=== PATIENT | female | born 1965 | race African-American/Black ===

== ENCOUNTER 2017-12-24 07:43 | Emergency (ER) | payer MEDICARE ==
[2017-12-24] MEDS ORDERED: Nitroglycerin 0.4 MG TAB (25 Tab Bottle) ONE (08:51)
--- NOTE | 2017-12-24 09:01 | RAD ---
SINGLE VIEW OF THE CHEST: COMPARISON: 07/01/16. HISTORY: Intermittent left posterior upper back pain. FINDINGS: A single view of the chest shows an enlarged but stable cardiomediastinal silhouette. Increased inte rstitial lung markings are present. Hilar fullness likely represents pulmonary vasculature. There i s no evidence of consolidation, mass, or pleural effusion. IMPRESSION: Cardiomegaly without evidence of acute cardiopulmonary disease. POS: [facility]
[2017-12-24 09:42] LABS: #Eosinphils 0.1 thou/uL (0.0-0.7); #Lymphocytes 0.7 thou/uL (1.20-3.40); #Monocytes 0.4 thou/uL (0.11-0.59); #Neutrophils 4.3 thou/uL (1.40-6.50); %Basophils 0.1 % (0.0-1.0); %Eosinophils 1.1 % (0.0-10.0); %Lymphocytes 13.1 % (21.0-51.0); %Monocytes 7.6 % (0.0-10.0); %Neutrophils 78.1 % (42.0-75.0); Mean Corpuscular HGB CONC 32.2 g/dL (32.0-36.0); Mean Corpuscular Hemoglobin 29.4 pg (27.0-31.0); Mean Corpuscular Volume 91.2 fL (78.0-98.0); Mean Platelet Volume 8.2 fL (7.4-10.4); Platelet Count 191 thou/uL (130-400); RBC Distribution Width 14.1 % (11.5-14.5); Red Blood Cell (RBC) Count 4.77 mill/uL (4.20-5.40); White Blood Cell (WBC) Count 5.5 thou/uL (4.8-10.8)
[2017-12-24 10:02] LABS: ALT (SGPT) 17 U/L (8-55); AST (SGOT) 16 U/L (5-34); Alkaline Phosphatase 62 U/L (40-150); Anion Gap 14 mmol/L (10-20); BUN (Urea Nitrogen) 9 mg/dL (9.8-20.1); Bilirubin, Total 0.9 mg/dL (0.2-1.2); CK (CPK) 50 U/L (29-168); Calc. Creatinine Clearance 0 mL/min (70-130); Calcium 9.4 mg/dL (7.8-10.44); Carbon Dioxide 29 mmol/L (22-29); Chloride 104 mmol/L (98-107); Estimated GFR-MDRD 90; Globulin 3.2 g/dL (2.4-3.5); Glucose 95 mg/dL (70-105); Lipase 20 U/L (8-78); Potassium 3.5 mmol/L (3.5-5.1); Protein, Total 7.2 g/dL (6.0-8.3); Sodium 143 mmol/L (136-145)
[2017-12-24 10:06] LABS: CKMB 0.8 ng/mL (0-6.6); Troponin I Less than 0.010 ng/mL (< 0.028)
[2017-12-24] MEDS ORDERED: hydrALAZINE 20 MG/ML VIAL ONE ×2 (10:13→11:37)
[2017-12-24] MEDS ORDERED: ISOVUE-370 76%-LOCM 1 ML ONE (12:13)
--- NOTE | 2017-12-24 12:13 | CT ---
CTA OF THE CHEST WITH CONTRAST: COMPARISON: None. HISTORY: Intermittent left upper back pain that radiates to the shoulder and elevated D-dimer. Chest pain. TECHNIQUE: Multiple contiguous axial images were obtained in a CTA of the chest with contrast per pulmonary embo lism protocol. Three-D oblique MIP reformats and direct coronal reformats were performed. FINDINGS: The pulmonary arteries are well opacified without filling defect to suggest pulmonary emboli. The he art is normal in size without focal cardiac abnormality. No hilar or mediastinal lymphadenopathy is seen. No focal infiltrates are seen in the lungs. No pneumothorax or pleural effusion is seen. No suspici ous pulmonary nodules are present. The visualized subdiaphragmatic structures are unremarkable. Degenerative changes are seen in the sp ine. Edema is seen in the abdominal wall. The chest wall soft tissues are unremarkable. IMPRESSION: No evidence of pulmonary thromboembolism. POS: [facility]
[2017-12-24] MEDS ORDERED: Diazepam 5 MG TAB ONE (13:31)
[2017-12-24 13:43] LABS: Troponin I Less than 0.010 ng/mL (< 0.028)
== END 2017-12-24 14:46 | disposition home or self-care (01) ==
LOC: ERS 07:43
DX: M54.6 Pain in thoracic spine (principal); I10 Essential (primary) hypertension; I48.91 Unspecified atrial fibrillation; Z79.899 Other long term (current) drug therapy
CPT/HCPCS: 71045; 71275; 80053; 82550; 82553; 83690; 83880; 84484; 85025; 85379; 93005; 96374; 96376; J0360

== ENCOUNTER 2018-03-30 08:56 | Outpatient (CLI) | payer MEDICARE | END 2018-03-30 08:57 | disposition home or self-care (01) | LOC: BICMAMMO 08:56 | PROVIDERS: ATTEND Internal Medicine | DX: Z12.31 Encounter for screening mammogram for malignant neoplasm of breast (principal) | CPT/HCPCS: 77063; 77067 ==

== ENCOUNTER 2018-06-03 10:28 | Inpatient (IN) | payer MEDICARE ==
--- NOTE | 2018-06-03 11:22 | RAD ---
PA AND LATERAL CHEST: Date: 06/03/18 INDICATION: History of bronchitis with coughing up mucus, concern for pneumonia. COMPARISON: Prior exam dated 12/24/17. FINDINGS: There is cardiomegaly with mild pulmonary vascular congestion. This is much worse than seen on the co mparison examination. There is some perihilar and interstitial prominence possibly related to edema. No pleural effusion or pneumothorax is evident. IMPRESSION: Cardiomegaly with worsening pulmonary vascular congestion. Perihilar and interstitial prominence susp icious for edema. No air space consolidation to suggest pneumonia. POS: [facility]
[2018-06-03 11:51] LABS: #Lymphocytes 0.5 thou/uL (1.20-3.40); #Monocytes 0.2 thou/uL (0.11-0.59); #Neutrophils 7.3 thou/uL (1.40-6.50); %Basophils 0.2 % (0.0-1.0); %Eosinophils 0.3 % (0.0-10.0); %Lymphocytes 6.5 % (21.0-51.0); %Monocytes 2.8 % (0.0-10.0); %Neutrophils 90.3 % (42.0-75.0); Hemoglobin 14.1 g/dL (12.0-16.0); Mean Corpuscular HGB CONC 30.5 g/dL (32.0-36.0); Mean Corpuscular Hemoglobin 28.1 pg (27.0-31.0); Mean Platelet Volume 8.6 fL (7.4-10.4); Platelet Count 177 thou/uL (130-400); RBC Distribution Width 15.9 % (11.5-14.5); Red Blood Cell (RBC) Count 5.02 mill/uL (4.20-5.40); White Blood Cell (WBC) Count 8.1 thou/uL (4.8-10.8)
[2018-06-03] MEDS ORDERED: Furosemide 40 MG TAB ONE (12:04)
[2018-06-03] MEDS ORDERED: Nitroglycerin 2% Ointment 1 INCH/1 GM Packet ONE (12:04)
[2018-06-03] MEDS ORDERED: Furosemide 40 MG/4 ML VIAL ONE (12:05)
[2018-06-03 12:12] LABS: ALT (SGPT) 38 U/L (8-55); AST (SGOT) 30 U/L (5-34); Albumin 3.6 g/dL (3.5-5.0); Alkaline Phosphatase 57 U/L (40-150); Anion Gap 12 mmol/L (10-20); BUN (Urea Nitrogen) 14 mg/dL (9.8-20.1); Bilirubin, Total 0.7 mg/dL (0.2-1.2); Calc. Creatinine Clearance 0 mL/min (70-130); Calcium 9.1 mg/dL (7.8-10.44); Carbon Dioxide 29 mmol/L (22-29); Chloride 101 mmol/L (98-107); Estimated GFR-MDRD 78; Globulin 3.1 g/dL (2.4-3.5); Glucose 137 mg/dL (70-105); Potassium 4.3 mmol/L (3.5-5.1); Protein, Total 6.7 g/dL (6.0-8.3); Sodium 138 mmol/L (136-145)
[2018-06-03 12:17] LABS: CKMB 1.1 ng/mL (0-6.6); Troponin I 0.017 ng/mL (< 0.028)
--- NOTE | 2018-06-03 15:39 | CT ---
CTA THORAX UTILIZING IV CONTRAST AND 3D REFORMATTED IMAGING: Date: 06/03/18 INDICATION: History of cough. COMPARISON: Prior exam dated 12/24/17. FINDINGS: No central or segmental pulmonary embolus is evident. There is some reticulonodular opacity seen in a perihilar distribution, but most prominent within the right upper lobe and right lower lobe, suspici ous for bronchiolitis. There are enlarged lymph nodes within the right hilar region and right aspect of the mediastinum. One of the largest lymph nodes is seen within the right paratracheal region on im age 19 of series 2 measuring 1.4 cm. There is slight prominence of the prevascular lymph nodes. No ac [place] osseous abnormality is evident. IMPRESSION: 1. Findings suspicious for right-sided bronchiolitis, predominantly in right upper lobe and right lo wer lobe, with suspected reactive lymphadenopathy of the right hilar region and mediastinum. CT follo w-up in 6-8 weeks to document resolution is recommended. 2. No central or segmental pulmonary embolus. POS: [facility]
[2018-06-03] MEDS ORDERED: Magnesium 2 GM/50 ML BAG (IN WATER) ONE (16:15)
[2018-06-03] MEDS ORDERED: Water For Inject, Bacteriostat 30 ML ONE (16:15)
[2018-06-03] MEDS ORDERED: methylPREDNISolone Sod Succ/PF 125 MG/2 ML VIAL ONE (16:15)
[2018-06-03] MEDS ORDERED: Iopamidol 370 76% 100 ML VIAL ONE (16:24)
[2018-06-03] MEDS ORDERED: cloNIDine 0.1 MG TAB ONE (18:52)
[2018-06-03] MEDS ORDERED: hydrALAZINE 20 MG/ML VIAL SLOW IVP PRN (20:06)
[2018-06-03] MEDS ORDERED: Loratadine 10 MG TAB PO PRN (20:09)
[2018-06-03] MEDS ORDERED: hydrALAZINE 25 MG TAB PO SCH (20:15)
[2018-06-03] MEDS ORDERED: Flecainide 50 MG TAB PO SCH (20:15)
[2018-06-03] MEDS ORDERED: Carvedilol 25 MG TAB PO SCH (20:15)
[2018-06-03 20:32] VITALS: BMI 65.6
[2018-06-03] MEDS ORDERED: Sodium Chloride 0.9% 10 ML ONE (20:49)
[2018-06-03] MEDS: Diabetic Tussin 200 MG/10 ML UDCUP PO PRN (21:03)
[2018-06-04] MEDS ORDERED: Senokot S 8.6-50 MG TAB PO PRN (01:07)
[2018-06-04] MEDS ORDERED: Ondansetron PF 4 MG/2 ML Vial IVP PRN (01:07)
[2018-06-04] MEDS ORDERED: Bisacodyl 5 MG TAB PO PRN (01:07)
[2018-06-04] MEDS ORDERED: Acetaminophen 325 MG TAB PO PRN (01:07)
[2018-06-04] MEDS ORDERED: Acetaminophen 650 MG Suppository PR PRN (01:07)
[2018-06-04] MEDS ORDERED: Ondansetron ODT 4 MG TAB PO PRN (01:07)
[2018-06-04] MEDS ORDERED: Zolpidem Tartrate 5 MG TAB PO PRN (01:07)
[2018-06-04] MEDS: Diabetic Tussin 200 MG/10 ML UDCUP PO PRN (05:58)
[2018-06-04 06:01] LABS: Anion Gap 14 mmol/L (10-20); BUN (Urea Nitrogen) 17 mg/dL (9.8-20.1); Calc. Creatinine Clearance 184 mL/min (70-130); Calcium 8.9 mg/dL (7.8-10.44); Carbon Dioxide 31 mmol/L (22-29); Chloride 102 mmol/L (98-107); Estimated GFR-MDRD 83; Glucose 139 mg/dL (70-105); Potassium 4.9 mmol/L (3.5-5.1); Sodium 142 mmol/L (136-145)
[2018-06-04 06:27] LABS: #Lymphocytes 0.6 thou/uL (1.20-3.40); #Monocytes 0.3 thou/uL (0.11-0.59); #Neutrophils 6.8 thou/uL (1.40-6.50); %Basophils 0.2 % (0.0-1.0); %Eosinophils 0.1 % (0.0-10.0); %Lymphocytes 8.3 % (21.0-51.0); %Monocytes 3.2 % (0.0-10.0); %Neutrophils 88.1 % (42.0-75.0); Mean Corpuscular HGB CONC 29.4 g/dL (32.0-36.0); Mean Corpuscular Hemoglobin 27.8 pg (27.0-31.0); Mean Corpuscular Volume 94.8 fL (78.0-98.0); Mean Platelet Volume 9.3 fL (7.4-10.4); PLT Morphology Comment Appears Adequate; Platelet Count 177 thou/uL (130-400); RBC Distribution Width 16.2 % (11.5-14.5); RBC Morphology Normal; Red Blood Cell (RBC) Count 5.02 mill/uL (4.20-5.40); White Blood Cell (WBC) Count 7.7 thou/uL (4.8-10.8)
[2018-06-04] MEDS: Budesonide 0.5 MG/2 ML NEB INH SCH ×2 (06:52→18:25)
[2018-06-04] MEDS: predniSONE 20 MG TAB PO SCH (07:53)
[2018-06-04] MEDS: Enoxaparin Sodium 40 MG/0.4 ML SYRINGE SC SCH (07:53)
[2018-06-04] MEDS: hydrALAZINE 25 MG TAB PO SCH ×2 (07:54→20:19)
[2018-06-04] MEDS: Flecainide 50 MG TAB PO SCH ×2 (07:54→20:19)
[2018-06-04] MEDS: Famotidine 20 MG TAB PO SCH ×2 (07:54→20:19)
[2018-06-04] MEDS: Famotidine/PF 20 mg/2ml Vial SLOW IVP SCH ×2 (07:55→20:28)
[2018-06-04] MEDS: Carvedilol 25 MG TAB PO SCH ×2 (07:55→20:18)
[2018-06-04] MEDS ORDERED: Furosemide 80 MG TAB PO SCH (09:00)
[2018-06-04] MEDS: Guaifenesin DM 100-10/5 ML UDCUP PO SCH ×2 (11:40→17:32)
[2018-06-04] MEDS ORDERED: methylPREDNISolone Sod Succ/PF 125 MG/2 ML VIAL IVP SCH (11:45)
[2018-06-04] MEDS: Furosemide 40 MG/4 ML VIAL SLOW IVP SCH (14:51)
[2018-06-04] MEDS: Atorvastatin Calcium 10 MG TAB PO SCH (20:19)
[2018-06-05] MEDS: Guaifenesin DM 100-10/5 ML UDCUP PO SCH ×5 (00:06→23:56)
[2018-06-05] MEDS: Furosemide 40 MG/4 ML VIAL SLOW IVP SCH ×2 (05:05→13:40)
--- NOTE | 2018-06-05 07:51 | HP ---
CHIEF COMPLAINT: The patient presented to the ER with significant shortness or breath and cough. HISTORY OF PRESENT ILLNESS: This is a 52-year-old female with a history of CHF and AFib, came in with acute bronchitis like symptoms, cough, and sputum. The patient was given antibiotics, cefuroxime, as an outpatient, for which she does not respond. In the ER, when she was evaluated, her O2 sats were in 80s. The patient was never on oxygen at home. The patient denies any history of fever. PAST MEDICAL HISTORY: Significant for; 1. AFib, the patient is not on any anticoagulation. 2. Hypertension. 3. Osteoarthritis. PAST SURGICAL HISTORY: Significant for hysterectomy. PSYCHIATRIC HISTORY: No previous psychiatric history. SOCIAL HISTORY: Denies any alcohol or drug use. She has no smoking history. REVIEW OF SYMPTOMS: CONSTITUTIONAL: Denies any fever or cough, but extremely fatigued. HEENT: Positive for cough and sputum and denies any headache or fever. Denies any discharge from the ears or the eyes. Denies any pain in the neck or sore throat. RESPIRATORY: The patient complains of cough and also sputum which is really thick. CARDIOVASCULAR: The patient denies any chest pain or palpitations. GASTROINTESTINAL: The patient denies any abdominal pain. Denies any nausea, vomiting, diarrhea, or constipation. GENITOURINARY: The patient denies any dysuria or increased frequency. MUSCULOSKELETAL: The patient denies any history of swelling of the joints or pain in the joints. SKIN: Denies any rash or skin changes. NEUROLOGIC: Denies any headache or focal deficits or sensory changes. PHYSICAL EXAMINATION: VITAL SIGNS: Pulse 83, respiratory rate 20, and temperature 98.9. Pain 4. O2 saturation on room air is around 84%. CONSTITUTIONAL: Vital signs are reviewed. The patient is afebrile. Pulse and respiratory rate are within normal limits, except the pulse oximetry that shows low oxygenation. HEENT: Normocephalic atraumatic head. Eyelids and conjunctivae are within normal limits. Pupils are round and reactive to light. External ears and tympanic membrane are within normal limits. NECK: Normal range of motions in the neck and midline trachea. RESPIRATORY/CHEST: Wheezes heard all over, coarse breath sounds. CARDIOVASCULAR: Regular rate and rhythm. No murmurs. GASTROINTESTINAL: Soft, nontender, and nondistended. No masses are felt. Positive bowel sounds. MUSCULOSKELETAL: No swelling or redness of the joints. No edema of the lower extremities. NEUROLOGIC: Within normal limits. Cranial nerves are intact. No focal deficits. No motor or sensory deficits noted. RADIOLOGY DATA: Chest x-ray showing pulmonary edema and bronchitis. Chest and thorax CTA did not show any pulmonary embolism, does show some bronchitis and pulmonary edema. Beta-natriuretic peptide is 617.5. ASSESSMENT AND PLAN: 1. Bronchitis. We will treat the patient with IV steroids and nebulizers and IV antibiotics Levaquin. Continue to monitor and switch to p.o. steroids soon. 2. Acute on chronic congestive heart failure. We will change the home p.o. Lasix to IV Lasix and monitor the fluid intake and strict I's and O's. 3. History of atrial fibrillation. Continue the patient's flecainide, the patient is not on any anticoagulation at home. 4. Hypertension. Continue the patient's home medication for hypertension. Job ID: [id number]
[2018-06-05] MEDS: Budesonide 0.5 MG/2 ML NEB INH SCH ×2 (08:19→18:17)
[2018-06-05] MEDS ORDERED: methylPREDNISolone Sod Succ/PF 125 MG/2 ML VIAL IVP SCH ×2 (09:00)
[2018-06-05] MEDS: predniSONE 20 MG TAB PO SCH (09:38)
[2018-06-05] MEDS: hydrALAZINE 25 MG TAB PO SCH ×2 (09:39→21:13)
[2018-06-05] MEDS: Famotidine/PF 20 mg/2ml Vial SLOW IVP SCH ×2 (09:40→21:13)
[2018-06-05] MEDS: Famotidine 20 MG TAB PO SCH ×2 (09:40→21:13)
[2018-06-05] MEDS: Flecainide 50 MG TAB PO SCH ×2 (09:40→21:13)
[2018-06-05] MEDS: Enoxaparin Sodium 40 MG/0.4 ML SYRINGE SC SCH (09:41)
[2018-06-05] MEDS: Carvedilol 25 MG TAB PO SCH ×2 (09:41→21:12)
--- NOTE | 2018-06-05 15:34 | PDOC.PN ---
- Subjective Encounter Start Date: 06/05/18 Encounter Start Time: 15:30 Subjective: f/u for acute bronchitis, CHF on Levaquin, Lasix, Duonebs and Prednisone. -: Feels tired and sleepy. - Objective Resuscitation Status - Order Detail: 06/04/18 01:07 Resuscitation Status Routine Resuscitation Status: FULL: Full Resuscitation MAR Reviewed: Yes Vital Signs & Weight: Vital Signs (12 hours) Temp Pulse Resp BP Pulse Ox 06/05/18 14:57 70 16 92 L 06/05/18 12:00 97.6 F 68 18 122/81 98 06/05/18 11:30 70 20 92 L 06/05/18 09:39 74 06/05/18 08:19 74 20 94 L 06/05/18 08:18 74 20 94 L 06/05/18 08:00 97.5 F L 82 18 110/64 94 L Weight Weight 345 lb 0.375 oz I&O: 06/04/18 06/05/18 06/06/18 06:59 06:59 06:59 Intake Total 465 1624 Output Total 600 900 Balance -135 724 Result Diagrams: 06/04/18 05:23 06/04/18 05:23 Additional Labs: Microbiology 06/03/18 17:06 Nasal swab Influenza Types A,B Direct EIA - Final Laboratory Tests 12/24/17 06/03/18 09:32 11:42 B-Natriuretic Peptide 253.0 H 617.5 H Radiology Reviewed by me: Yes (2D echo - EF 55%, mod pulm regurg, severe TR) EKG Reviewed by me: Yes (Tele - SR) Phys Exam - Physical Examination Constitutional: NAD HEENT: PERRLA, sclera anicteric, oral pharynx no lesions Neck: no nodes, no JVD, supple, full ROM II/ JOEY RUSB Cardiovascular: RRR Gastrointestinal: soft, non-tender, no distention, positive bowel sounds Musculoskeletal: pulses present Neurological: normal sensation, moves all 4 limbs Psychiatric: A&O x 3 Skin: normal turgor, cap refill <2 seconds Dx/Plan (1) Acute bronchitis Code(s): J20.9 - ACUTE BRONCHITIS, UNSPECIFIED Status: Acute Comment: Continue Levaquin, Duonebs, Prednisone, Pulmicort (2) Acute respiratory failure with hypoxia Code(s): J96.01 - ACUTE RESPIRATORY FAILURE WITH HYPOXIA Status: Acute Comment: O2 supplementation to maintain sats > 90%, wean as clinically indicated (3) Acute on chronic diastolic (congestive) heart failure Code(s): I50.33 - ACUTE ON CHRONIC DIASTOLIC (CONGESTIVE) HEART FAILURE Status : Acute Comment: EF 50-55%, continue IV Lasix another 24h then convert to po, 2L/24h fluid restriction (4) HTN (hypertension) Code(s): I10 - ESSENTIAL (PRIMARY) HYPERTENSION Status: Chronic Qualifiers: Hypertension type: essential hypertension Qualified Code(s): I10 - Essential (primary) hypertension Comment: Continue Carvedilol (5) Morbid obesity Code(s): E66.01 - MORBID (SEVERE) OBESITY DUE TO EXCESS CALORIES Status: Chronic (6) Chronic atrial fibrillation Code(s): I48.2 - CHRONIC ATRIAL FIBRILLATION Status: Chronic Comment: continue Tambocor, Coreg, current SR - Plan plan discussed w/ family, continue antibiotics, PT/OT, high school social studies tutor, respiratory therapy, out of bed/ambulate, DVT proph w/SCDs Stable currently -: Continue Levaquin -: Continue Prednisone, Duonebs, Pulmicort -: Continue Lasix IV another 24h then convert to po -: AM lab: BMP * .
[2018-06-05] MEDS ORDERED: Allopurinol 300 MG TAB PO SCH (16:00)
[2018-06-05] MEDS: Atorvastatin Calcium 10 MG TAB PO SCH (21:12)
[2018-06-06 05:30] LABS: Anion Gap 12 mmol/L (10-20); BUN (Urea Nitrogen) 22 mg/dL (9.8-20.1); Calc. Creatinine Clearance 199 mL/min (70-130); Calcium 9.3 mg/dL (7.8-10.44); Carbon Dioxide 37 mmol/L (22-29); Chloride 99 mmol/L (98-107); Estimated GFR-MDRD 90; Glucose 119 mg/dL (70-105); Potassium 4.7 mmol/L (3.5-5.1); Sodium 143 mmol/L (136-145)
[2018-06-06] MEDS: Furosemide 40 MG/4 ML VIAL SLOW IVP SCH ×2 (05:35→16:15)
[2018-06-06] MEDS: Guaifenesin DM 100-10/5 ML UDCUP PO SCH ×3 (05:35→17:16)
[2018-06-06] MEDS: Budesonide 0.5 MG/2 ML NEB INH SCH ×2 (07:45→19:17)
[2018-06-06] MEDS: Flecainide 50 MG TAB PO SCH ×2 (09:28→21:17)
[2018-06-06] MEDS: Famotidine/PF 20 mg/2ml Vial SLOW IVP SCH ×3 (09:29→23:01)
[2018-06-06] MEDS: Famotidine 20 MG TAB PO SCH ×2 (09:33→21:17)
[2018-06-06] MEDS: Enoxaparin Sodium 40 MG/0.4 ML SYRINGE SC SCH (09:33)
[2018-06-06] MEDS: hydrALAZINE 25 MG TAB PO SCH ×2 (09:34→21:17)
[2018-06-06] MEDS: Allopurinol 300 MG TAB PO SCH (09:34)
[2018-06-06] MEDS: Carvedilol 25 MG TAB PO SCH ×2 (09:34→21:18)
[2018-06-06] MEDS: predniSONE 20 MG TAB PO SCH (09:35)
--- NOTE | 2018-06-06 15:17 | PDOC.PN ---
- Subjective Encounter Start Date: 06/06/18 Encounter Start Time: 15:10 Subjective: f/u for acute bronchitis, CHF on Levaquin, Duonebs, Prednisone. -: Overall feeling better but still with desaturations while ambulating - Objective Resuscitation Status - Order Detail: 06/04/18 01:07 Resuscitation Status Routine Resuscitation Status: FULL: Full Resuscitation MAR Reviewed: Yes Vital Signs & Weight: Vital Signs (12 hours) Temp Pulse Resp BP BP Pulse Ox 06/06/18 14:30 82 20 96 06/06/18 12:00 97.8 F 72 16 94 L 06/06/18 10:23 79 20 95 06/06/18 09:34 75 06/06/18 09:24 99.1 F 75 18 138/86 96 06/06/18 07:45 77 20 97 06/06/18 07:42 77 20 97 06/06/18 04:00 97.8 F 76 13 137/78 99 Weight Weight 343 lb 3.2 oz I&O: 06/05/18 06/06/18 06/07/18 06:59 06:59 06:59 Intake Total 1624 480 480 Output Total 900 700 Balance 724 -220 480 Result Diagrams: 06/04/18 05:23 06/06/18 04:42 Additional Labs: Microbiology 06/03/18 17:06 Nasal swab Influenza Types A,B Direct EIA - Final Laboratory Tests 12/24/17 06/03/18 09:32 11:42 B-Natriuretic Peptide 253.0 H 617.5 H EKG Reviewed by me: Yes (Tele - SR) Phys Exam - Physical Examination Constitutional: NAD HEENT: PERRLA, sclera anicteric, oral pharynx no lesions Neck: no nodes, no JVD, supple, full ROM diminished breath sounds bilat, occ exp wheezes II/ JOEY S1, S2 Cardiovascular: RRR, no significant murmur, no rub, gallop Gastrointestinal: soft, non-tender, no distention, positive bowel sounds Musculoskeletal: pulses present, edema present Neurological: normal sensation, moves all 4 limbs Psychiatric: normal affect, A&O x 3 Skin: normal turgor, cap refill <2 seconds Dx/Plan (1) Acute bronchitis Code(s): J20.9 - ACUTE BRONCHITIS, UNSPECIFIED Status: Acute Comment: Continue Levaquin, Duonebs, Prednisone, Pulmicort (2) Acute respiratory failure with hypoxia Code(s): J96.01 - ACUTE RESPIRATORY FAILURE WITH HYPOXIA Status: Acute Comment: O2 supplementation to maintain sats > 90%, wean as clinically indicated (3) Acute on chronic diastolic (congestive) heart failure Code(s): I50.33 - ACUTE ON CHRONIC DIASTOLIC (CONGESTIVE) HEART FAILURE Status : Acute Comment: EF 50-55%, continue IV Lasix another 24h then convert to po, 2L/24h fluid restriction (4) HTN (hypertension) Code(s): I10 - ESSENTIAL (PRIMARY) HYPERTENSION Status: Chronic Qualifiers: Hypertension type: essential hypertension Qualified Code(s): I10 - Essential (primary) hypertension Comment: Continue Carvedilol (5) Morbid obesity Code(s): E66.01 - MORBID (SEVERE) OBESITY DUE TO EXCESS CALORIES Status: Chronic (6) Chronic atrial fibrillation Code(s): I48.2 - CHRONIC ATRIAL FIBRILLATION Status: Chronic Comment: continue Tambocor, Coreg, current SR - Plan plan discussed w/ family, continue antibiotics, PT/OT, social work supervisor, respiratory therapy, out of bed/ambulate, DVT proph w/SCDs Stable currently -: Convert Levaquin 500mg po daily -: Change Prednisone 40mg po daily -: Mucinex 600mg BID -: Humidify O2 *
[2018-06-06] MEDS ORDERED: predniSONE 20 MG TAB PO SCH (15:45)
[2018-06-06] MEDS ORDERED: guaiFENesin ER 600 MG TAB PO SCH (17:00)
[2018-06-06] MEDS: Atorvastatin Calcium 10 MG TAB PO SCH (21:18)
[2018-06-06] MEDS: Diltiazem HCl 125 MG, Admixture Fee 1 EACH in Sodium Chloride 0.9% 100 ML IVPB SCH (22:47)
[2018-06-07] MEDS: Guaifenesin DM 100-10/5 ML UDCUP PO SCH ×5 (00:16→23:33)
[2018-06-07] MEDS: Furosemide 40 MG/4 ML VIAL SLOW IVP SCH ×2 (06:11→14:50)
[2018-06-07] MEDS: Budesonide 0.5 MG/2 ML NEB INH SCH ×2 (07:20→19:17)
[2018-06-07] MEDS ORDERED: predniSONE 20 MG TAB PO SCH (08:00)
[2018-06-07] MEDS: predniSONE 20 MG TAB PO SCH (08:31)
[2018-06-07] MEDS: Allopurinol 300 MG TAB PO SCH (08:31)
[2018-06-07] MEDS: Famotidine 20 MG TAB PO SCH ×2 (08:31→22:24)
[2018-06-07] MEDS: guaiFENesin ER 600 MG TAB PO SCH ×2 (08:32→22:24)
[2018-06-07] MEDS: Flecainide 50 MG TAB PO SCH ×2 (08:32→22:23)
[2018-06-07] MEDS: Carvedilol 25 MG TAB PO SCH ×2 (08:32→22:25)
[2018-06-07] MEDS: hydrALAZINE 25 MG TAB PO SCH ×2 (08:32→22:24)
[2018-06-07] MEDS: Enoxaparin Sodium 40 MG/0.4 ML SYRINGE SC SCH (09:41)
[2018-06-07] MEDS: Famotidine/PF 20 mg/2ml Vial SLOW IVP SCH ×2 (09:41→22:52)
[2018-06-07] MEDS ORDERED: Apixaban 5 MG TAB PO SCH (10:15)
[2018-06-07] MEDS: Diltiazem HCl 125 MG, Admixture Fee 1 EACH in Sodium Chloride 0.9% 100 ML IVPB SCH (15:30)
--- NOTE | 2018-06-07 18:02 | PDOC.PN ---
- Subjective Encounter Start Date: 06/07/18 Encounter Start Time: 17:20 Subjective: f/u for acute resp failure, bronchitis and A-fib with variable rate. -: Feels a little better and less SOB at rest but worse with ambulating. -: Still weak. - Objective Resuscitation Status - Order Detail: 06/04/18 01:07 Resuscitation Status Routine Resuscitation Status: FULL: Full Resuscitation MAR Reviewed: Yes Vital Signs & Weight: Vital Signs (12 hours) Temp Pulse Pulse Pulse Resp BP BP 06/07/18 16:58 97.4 F L 106 H 18 06/07/18 14:21 115 H 16 06/07/18 11:46 97.7 F 125 H 20 06/07/18 11:38 113 H 20 06/07/18 11:23 126 H 124 H 120/87 140/76 06/07/18 08:28 06/07/18 08:26 98.2 F 117 H 20 06/07/18 07:21 06/07/18 07:19 132 H 16 BP BP Pulse Ox Pulse Ox Pulse Ox 06/07/18 16:58 142/79 H 92 L 06/07/18 14:21 06/07/18 11:46 124/57 L 97 06/07/18 11:38 06/07/18 11:23 90 L 90 L 06/07/18 08:28 96 06/07/18 08:26 134/93 H 96 06/07/18 07:21 92 L 06/07/18 07:19 92 L Weight Weight 341 lb 3.2 oz I&O: 06/06/18 06/07/18 06/08/18 06:59 06:59 06:59 Intake Total 480 1410 Output Total 700 3400 Result Diagrams: 06/04/18 05:23 06/06/18 04:42 Additional Labs: Microbiology 06/03/18 17:06 Nasal swab Influenza Types A,B Direct EIA - Final Laboratory Tests 12/24/17 06/03/18 06/06/18 09:32 11:42 20:25 Magnesium 1.9 Ferritin B-Natriuretic Peptide 253.0 H 617.5 H 06/07/18 05:25 Magnesium Ferritin 80.78 B-Natriuretic Peptide EKG Reviewed by me: Yes (Tele - A-fib in low 100's) Phys Exam - Physical Examination Constitutional: NAD HEENT: PERRLA, sclera anicteric, oral pharynx no lesions Neck: no nodes, no JVD, supple, full ROM scattered coarse sounds, few exp wheezes, diminished in bases S1, S2 Cardiovascular: no significant murmur, no rub, gallop, irregular Gastrointestinal: soft, non-tender, no distention, positive bowel sounds Musculoskeletal: pulses present, edema present Neurological: normal sensation, moves all 4 limbs Psychiatric: A&O x 3 Skin: normal turgor, cap refill <2 seconds Dx/Plan (1) Acute bronchitis Code(s): J20.9 - ACUTE BRONCHITIS, UNSPECIFIED Status: Acute Comment: Continue Levaquin, Duonebs, Prednisone, Pulmicort (2) Acute respiratory failure with hypoxia Code(s): J96.01 - ACUTE RESPIRATORY FAILURE WITH HYPOXIA Status: Acute Comment: O2 supplementation to maintain sats > 90%, wean as clinically indicated (3) Acute on chronic diastolic (congestive) heart failure Code(s): I50.33 - ACUTE ON CHRONIC DIASTOLIC (CONGESTIVE) HEART FAILURE Status : Acute Comment: EF 50-55%, continue IV Lasix another 24h then convert to po, 2L/24h fluid restriction (4) HTN (hypertension) Code(s): I10 - ESSENTIAL (PRIMARY) HYPERTENSION Status: Chronic Qualifiers: Hypertension type: essential hypertension Qualified Code(s): I10 - Essential (primary) hypertension Comment: Continue Carvedilol (5) Morbid obesity Code(s): E66.01 - MORBID (SEVERE) OBESITY DUE TO EXCESS CALORIES Status: Chronic (6) Chronic atrial fibrillation Code(s): I48.2 - CHRONIC ATRIAL FIBRILLATION Status: Chronic Comment: continue Tambocor, Coreg, plan for cardioversion - Plan plan discussed w/ family, continue antibiotics, PT/OT, licensed clinical social worker, respiratory therapy, out of bed/ambulate Stable currently -: Continue Levaquin/Prednisone -: Humidified O2, Duonebs -: Continue rate-control measures, Cardizem gtt -: Eliquis 5mg BID * .
--- NOTE | 2018-06-07 21:48 | CON ---
DATE OF CONSULT: 06/07/18 The patient is a 55-year-old woman with a history of atrial flutter who presents with increasing dyspnea. The patient has a history of hypertension and congestive heart failure secondary to diastolic dysfunction. She also has a history of atrial fibrillation. The patient has previously undergone ablation for atrial flutter. She subsequently has been placed on Flecanide. The patient has been followed primarily by the EP service. She was admitted with dyspnea and bronchitis. The patient during her hospitalization went into a rapid irregular heart rhythm. Patient did not have any palpitations or chest discomfort. She reports feeling dyspneic. PAST MEDICAL HISTORY: 1. Atrial fibrillation/flutter. 2. Hypertension. 3. Morbid obesity. 4. Osteoarthritis. PAST SURGICAL HISTORY: Hysterectomy. SOCIAL HISTORY: She is a nonsmoker. ALLERGIES: Lisinopril, Penicillin, Bystolic, Duloxetine and Cymbalta. MEDICATIONS: See nursing list. PHYSICAL EXAMINATION: GENERAL: This is a morbidly obese woman in mild distress with a blood pressure of 134/93. NECK: Showed no jugular venous distention. LUNGS: Coarse breath sounds bilateral. HEART: Irregular rate and rhythm. Normal S1 and S2 with distant heart sounds. ABDOMEN: Markedly distended. EXTREMITIES: Show mild bilateral edema. VASCULAR: Radial pulses are 2+. LABORATORY RESULTS: White blood count 7.7, hemoglobin 14, hematocrit 47.6, platelets 177,000. Sodium 143, potassium 4.7, chloride 99, bicarbonate 32, BUN 22, creatinine 0.8. Troponin 0.017. EKG reveals atrial fibrillation with a rapid ventricular response. Echocardiogram revealed normal left ventricular ejection fraction of 50-55%. Severe tricuspid regurgitation with pulmonary hypertension. IMPRESSION: 1. Paroxysmal atrial fibrillation. 2. Bronchitis. 3. Hypertension. 4. Morbid obesity. 5. Pulmonary hypertension. 6. Severe tricuspid regurgitation. This patient presents with recurrent atrial fibrillation with a rapid ventricular response. Would recommend the patient undergo electrical cardioversion. In addition, the patient will need to be on chronic anticoagulation therapy as she has a CHADS-VASc score of 2. The life threatening consequences of her developing progressive pulmonary hypertension from her morbid obesity have been explained to the patient. She will need to undergo a sleep study. We will start anticoagulation therapy with Eliquis. We will follow this patient with you through her hospitalization. ANKUSH
--- NOTE | 2018-06-07 22:05 | EKG ---
Test Reason : STAT Blood Pressure : / mmHG Vent. Rate : 152 BPM Atrial Rate : 147 BPM P-R Int : 000 ms QRS Dur : 094 ms QT Int : 318 ms P-R-T Axes : 000 -42 072 degrees QTc Int : 505 ms Atrial fibrillation with rapid ventricular response Left axis deviation Possible Anterior infarct , age undetermined Abnormal ECG When compared with ECG of 03-JUN-2018 10:54, (Unconfirmed) Atrial fibrillation has replaced Sinus rhythm Vent. rate has increased BY 69 BPM QRS axis Shifted left Confirmed by Ricardo DIOR ([id number]) on 06/07/2018 10:04:45 PM Referred By: DAVID Confirmed By:Ricardo DIOR
[2018-06-07] MEDS: Apixaban 5 MG TAB PO SCH (22:24)
[2018-06-07] MEDS: Atorvastatin Calcium 10 MG TAB PO SCH (22:24)
[2018-06-08 06:06] LABS: Platelet Count 165 thou/uL (130-400)
[2018-06-08] MEDS: Guaifenesin DM 100-10/5 ML UDCUP PO SCH ×3 (06:16→18:42)
[2018-06-08] MEDS ORDERED: Sodium Chloride 0.9% 10 ML ONE (07:25)
[2018-06-08] MEDS: Budesonide 0.5 MG/2 ML NEB INH SCH ×3 (07:34→19:09)
[2018-06-08] MEDS: Furosemide 40 MG/4 ML VIAL SLOW IVP SCH ×2 (07:41→13:00)
[2018-06-08] MEDS ORDERED: PROPOFOL 40 ML ONE (07:46)
[2018-06-08] MEDS: Allopurinol 300 MG TAB PO SCH (09:39)
[2018-06-08] MEDS: predniSONE 20 MG TAB PO SCH (09:39)
[2018-06-08] MEDS: guaiFENesin ER 600 MG TAB PO SCH ×2 (09:40→20:58)
[2018-06-08] MEDS: Apixaban 5 MG TAB PO SCH ×2 (09:40→20:59)
[2018-06-08] MEDS: Carvedilol 25 MG TAB PO SCH ×2 (09:40→20:59)
[2018-06-08] MEDS: Famotidine/PF 20 mg/2ml Vial SLOW IVP SCH ×2 (09:40→22:36)
[2018-06-08] MEDS: Famotidine 20 MG TAB PO SCH ×2 (09:40→20:59)
[2018-06-08] MEDS: hydrALAZINE 25 MG TAB PO SCH ×2 (09:40→20:57)
[2018-06-08] MEDS: Flecainide 50 MG TAB PO SCH ×2 (09:40→20:58)
[2018-06-08] MEDS ORDERED: PROPOFOL 200 MG/20 ML VIAL ONE (11:31)
--- NOTE | 2018-06-08 13:59 | PDOC.PN ---
- Subjective Encounter Start Date: 06/08/18 Encounter Start Time: 14:00 Subjective: f/u for acute dyspnea, bronchitis and s/p cardioversion for PAF after RAPHAEL. -: Converted back to SR. - Objective Resuscitation Status - Order Detail: 06/04/18 01:07 Resuscitation Status Routine Resuscitation Status: FULL: Full Resuscitation MAR Reviewed: Yes Vital Signs & Weight: Vital Signs (12 hours) Temp Pulse Resp BP BP Pulse Ox 06/08/18 11:15 97.9 F 67 20 108/65 98 06/08/18 09:48 87 20 89 L 06/08/18 09:35 99 06/08/18 09:30 97.3 F L 71 20 129/81 99 06/08/18 04:00 97.6 F 119 H 19 103/79 94 L 06/08/18 02:08 115 H 18 92 L Weight Weight 334 lb 9.6 oz I&O: 06/07/18 06/08/18 06/09/18 06:59 06:59 06:59 Intake Total 1410 200 Output Total 3400 300 Balance -1989 Result Diagrams: 06/08/18 04:32 06/08/18 04:32 Additional Labs: Microbiology 06/03/18 17:06 Nasal swab Influenza Types A,B Direct EIA - Final Laboratory Tests 12/24/17 06/03/18 06/06/18 09:32 11:42 20:25 Magnesium 1.9 Ferritin B-Natriuretic Peptide 253.0 H 617.5 H 06/07/18 05:25 Magnesium Ferritin 80.78 B-Natriuretic Peptide EKG Reviewed by me: Yes (Tele - SR) Phys Exam - Physical Examination Constitutional: NAD HEENT: PERRLA, sclera anicteric, oral pharynx no lesions Neck: no nodes, no JVD, supple, full ROM few scattered coarse sounds S1, S2 II/ JOEY Cardiovascular: RRR, no rub, gallop Gastrointestinal: soft, non-tender, no distention, positive bowel sounds Musculoskeletal: pulses present, edema present Neurological: normal sensation, moves all 4 limbs Psychiatric: A&O x 3 Skin: normal turgor, cap refill <2 seconds Dx/Plan (1) Acute bronchitis Code(s): J20.9 - ACUTE BRONCHITIS, UNSPECIFIED Status: Acute Comment: Continue Levaquin, Duonebs, Prednisone, Pulmicort (2) Acute respiratory failure with hypoxia Code(s): J96.01 - ACUTE RESPIRATORY FAILURE WITH HYPOXIA Status: Acute Comment: O2 supplementation to maintain sats > 90%, wean as clinically indicated (3) Acute on chronic diastolic (congestive) heart failure Code(s): I50.33 - ACUTE ON CHRONIC DIASTOLIC (CONGESTIVE) HEART FAILURE Status : Acute Comment: EF 50-55%, continue IV Lasix another 24h then convert to po, 2L/24h fluid restriction (4) HTN (hypertension) Code(s): I10 - ESSENTIAL (PRIMARY) HYPERTENSION Status: Chronic Qualifiers: Hypertension type: essential hypertension Qualified Code(s): I10 - Essential (primary) hypertension Comment: Continue Carvedilol (5) Morbid obesity Code(s): E66.01 - MORBID (SEVERE) OBESITY DUE TO EXCESS CALORIES Status: Chronic (6) Chronic atrial fibrillation Code(s): I48.2 - CHRONIC ATRIAL FIBRILLATION Status: Chronic Comment: Continue Coreg, Tambocor, converted back to SR s/p cardiac ablation - Plan continue antibiotics, PT/OT, protective services social worker, respiratory therapy, out of bed/ ambulate Stable currently -: Continue pulmonary supportive mgmt -: Continue Eliquis 5mg BID -: Consider evaluation for home O2 -: Continue Prednisone 40mg daily * AM lab: H/H, creatinine * Likely home in 24-48h
[2018-06-08] MEDS: Atorvastatin Calcium 10 MG TAB PO SCH (20:58)
--- NOTE | 2018-06-08 21:42 | ECHO ---
52-year-old woman with paroxysmal atrial fibrillation. The patient was taken to the PACU. The patient was sedated by anesthesiology. A transesophageal pro be was placed into the distal esophagus and stomach. Echocardiographic images were obtained. The tr ansesophageal probe was removed. FINDINGS: 1. Normal left ventricular systolic function. 2. Normal mitral and aortic valves. 3. Mild mitral regurgitation. 4. Mild tricuspid regurgitation. 5. No thrombus in atrium or left atrial appendage. 6. Atherosclerotic debris in the descending aorta. IMPRESSION: No formed thrombus in the left atrial or left atrial appendage.
--- NOTE | 2018-06-08 21:45 | OP ---
52-year-old woman with paroxysmal atrial fibrillation. This patient was taken to the PACU. The patient was sedated by anesthesiology. The patient was shocke d by with 200 joules of synchronized electricity. The patient converted to normal sinus rhythm. IMPRESSION: Successful electrocardioversion.
[2018-06-09] MEDS: Guaifenesin DM 100-10/5 ML UDCUP PO SCH ×4 (00:21→17:34)
[2018-06-09] MEDS: Furosemide 40 MG/4 ML VIAL SLOW IVP SCH ×2 (06:11→14:13)
[2018-06-09] MEDS: Budesonide 0.5 MG/2 ML NEB INH SCH ×2 (07:27→19:30)
[2018-06-09] MEDS: Apixaban 5 MG TAB PO SCH ×2 (08:17→20:26)
[2018-06-09] MEDS: hydrALAZINE 25 MG TAB PO SCH ×2 (08:17→20:26)
[2018-06-09] MEDS: guaiFENesin ER 600 MG TAB PO SCH ×2 (08:18→20:26)
[2018-06-09] MEDS: Famotidine 20 MG TAB PO SCH ×2 (08:18→20:26)
[2018-06-09] MEDS: predniSONE 20 MG TAB PO SCH (08:18)
[2018-06-09] MEDS: Carvedilol 25 MG TAB PO SCH ×2 (08:18→20:26)
[2018-06-09] MEDS: Famotidine/PF 20 mg/2ml Vial SLOW IVP SCH (08:18)
[2018-06-09] MEDS: Flecainide 50 MG TAB PO SCH ×2 (08:18→20:26)
[2018-06-09] MEDS: Allopurinol 300 MG TAB PO SCH (08:18)
--- NOTE | 2018-06-09 16:08 | PDOC.PN ---
- Subjective Encounter Start Date: 06/09/18 Encounter Start Time: 16:00 Subjective: f/u for A-fib s/p cardioversion with current SR. Feels ok overall. -: Off supplemental O2 currently and feeling better. - Objective Resuscitation Status - Order Detail: 06/04/18 01:07 Resuscitation Status Routine Resuscitation Status: FULL: Full Resuscitation MAR Reviewed: Yes Vital Signs & Weight: Vital Signs (12 hours) Temp Pulse Pulse Pulse Resp BP BP 06/09/18 15:49 99.2 F 88 18 06/09/18 15:01 72 20 06/09/18 11:54 98.7 F 75 18 06/09/18 11:09 80 73 153/95 H 131/86 06/09/18 10:47 75 16 06/09/18 08:17 74 06/09/18 08:00 99.5 F 74 20 06/09/18 07:27 74 16 06/09/18 07:24 74 16 BP BP Pulse Ox Pulse Ox Pulse Ox 06/09/18 15:49 120/66 93 L 06/09/18 15:01 92 L 06/09/18 11:54 144/96 H 93 L 06/09/18 11:09 96 92 L 06/09/18 10:47 94 L 06/09/18 08:17 06/09/18 08:00 124/72 92 L 06/09/18 07:27 91 L 06/09/18 07:24 91 L Weight Weight 333 lb 11.2 oz I&O: 06/08/18 06/09/18 06/10/18 06:59 06:59 06:59 Intake Total 200 680 Output Total 300 400 Balance -100 280 Result Diagrams: 06/08/18 04:32 06/08/18 04:32 Additional Labs: Microbiology 06/03/18 17:06 Nasal swab Influenza Types A,B Direct EIA - Final Laboratory Tests 12/24/17 06/03/18 06/06/18 09:32 11:42 20:25 Magnesium 1.9 Ferritin B-Natriuretic Peptide 253.0 H 617.5 H 06/07/18 05:25 Magnesium Ferritin 80.78 B-Natriuretic Peptide EKG Reviewed by me: Yes (Tele - SR) Phys Exam - Physical Examination Constitutional: NAD smiling HEENT: PERRLA, sclera anicteric, oral pharynx no lesions Neck: no nodes, no JVD, supple, full ROM few scattered coarse sounds S1, S2 Cardiovascular: RRR, no significant murmur, no rub, gallop Gastrointestinal: soft, non-tender, no distention, positive bowel sounds Musculoskeletal: pulses present, edema present Neurological: normal sensation, moves all 4 limbs Psychiatric: normal affect, A&O x 3 Skin: normal turgor, cap refill <2 seconds Dx/Plan (1) Acute bronchitis Code(s): J20.9 - ACUTE BRONCHITIS, UNSPECIFIED Status: Acute Comment: Continue Levaquin, Duonebs, Prednisone, Pulmicort (2) Acute respiratory failure with hypoxia Code(s): J96.01 - ACUTE RESPIRATORY FAILURE WITH HYPOXIA Status: Acute Comment: O2 supplementation to maintain sats > 90%, weaned off O2 support (3) Acute on chronic diastolic (congestive) heart failure Code(s): I50.33 - ACUTE ON CHRONIC DIASTOLIC (CONGESTIVE) HEART FAILURE Status : Acute Comment: EF 50-55%, convert to Lasix 40mg po daily, 2L/24h fluid restriction (4) HTN (hypertension) Code(s): I10 - ESSENTIAL (PRIMARY) HYPERTENSION Status: Chronic Qualifiers: Hypertension type: essential hypertension Qualified Code(s): I10 - Essential (primary) hypertension Comment: Continue Carvedilol (5) Morbid obesity Code(s): E66.01 - MORBID (SEVERE) OBESITY DUE TO EXCESS CALORIES Status: Chronic (6) Chronic atrial fibrillation Code(s): I48.2 - CHRONIC ATRIAL FIBRILLATION Status: Chronic Comment: Continue Coreg, Tambocor, converted back to SR s/p cardiac ablation - Plan plan discussed w/ family, continue antibiotics, PT/OT, criminal justice social worker, respiratory therapy, out of bed/ambulate, DVT proph w/SCDs Stable overall -: Continue pulmonary supportive mgmt -: Continue Eliquis 5mg BID -: Change Lasix 40mg po daily -: D/C Pepcid IV * OOB/ambulate * Home in am
[2018-06-09] MEDS: Atorvastatin Calcium 10 MG TAB PO SCH (20:26)
[2018-06-10] MEDS: Guaifenesin DM 100-10/5 ML UDCUP PO SCH ×2 (01:02→05:58)
[2018-06-10 06:30] LABS: Hemoglobin 13.7 g/dL (12.0-16.0); Platelet Count 129 thou/uL (130-400)
[2018-06-10] MEDS: Budesonide 0.5 MG/2 ML NEB INH SCH (07:26)
[2018-06-10] MEDS ORDERED: Furosemide 40 MG TAB PO SCH (07:30)
[2018-06-10] MEDS ORDERED: predniSONE 5 MG TAB PO SCH (08:00)
[2018-06-10 08:43] VITALS: TEMP 98.2
[2018-06-10] MEDS: hydrALAZINE 25 MG TAB PO SCH (09:05)
[2018-06-10] MEDS: predniSONE 20 MG TAB PO SCH (09:05)
[2018-06-10] MEDS: Apixaban 5 MG TAB PO SCH (09:06)
[2018-06-10] MEDS: Carvedilol 25 MG TAB PO SCH (09:06)
[2018-06-10] MEDS: Flecainide 50 MG TAB PO SCH (09:07)
[2018-06-10] MEDS: guaiFENesin ER 600 MG TAB PO SCH (09:07)
[2018-06-10] MEDS: Allopurinol 300 MG TAB PO SCH (09:07)
[2018-06-10] MEDS: Famotidine 20 MG TAB PO SCH (09:08)
--- NOTE | 2018-06-10 11:13 | DIS ---
DATE OF ADMISSION: 06/03/2018 DATE OF DISCHARGE: 06/10/2018 DISCHARGE DIAGNOSES: 1. Acute bronchitis, improved. 2. Acute hypoxic respiratory failure, multifactorial, resolved. 3. Acute on chronic diastolic congestive heart failure with ejection fraction of 50% to 55%. 4. Atrial fibrillation with variable rate, status post cardioversion and conversion to sinus mechanism. 5. Chronic anticoagulation with Eliquis. 6. Hypertension, stable. 7. Morbid obesity. CONSULTATIONS: Dr. Ramirez with Cardiology Service. PERTINENT LAB AND X-RAY FINDINGS: Magnesium level 1.9. Ferritin 80.8. LFTs within normal limits. BNP 618. CBC showed a hemoglobin ranging between 13.7 to 14.1. Influenza A and B antigen dated 06/03/2018, negative. Portable chest x-ray dated 06/03/2018, showed cardiomegaly with pulmonary vascular congestion. CT angiogram of the chest dated 06/03/2018, showed right-sided bronchiolitis in the right upper and right lower lobe. No evidence for pulmonary embolus. 2D transthoracic echocardiogram dated 06/04/2018 showed ejection fraction 50% to 55%. Moderate left atrial enlargement. Severe tricuspid valve regurgitation. Moderate pulmonic regurgitation. HOSPITAL COURSE: The patient was initially admitted to the Telemetry unit after presenting with dyspnea with hypoxemia with O2 saturations in the 80% range on room air. The patient underwent extensive evaluation including chest imaging showing evidence of bronchitis. The patient was placed on IV Solu-Medrol, bronchodilator therapy with nebulized treatments in addition to Levaquin. The patient was slow to clinically improve and remained on oxygen supplementation for the majority of her hospital course. The patient was also noted with pulmonary edema in the context of known diastolic heart failure. The patient was placed on Lasix. The patient did diurese appropriately; however, remained short of breath and hypoxic. The patient's telemetry monitoring did show atrial fibrillation with a known history of chronic atrial fibrillation. Cardiology consultation was obtained, at which point, the patient was deemed an appropriate candidate for cardioversion. The patient underwent transesophageal echocardiogram proceeding to cardioversion with successful return of sinus mechanism. The patient was continued on Eliquis 5 mg b.i.d. in addition to flecainide. The patient remained in sinus mechanism for the remainder of the hospital course. The patient did transition off oxygen supplementation, maintaining O2 saturations greater than 90% on room air. The patient ambulated without assistance or difficulty and exhibited stable vital signs. I have examined the patient at the time of discharge and discussed followup instructions. The patient and family verbalized understanding and in agreement, and ready for discharge on 06/10/2018. DISCHARGE MEDICATIONS: 1. Allopurinol 300 mg p.o. q.a.m. 2. Enteric-coated aspirin 81 mg p.o. daily. 3. Carvedilol 25 mg p.o. b.i.d. 4. Flecainide 100 mg p.o. b.i.d. 5. Hydralazine 100 mg p.o. b.i.d. 6. Eliquis 5 mg p.o. b.i.d. 7. Lipitor 10 mg p.o. q.h.s. 8. Lasix 40 mg p.o. daily. 9. Levaquin 500 mg p.o. daily x5 days. 10. Prednisone 10 mg to take 2 tablets p.o. b.i.d. x2 days, followed by 3 tabs p.o. daily x2 days, followed by 2 tablets p.o. daily x2 days, followed by 1 tab p.o. daily x2 days. FOLLOWUP: The patient may follow up with her primary care provider, Dr. Jazz Pruett, within 7 days of discharge. The patient to follow up with Dr. Mark Ramirez, on 06/15/2018 at 2:45 p.m. The patient to follow up with Dr. Everett Curtis, to assist with setting up a sleep study on an outpatient basis. SPECIAL INSTRUCTIONS: The patient will be scheduled for outpatient cardiac rehabilitation on 06/19/2018 at 1:15 p.m. CONDITION ON DISCHARGE: Stable. ACTIVITY: Ad-camacho. DIET: Heart healthy. CODE STATUS: Full. DISPOSITION: Home on 06/10/2018. TIME SPENT: Total time preparing and coordinating discharge 36 minutes. Job ID: [id number]
[2018-06-10 12:28] VITALS: BP 118/77
--- NOTE | 2018-06-10 15:07 | PDOC.CTH ---
Cardiology Progress Note - Subjective The pt seen and examined. No overnight events. No cardiac complaints. - Objective Vital Signs Temp Pulse Pulse Pulse Resp BP BP 06/10/18 12:26 84 84 118/77 121/75 06/10/18 09:05 78 06/10/18 08:09 98.2 F 78 18 06/10/18 07:32 06/10/18 07:26 77 16 06/10/18 05:56 18 06/10/18 03:22 98 F 80 17 06/10/18 03:18 BP Pulse Ox Pulse Ox Pulse Ox 06/10/18 12:26 97 91 L 06/10/18 09:05 06/10/18 08:09 151/89 H 100 06/10/18 07:32 100 06/10/18 07:26 06/10/18 05:56 100 06/10/18 03:22 137/82 94 L 06/10/18 03:18 84 L Weight 325 lb 4.8 oz 06/09/18 06/10/18 06/11/18 06:59 06:59 06:59 Intake Total 680 727 Output Total 400 1600 Balance 280 -873 - Physical Examination General/Neuro: alert & oriented x3 Neck: no JVD present Lungs: CTA Heart: RRR Abdomen: soft Extremities: other: (1-2+ pitting BLE edema) - Telemetry Telemetry Rhythm: SR - Labs Result Diagrams: 06/10/18 04:52 06/10/18 04:52 Troponin/CKMB CK-MB (CK-2) 1.1 ng/mL (0-6.6) 06/03/18 11:42 Troponin I 0.017 ng/mL (< 0.028) 06/03/18 11:42 - Assessment/Plan 1. Acute on Chronic Diastolic HF - Stable with Lasix, Bblocker. 2. Afib - Remains in SR; on Flecainide, BBlocker, and Eliquis 3. Acute bronchitis - stable with RA 4. HTN - stable 5. Morbid obesity - weight management education given to the pt and family MAR reviewed * From Cardiac standpoint, the pt is stable to d/c home. The pt will f/u with Dr Ramirez on Tuesday. Review of Systems - Review of Systems Constitutional: reports: no symptoms reported EENTM: reports: no symptoms reported Respiratory: reports: no symptoms reported Cardiac (ROS): reports: no symptoms reported ABD/GI: reports: no symptoms reported : reports: no symptoms reported Musculoskeletal: reports: no symptoms reported
[2018-06-13] MEDS ORDERED: predniSONE 5 MG TAB PO SCH (08:00)
== END 2018-06-10 11:14 | disposition home or self-care (01) | DRG 291 ==
LOC: ERS 10:28 → 2NO 17:41
PROVIDERS: ADMIT Internal Medicine; ATTEND Internal Medicine
PROC: 5A2204Z Restoration of Cardiac Rhythm, Single (ICD-10-PCS; principal; 2018-06-08)
PROC: B246ZZ4 Ultrasonography of Right and Left Heart, Transesophageal (ICD-10-PCS; 2018-06-08)
DX: I11.0 Hypertensive heart disease with heart failure (principal); J96.01 Acute respiratory failure with hypoxia; Z68.44 Body mass index [BMI] 60.0-69.9, adult; I48.92 Unspecified atrial flutter; I50.33 Acute on chronic diastolic (congestive) heart failure; J20.9 Acute bronchitis, unspecified; M19.90 Unspecified osteoarthritis, unspecified site; I48.0 Paroxysmal atrial fibrillation; E66.01 Morbid (severe) obesity due to excess calories; I07.1 Rheumatic tricuspid insufficiency; I37.1 Nonrheumatic pulmonary valve insufficiency; Z88.0 Allergy status to penicillin; Z88.8 Allergy status to other drugs, medicaments and biological substances
CPT/HCPCS: 36415; 36416; 71046; 71275; 80048; 80053; 82553; 82565; 82728; 83735; 83880; 84484; 85014; 85018; 85025; 85049; 87804; 90471; 90686; 92960; 93005; 93010; 93306; 93312; 93798; 94640; 94760; 96365; 96375; G0008; J1650; J1940; J1956; J2704; J2930; J7050; J7506; J7620; J7626; S0028

== ENCOUNTER 2018-06-11 06:18 | Observation (INO) | payer MEDICARE ==
[2018-06-11] MEDS ORDERED: Albuterol Sulfate 2.5 mg/0.5 ml Neb ONE ×2 (07:13)
[2018-06-11 07:22] LABS: #Lymphocytes 0.4 thou/uL (1.20-3.40); #Monocytes 0.2 thou/uL (0.11-0.59); #Neutrophils 4.3 thou/uL (1.40-6.50); %Eosinophils 0.2 % (0.0-10.0); %Lymphocytes 7.7 % (21.0-51.0); %Monocytes 4.5 % (0.0-10.0); %Neutrophils 87.7 % (42.0-75.0); Hemoglobin 14.5 g/dL (12.0-16.0); Mean Corpuscular HGB CONC 30.3 g/dL (32.0-36.0); Mean Corpuscular Hemoglobin 27.8 pg (27.0-31.0); Mean Corpuscular Volume 91.8 fL (78.0-98.0); Mean Platelet Volume 9.7 fL (7.4-10.4); Platelet Count 135 thou/uL (130-400); RBC Distribution Width 15.4 % (11.5-14.5); Red Blood Cell (RBC) Count 5.23 mill/uL (4.20-5.40); White Blood Cell (WBC) Count 4.9 thou/uL (4.8-10.8)
[2018-06-11 07:29] LABS: ALT (SGPT) 34 U/L (8-55); AST (SGOT) 22 U/L (5-34); Albumin 3.4 g/dL (3.5-5.0); Alkaline Phosphatase 47 U/L (40-150); BUN (Urea Nitrogen) 16 mg/dL (9.8-20.1); Calc. Creatinine Clearance 0 mL/min (70-130); Calcium 9.6 mg/dL (7.8-10.44); Estimated GFR-MDRD 87; Globulin 2.8 g/dL (2.4-3.5); Glucose 137 mg/dL (70-105); Protein, Total 6.2 g/dL (6.0-8.3)
[2018-06-11 07:38] LABS: Anion Gap 14 mmol/L (10-20); Chloride 91 mmol/L (98-107); Potassium 3.8 mmol/L (3.5-5.1); Sodium 143 mmol/L (136-145)
--- NOTE | 2018-06-11 07:40 | RAD ---
PORTABLE CHEST: DATE: 06/11/2018. PROVIDED CLINICAL HISTORY: Bronchitis and shortness of breath. FINDINGS: Comparison is made with the study dated 06/03/2018. Evaluation is limited by patient body habitus. C ardiac silhouette remains prominently enlarged. Prominence of the pulmonary vasculature and pulmonar y interstitium are redemonstrated. No focal consolidation, pleural fluid, or pneumothorax apparent. IMPRESSION: Cardiomegaly and findings suggesting congestive failure. POS: [facility]
[2018-06-11] MEDS ORDERED: Water For Inject, Bacteriostat 30 ML ONE (07:41)
[2018-06-11] MEDS ORDERED: methylPREDNISolone Sod Succ/PF 125 MG/2 ML VIAL ONE (07:41)
[2018-06-11 07:45] LABS: Carbon Dioxide 42 mmol/L (22-29)
[2018-06-11 07:47] LABS: CKMB 0.8 ng/mL (0-6.6)
[2018-06-11] MEDS ORDERED: Ondansetron ODT 4 MG TAB SL PRN (09:00)
[2018-06-11] MEDS ORDERED: Acetaminophen 325 MG TAB PO PRN (09:00)
[2018-06-11] MEDS ORDERED: Ondansetron PF 4 MG/2 ML Vial IVP PRN ×2 (09:00→14:16)
[2018-06-11] MEDS ORDERED: Furosemide 40 MG/4 ML VIAL ONE (09:19)
[2018-06-11] MEDS ORDERED: Nitroglycerin 2% Ointment 1 INCH/1 GM Packet ONE (09:45)
[2018-06-11 10:41] VITALS: BMI 62.6
[2018-06-11 10:45] LABS: Troponin I 0.038 ng/mL (< 0.028)
[2018-06-11 12:45] LABS: Troponin I 0.049 ng/mL (< 0.028)
[2018-06-11] MEDS ORDERED: Ondansetron ODT 4 MG TAB PO PRN (14:16)
[2018-06-11] MEDS ORDERED: Acetaminophen 500 MG TAB PO PRN (14:16)
[2018-06-11] MEDS ORDERED: hydrALAZINE 20 MG/ML VIAL SLOW IVP PRN (14:16)
[2018-06-11] MEDS ORDERED: Benzonatate 100 MG CAP PO PRN (14:16)
[2018-06-11] MEDS ORDERED: predniSONE 20 MG TAB PO SCH (14:30)
[2018-06-11] MEDS: Carvedilol 25 MG TAB PO SCH (20:15)
[2018-06-11] MEDS: Flecainide 50 MG TAB PO SCH (20:15)
[2018-06-11] MEDS: Apixaban 5 MG TAB PO SCH (20:15)
[2018-06-11] MEDS: hydrALAZINE 25 MG TAB PO SCH (20:15)
[2018-06-11] MEDS: Famotidine 20 MG TAB PO SCH (20:24)
--- NOTE | 2018-06-11 20:46 | HP ---
PRIMARY CARE PROVIDER: Dr. Jazz Pruett. CHIEF COMPLAINT: Shortness of breath. HISTORY OF PRESENT ILLNESS: This is a 52-year-old female, who was discharged on 06/10/2018 after recent admission for acute bronchitis as well as acute hypoxic respiratory failure, multifactorial in nature. The patient was discharged home on prednisone as well as Levaquin, however, did not qualify for home oxygen and maintained O2 saturations in the low 90% range on room air prior to discharge 06/10/2018. The patient states she awoke approximately 3:00 a.m. with increased shortness of breath and was unable to catch her breath. The patient presented to the emergency room and was noted with O2 saturations in the 85% range on room air. The patient denied any associated chest pain, jaw or left arm discomfort. The patient states she has been compliant with the medication regimen she was given at the time of discharge 06/10/2018. In the emergency room, the patient underwent chest imaging showing prominent pulmonary vasculature without acute infiltrate. The patient received transdermal nitroglycerin, aspirin 325 mg, Lasix 40 mg x1 dose, Solu-Medrol and DuoNebs. The patient was also placed on oxygen supplementation and transferred to the observation unit for evaluation. PAST MEDICAL HISTORY: 1. Acute bronchitis with recent admission and discharge on 06/10/2018. 2. Furqd-qu-pxqxrub hypoxic respiratory failure. 3. Xsbej-nd-hvfxmmy diastolic congestive heart failure with preserved ejection fraction of 50% to 55%. 4. Atrial fibrillation with variable rate, status post cardioversion with conversion to sinus mechanism. 5. Chronic anticoagulation with Eliquis. 6. Hypertension. 7. Morbid obesity. 8. Question of obstructive sleep apnea. PAST SURGICAL HISTORY: 1. Status post hysterectomy. 2. Status post cardioversion for atrial fibrillation. CURRENT MEDICATIONS: 1. Allopurinol 300 mg p.o. daily. 2. Enteric-coated aspirin 81 mg p.o. daily. 3. Carvedilol 25 mg p.o. b.i.d. 4. Flecainide 100 mg p.o. b.i.d. 5. Hydralazine 100 mg p.o. b.i.d. 6. Eliquis 5 mg p.o. b.i.d. 7. Lipitor 10 mg p.o. at bedtime. 8. Lasix 40 mg p.o. daily. 9. Levaquin 500 mg p.o. daily. 10. Prednisone. ALLERGIES: DULOXETINE, LISINOPRIL, AND NEBIVOLOL AND PENICILLIN. FAMILY HISTORY: Positive for hypertension. SOCIAL HISTORY: The patient is , accompanied by her in the hospital. Resides in [place], [place]. No current alcohol, tobacco, or illicit drug use. REVIEW OF SYSTEMS: CONSTITUTIONAL: Negative for weight loss or gain, ability to conduct usual activities. SKIN: Negative for rash, itching. EYES: Negative for double vision, pain. ENT/MOUTH: Negative for nose bleeding, neck stiffness, pain, tenderness. CARDIOVASCULAR: Negative for palpitations, dyspnea on exertion, orthopnea. RESPIRATORY: Negative for shortness of breath, wheezing, cough, hemoptysis, fever or night sweats. GASTROINTESTINAL: Negative for poor appetite, abdominal pain, heartburn, nausea, vomiting, constipation, or diarrhea. GENITOURINARY: Negative for urgency, frequency, dysuria, nocturia. MUSCULOSKELETAL: Negative for pain, swelling. NEUROLOGIC/PSYCHIATRIC: Negative for anxiety, depression. ALLERGY/IMMUNOLOGIC: Negative for skin rash, bleeding tendency. Otherwise, negative except as stated per HPI. PHYSICAL EXAMINATION: VITAL SIGNS: Currently, blood pressure 155/93, pulse 75, respiratory rate 24, temperature 98.2 degrees Fahrenheit, and O2 saturation 98% on 2 L/minute by nasal cannula. GENERAL APPEARANCE: This is a 52-year-old female, alert and oriented x3, pleasant, and conversant, in no acute distress. HEENT: Pupils are equal, round, reactive to light and accommodation. Extraocular muscles are intact. No scleral icterus. No conjunctival injection. Nares patent. OP is clear. Teeth in good repair. NECK: Supple. No cervical adenopathy. No thyromegaly. No carotid bruits. No JVD appreciated. Cervical spine with full active and passive range of motion. No meningeal signs appreciated. CHEST: Diminished breath sounds in the bases bilaterally. No crackles noted. CARDIOVASCULAR: S1 and S2 with a 2/6 systolic ejection murmur in the left upper sternal border. ABDOMEN: Obese, soft, nontender, and nondistended. Bowel sounds are positive in all 4 quadrants. There is no hepatosplenomegaly. No abdominal bruits. No rebound or guarding appreciated. EXTREMITIES: Warm and dry with fair turgor. Mild nonpitting edema bilaterally. Pulses are palpable distally at the dorsalis pedis, posterior tibial, and popliteal arteries bilaterally. Capillary refill less than 2 seconds. NEUROLOGIC: Cranial nerves 2 through 12 are grossly intact. No focal or lateralizing signs appreciated. PERTINENT LAB AND X-RAY FINDINGS: Sodium 143, potassium 3.8, chloride 91, CO2 of 42, BUN 16, creatinine 0.83, glucose 137, calcium 9.6. LFTs within normal limits. Troponin I ranged between 0.036 to 0.049. BNP 272, previously noted 618 on 06/03/2018. CBC showed a white blood cell count of 4.9, hemoglobin 14.5, hematocrit 48, platelet count 135 with 88% neutrophils. Portable chest x-ray dated 06/11/2018 by my review shows cardiomegaly with prominent pulmonary markings. EKG dated 06/11/2018 by my interpretation shows sinus mechanism with heart rates in the 70s. Attenuated R-wave is noted in the precordial leads. Normal axis. No acute ST-T wave changes appreciated. ASSESSMENT AND PLAN: 1. Gbkck-cw-qeovqlq hypoxic respiratory failure. Suspect multifactorial given the patient's recent acute bronchitis. We will continue general pulmonary supportive management. Prednisone 40 mg daily. DuoNeb q.4 hours while awake. Reassess for home oxygen. 2. Acute bronchitis. Slow to clinically improve. Resume prednisone 40 mg p.o. daily. Levaquin 500 mg p.o. daily. DuoNeb q.4 hours p.r.n. 3. Atrial fibrillation, status post cardioversion with return to sinus mechanism, stable currently. Sinus mechanism noted on EKG. Continue flecainide 100 mg p.o. b.i.d. and Eliquis 5 mg p.o. b.i.d. 4. Elevated troponin I. Suspect demand ischemia in the context of acute presentation of respiratory failure. Continue general supportive management as outlined in #1. 5. Chronic anticoagulation. Continue Eliquis 5 mg p.o. b.i.d. for atrial fibrillation. 6. Prophylaxis. Sequential compression device while in bed. Protonix 40 mg p.o. daily. 7. Code status is full. Surrogate medical decision maker is the patient's spouse. Job ID: [id number]
[2018-06-11 20:58] LABS: Hemoglobin 14.6 g/dL (12.0-16.0); Platelet Count 132 thou/uL (130-400)
[2018-06-11] MEDS ORDERED: Atorvastatin Calcium 10 MG TAB PO SCH (21:00)
[2018-06-12 04:56] LABS: Band 2 % (5-11); Hemoglobin 14.5 g/dL (12.0-16.0); Lymphocytes 4 % (21-51); MDiff Complete? YES; Mean Corpuscular HGB CONC 30.7 g/dL (32.0-36.0); Mean Corpuscular Hemoglobin 27.6 pg (27.0-31.0); Mean Corpuscular Volume 89.7 fL (78.0-98.0); Mean Platelet Volume 10.3 fL (7.4-10.4); Monocytes 7 % (0-10); Neutrophil 87 % (42-75); PLT Morphology Comment Appears Decreased; Platelet Count 114 thou/uL (130-400); RBC Distribution Width 15.4 % (11.5-14.5); Red Blood Cell (RBC) Count 5.28 mill/uL (4.20-5.40)
[2018-06-12 05:26] LABS: BUN (Urea Nitrogen) 17 mg/dL (9.8-20.1); Calc. Creatinine Clearance 184 mL/min (70-130); Calcium 9.3 mg/dL (7.8-10.44); Estimated GFR-MDRD 87; Glucose 160 mg/dL (70-105)
[2018-06-12 05:36] LABS: Anion Gap 17 mmol/L (10-20); Carbon Dioxide 37 mmol/L (22-29); Chloride 91 mmol/L (98-107); Potassium 4.3 mmol/L (3.5-5.1); Sodium 141 mmol/L (136-145)
[2018-06-12] MEDS ORDERED: Furosemide 40 MG TAB PO SCH (07:30)
[2018-06-12] MEDS ORDERED: predniSONE 20 MG TAB PO SCH (08:00)
[2018-06-12] MEDS: hydrALAZINE 25 MG TAB PO SCH (08:09)
[2018-06-12] MEDS: Apixaban 5 MG TAB PO SCH (08:09)
[2018-06-12] MEDS: Famotidine 20 MG TAB PO SCH (08:09)
[2018-06-12] MEDS: Flecainide 50 MG TAB PO SCH (08:10)
[2018-06-12] MEDS: Carvedilol 25 MG TAB PO SCH (08:10)
[2018-06-12 15:51] VITALS: BP 126/96; TEMP 98.5
--- NOTE | 2018-06-12 16:31 | DIS ---
DATE OF ADMISSION: 06/11/2018 DATE OF DISCHARGE: 06/12/2018 DISCHARGE DIAGNOSES: 1. Acute on chronic hypoxic respiratory failure, multifactorial including acute bronchitis. 2. Acute bronchitis. 3. Atrial fibrillation, status post cardioversion with current sinus mechanism. 4. Chronic anticoagulation with Eliquis. 5. Elevated troponin I secondary to demand ischemia. 6. Morbid obesity. 7. Obstructive sleep apnea suspected. CONSULTATIONS: None. PERTINENT LABORATORY AND DIAGNOSTIC DATA: Carbon dioxide level ranged between 37 to 42. Troponin I ranged between 0.036 to 0.049. BNP 272, previously noted 618 on 06/03/2018. Portable chest x-ray, dated 06/11/2018, showed cardiomegaly and pulmonary vascular prominence. HOSPITAL COURSE: The patient was observed after presenting with increasing shortness of breath and hypoxemia in the context of known acute bronchitis and suspected obstructive sleep apnea. The patient was placed on oxygen supplementation and given bronchodilator therapy with overall improvement and symptomatology. The patient was assessed for home oxygen needs and noted to be 86% on room air at rest. The patient continued her regular regimen to include prednisone and Levaquin as well as DuoNeb for general pulmonary supportive treatment. Vital signs remained stable throughout the hospital course and telemetry monitoring showed a consistent sinus mechanism. I have examined the patient at the time of discharge and discussed followup instructions. The patient overall clinically stable and ready for discharge on 06/12/2018. DISCHARGE MEDICATIONS: 1. Enteric-coated aspirin 81 mg p.o. daily. 2. Carvedilol 25 mg p.o. b.i.d. 3. Tambocor 100 mg p.o. b.i.d. 4. Allopurinol 300 mg p.o. q.a.m. 5. Hydralazine 100 mg p.o. b.i.d. 6. Prednisone 40 mg p.o. daily x2 days, followed by 20 mg p.o. daily x2 days, followed by 10 mg p.o. daily x2 days. 7. Eliquis 5 mg p.o. b.i.d. 8. Lipitor 10 mg p.o. at bedtime. 9. Lasix 40 mg p.o. daily. 10. DuoNeb 3 mL nebulized q.4 hours p.r.n. 11. Levaquin 500 mg p.o. daily. FOLLOWUP: The patient may follow up with Dr. Jazz Pruett within 7 days of discharge. The patient will follow up with Dr. Mark Ramirez with [facility] on 06/15/2018 at 3:45 p.m. CONDITION ON DISCHARGE: Stable. ACTIVITY: Ad camacho. SPECIAL INSTRUCTIONS: Home oxygen at 2 L/minute via nasal cannula. DIET: Heart healthy. CODE STATUS: Full. DISPOSITION: Home on 06/12/2018. Job ID: [id number]
--- NOTE | 2018-06-17 13:26 | EKG ---
Test Reason : Blood Pressure : / mmHG Vent. Rate : 078 BPM Atrial Rate : 078 BPM P-R Int : 150 ms QRS Dur : 090 ms QT Int : 416 ms P-R-T Axes : 049 048 024 degrees QTc Int : 474 ms Normal sinus rhythm Possible Left atrial enlargement Cannot rule out Anterior infarct , age undetermined Abnormal ECG Confirmed by KISHAN MOORE DO ([id number]), food editor KAY KOCH ([id number]) on 06/17/2018 1:25:55 PM Referred By: Confirmed By:KISHAN MOORE DO
== END 2018-06-12 18:26 | disposition home or self-care (01) ==
LOC: ERS 06:18 → 2SW 09:47
PROVIDERS: ADMIT Family Medicine; ATTEND Family Medicine
DX: J96.21 Acute and chronic respiratory failure with hypoxia (principal); J20.9 Acute bronchitis, unspecified; I48.91 Unspecified atrial fibrillation; R79.89 Other specified abnormal findings of blood chemistry; G47.33 Obstructive sleep apnea (adult) (pediatric); I11.0 Hypertensive heart disease with heart failure; I50.33 Acute on chronic diastolic (congestive) heart failure; E66.01 Morbid (severe) obesity due to excess calories; Z68.44 Body mass index [BMI] 60.0-69.9, adult; Z79.01 Long term (current) use of anticoagulants; Z79.52 Long term (current) use of systemic steroids; Z79.82 Long term (current) use of aspirin; Z79.899 Other long term (current) drug therapy; Z88.0 Allergy status to penicillin; Z88.8 Allergy status to other drugs, medicaments and biological substances; Z91.018 Allergy to other foods
CPT/HCPCS: 71045; 80048; 80053; 82553; 82565; 83880; 84484 ×2; 85007; 85014; 85018; 85025; 85027; 85049; 93005; 94640 ×3; 94760; 96374; 96375; 97139 ×2; 99285; G0378 ×2; G8978; G8979; G8980; 36415; J1940; J2930; J7506; J7611; J7620

== ENCOUNTER 2018-06-25 21:04 | Emergency (ER) | payer MEDICARE | END 2018-06-25 22:29 | disposition home or self-care (01) | LOC: ERS 21:04 | DX: B36.0 Pityriasis versicolor (principal); I48.91 Unspecified atrial fibrillation; I10 Essential (primary) hypertension; Z79.82 Long term (current) use of aspirin; Z79.52 Long term (current) use of systemic steroids; Z79.899 Other long term (current) drug therapy | CPT/HCPCS: 99282 ==

== ENCOUNTER 2018-07-05 20:30 | Outpatient (CLI) | payer MEDICARE | END 2018-07-05 20:31 | disposition home or self-care (01) | LOC: SLEEPLAB 20:30 | PROVIDERS: ATTEND Internal Medicine Cardiovascular Disease | DX: G47.33 Obstructive sleep apnea (adult) (pediatric) (principal); I10 Essential (primary) hypertension; R53.83 Other fatigue; E66.9 Obesity, unspecified; R09.02 Hypoxemia | CPT/HCPCS: 95811 ==

== ENCOUNTER 2018-07-08 10:41 | Observation (INO) | payer MEDICARE ==
[2018-07-08 11:09] LABS: #Basophils 0.1 thou/uL (0.0-0.2); #Eosinphils 0.1 thou/uL (0.0-0.7); #Lymphocytes 0.9 thou/uL (1.20-3.40); #Monocytes 0.4 thou/uL (0.11-0.59); %Basophils 1.5 % (0.0-1.0); %Eosinophils 2.3 % (0.0-10.0); %Lymphocytes 20.9 % (21.0-51.0); %Monocytes 8.7 % (0.0-10.0); %Neutrophils 66.6 % (42.0-75.0); Hemoglobin 12.9 g/dL (12.0-16.0); Mean Corpuscular HGB CONC 31.7 g/dL (32.0-36.0); Mean Corpuscular Hemoglobin 28.7 pg (27.0-31.0); Mean Corpuscular Volume 90.6 fL (78.0-98.0); Mean Platelet Volume 8.2 fL (7.4-10.4); Platelet Count 262 thou/uL (130-400); RBC Distribution Width 17.5 % (11.5-14.5); White Blood Cell (WBC) Count 4.5 thou/uL (4.8-10.8)
[2018-07-08 11:15] LABS: INR-International Normal Ratio 1.6; PTT 40.2 SEC (22.9-36.1); Prothrombin Time 18.7 SEC (12.0-14.7)
[2018-07-08 11:33] LABS: ALT (SGPT) 22 U/L (8-55); AST (SGOT) 20 U/L (5-34); Albumin 3.5 g/dL (3.5-5.0); Alkaline Phosphatase 51 U/L (40-150); Anion Gap 14 mmol/L (10-20); BUN (Urea Nitrogen) 8 mg/dL (9.8-20.1); Bilirubin, Total 0.6 mg/dL (0.2-1.2); CK (CPK) 24 U/L (29-168); Calc. Creatinine Clearance 0 mL/min (70-130); Calcium 9.4 mg/dL (7.8-10.44); Carbon Dioxide 30 mmol/L (22-29); Chloride 100 mmol/L (98-107); Estimated GFR-MDRD 85; Globulin 3.2 g/dL (2.4-3.5); Glucose 106 mg/dL (70-105); Potassium 4.1 mmol/L (3.5-5.1); Protein, Total 6.7 g/dL (6.0-8.3); Sodium 140 mmol/L (136-145)
[2018-07-08 12:01] LABS: CKMB 0.6 ng/mL (0-6.6)
--- NOTE | 2018-07-08 12:18 | RAD ---
CHEST 1 VIEW: Date: 07/08/18 HISTORY: Dyspnea. COMPARISON: Radiograph dated 06/11/18. FINDINGS: Heart size is enlarged. Mild edema. Small effusions. Pulmonary arteries dilated. IMPRESSION: Cardiomegaly with mild edema and small effusions. POS: [facility]
[2018-07-08] MEDS ORDERED: Albuterol Sulfate 2.5 mg/0.5 ml Neb ONE (13:09)
[2018-07-08] MEDS ORDERED: Albuterol Sulfate 2.5 mg/3 ml Neb ONE (13:09)
[2018-07-08 14:42] LABS: Troponin I 0.023 ng/mL (< 0.028)
[2018-07-08] MEDS ORDERED: Furosemide 40 MG/4 ML VIAL ONE (16:54)
[2018-07-08] MEDS ORDERED: Acetaminophen 325 MG TAB PO PRN (19:26)
[2018-07-08] MEDS ORDERED: Ondansetron PF 4 MG/2 ML Vial IVP PRN ×2 (19:26→19:43)
[2018-07-08] MEDS ORDERED: Ondansetron ODT 4 MG TAB SL PRN (19:26)
[2018-07-08 19:29] VITALS: BMI 61.2
[2018-07-08] MEDS ORDERED: Acetaminophen 500 MG TAB PO PRN (19:43)
[2018-07-08] MEDS ORDERED: Diabetic Tussin 200 MG/10 ML UDCUP PO PRN (19:43)
[2018-07-08] MEDS ORDERED: Ondansetron ODT 4 MG TAB PO PRN (19:43)
[2018-07-08] MEDS ORDERED: Benzonatate 100 MG CAP PO PRN (19:43)
[2018-07-08] MEDS ORDERED: hydrALAZINE 20 MG/ML VIAL SLOW IVP PRN (19:43)
[2018-07-08] MEDS ORDERED: Furosemide 20 MG/2 ML VIAL SLOW IVP SCH (20:00)
[2018-07-08] MEDS: Flecainide 50 MG TAB PO SCH (20:50)
[2018-07-08] MEDS: Apixaban 5 MG TAB PO SCH (20:50)
[2018-07-08] MEDS: Carvedilol 25 MG TAB PO SCH (20:51)
[2018-07-08] MEDS: Famotidine 20 MG TAB PO SCH (20:51)
[2018-07-08] MEDS: hydrALAZINE 25 MG TAB PO SCH (20:51)
[2018-07-08 21:09] LABS: Troponin I 0.015 ng/mL (< 0.028)
--- NOTE | 2018-07-09 00:46 | HP ---
PRIMARY CARE PROVIDER: Jazz Pruett MD CHIEF COMPLAINT: Shortness of breath and general malaise. HISTORY OF PRESENT ILLNESS: This is a 52-year-old female, who presents to [facility] Emergency Department complaining of 1 to 2 day history of increasing fatigue, shortness of breath, general malaise and weakness. The patient with recent admission and discharge from 06/11/2018 through 06/12/2018 due to [id number] hypoxic respiratory failure, multifactorial, including acute bronchitis. The patient with chronic oxygen supplementation at 2 L/minute by nasal cannula. She states she continues to use her oxygen, however, does not feel like she is getting enough air. The patient states she underwent a sleep study on 07/05/2018, however, has not received the results and is not currently on a CPAP or BiPAP machine currently. The patient states she will follow up with her llama farmer in early August of 2018. The patient denied any specific increasing swelling, edema, fever, or chills. The patient states she has been compliant with her chronic medication regimen. The patient admits to increased fatigue, general weakness, and decreased stamina. The patient states she has used her bronchodilator therapy including DuoNebs without specific worsening or improvement in her overall respiratory status. In the emergency room, the patient underwent general evaluation including chest imaging showing mild edema without an acute infiltrate. The patient received Lasix 40 mg x1 dose, albuterol sulfate and DuoNeb therapy. The patient was referred to the hospitalist service for evaluation. PAST MEDICAL HISTORY: 1. Chronic hypoxic respiratory failure, on chronic oxygen supplementation at 2 to 3 L/minute by nasal cannula. 2. Status post acute bronchitis. 3. Atrial fibrillation, status post cardioversion with return to sinus mechanism. 4. Chronic anticoagulation with Eliquis. 5. Obstructive sleep apnea. 6. Morbid obesity. 7. Snmql-go-kdbizib diastolic heart failure with preserved ejection fraction 50% to 55%. PAST SURGICAL HISTORY: 1. Status post hysterectomy. 2. Status post cardioversion for atrial fibrillation. CURRENT MEDICATIONS: 1. Allopurinol 300 mg p.o. daily. 2. Enteric-coated aspirin 81 mg p.o. daily. 3. Carvedilol 25 mg p.o. b.i.d. 4. Flecainide 100 mg p.o. b.i.d.. 5. Hydralazine 100 mg p.o. b.i.d. 6. Eliquis 5 mg p.o. b.i.d. 7. Lipitor 10 mg p.o. at bedtime. 8. Lasix 40 mg p.o. daily. ALLERGIES: DULOXETINE, LISINOPRIL, NEBIVOLOL, AND PENICILLIN. FAMILY HISTORY: Positive for hypertension. SOCIAL HISTORY: The patient is , accompanied by her in the emergency room. Resides in [place], [place]. No current alcohol, tobacco, or illicit drug use. REVIEW OF SYSTEMS: CONSTITUTIONAL: Negative for weight loss or gain, ability to conduct usual activities. SKIN: Negative for rash, itching. EYES: Negative for double vision, pain. ENT/MOUTH: Negative for nose bleeding, neck stiffness, pain, tenderness. CARDIOVASCULAR: Negative for palpitations, dyspnea on exertion, orthopnea. RESPIRATORY: Negative for wheezing, cough, hemoptysis, fever or night sweats. GASTROINTESTINAL: Negative for poor appetite, abdominal pain, heartburn, nausea, vomiting, constipation, or diarrhea. GENITOURINARY: Negative for urgency, frequency, dysuria, nocturia. MUSCULOSKELETAL: Negative for pain, swelling. NEUROLOGIC/PSYCHIATRIC: Negative for anxiety, depression. ALLERGY/IMMUNOLOGIC: Negative for skin rash, bleeding tendency. Otherwise, negative except as stated per HPI. PHYSICAL EXAMINATION: VITAL SIGNS: On admission, blood pressure 116/66, pulse 77, respiratory rate 15, temperature 99 degrees Fahrenheit, O2 saturation 97% on 2 L/minute by nasal cannula. GENERAL APPEARANCE: This is a 52-year-old female, alert and oriented x3, pleasant, conversant, in no acute distress. HEENT: Pupils are equal, round, reactive to light and accommodation. Extraocular muscles are intact. No scleral icterus. No conjunctival injection. Nares patent. OP is clear. Teeth in good repair. NECK: Supple. No cervical adenopathy. No thyromegaly. No carotid bruits. No JVD appreciated. Cervical spine with full active and passive range of motion. No meningeal signs noted. CHEST: Diminished breath sounds in the bases bilaterally. CARDIOVASCULAR: S1 and S2 without noted murmur, rub, or gallop. ABDOMEN: Obese, soft, nontender, and nondistended. Bowel sounds are positive in all four quadrants. There is no hepatosplenomegaly. No abdominal bruits. No rebound or guarding appreciated. EXTREMITIES: Warm and dry with fair turgor. Pitting edema to the mid shins bilaterally. Chronic venous stasis changes bilaterally. Pulses palpable distally at the dorsalis pedis, posterior tibial, and popliteal arteries bilaterally. Capillary refill less than 2 seconds. NEUROLOGIC: Cranial nerves 2 through 12 are grossly intact. No focal or lateralizing signs appreciated. PERTINENT LABORATORY FINDINGS: Sodium 140, potassium 4.1, chloride 100, CO2 of 30, BUN 8, creatinine 0.84, glucose 106, and calcium 9.4. LFTs within normal limits. Troponin I ranged between 0.020 and 0.029. BNP 494, previously noted 272, 06/11/2018. CBC showed a white blood cell count of 4.5, hemoglobin 13, hematocrit 41, platelet count 262 with 67% neutrophils. PT 18.7, INR 1.6, and PTT 40.2. DIAGNOSTIC STUDIES: Portable chest x-ray dated 07/08/2018 showed cardiomegaly with mild edema. EKG dated 07/08/2018 by my interpretation shows a sinus mechanism with heart rates in the 70s. Attenuated R-waves noted in the precordial leads. Normal axis. No acute ST-T wave changes appreciated. ASSESSMENT/PLAN: 1. Dyspnea. The patient will be observed on the telemetry unit. Suspect multifactorial dyspnea in addition to chronic hypoxic respiratory failure on chronic oxygen supplementation at 2 L/minute by nasal cannula. We will continue general supportive management and monitor clinical response. 2. Chronic hypoxic respiratory failure. Continue oxygen supplementation to maintain O2 saturations greater than equal to 90%. DuoNeb q.4 hours p.r.n. 3. Chronic diastolic congestive heart failure with preserved ejection fraction of 50% to 55%. Minimal edema of bilateral lung paige. Resume Lasix 40 mg p.o. daily. Daily weights and monitor urine output. 4. Obstructive sleep apnea. Currently undergoing evaluation for a home BiPAP/CPAP. Continue oxygen supplementation and monitor respiratory status. We will follow up as an outpatient with Pulmonology Service. 5. Chronic anticoagulation. Continue Eliquis 5 mg p.o. b.i.d. Currently in sinus rhythm. 6. Prophylaxis. SCDs while in bed. Pepcid 20 mg p.o. b.i.d. PT evaluation in the a.m. 7. Code status: Full. Surrogate medical decision maker is the patient's spouse. Job ID: [id number]
[2018-07-09] MEDS ORDERED: Furosemide 40 MG/4 ML VIAL SLOW IVP SCH (06:00)
[2018-07-09 07:10] LABS: Hemoglobin 12.3 g/dL (12.0-16.0); Mean Corpuscular HGB CONC 31.3 g/dL (32.0-36.0); Mean Corpuscular Hemoglobin 28.6 pg (27.0-31.0); Mean Corpuscular Volume 91.6 fL (78.0-98.0); Platelet Count 264 thou/uL (130-400); RBC Distribution Width 17.3 % (11.5-14.5); Red Blood Cell (RBC) Count 4.31 mill/uL (4.20-5.40); White Blood Cell (WBC) Count 4.2 thou/uL (4.8-10.8)
[2018-07-09 07:11] LABS: Band 11 % (5-11); Eosinophils 4 % (0-10); Lymphocytes 14 % (21-51); MDiff Complete? YES; Monocytes 18 % (0-10); Neutrophil 53 % (42-75)
[2018-07-09 07:12] LABS: Anion Gap 12 mmol/L (10-20); BUN (Urea Nitrogen) 7 mg/dL (9.8-20.1); Calc. Creatinine Clearance 190 mL/min (70-130); Calcium 9.3 mg/dL (7.8-10.44); Carbon Dioxide 32 mmol/L (22-29); Chloride 100 mmol/L (98-107); Estimated GFR-MDRD Greater than 90; Glucose 112 mg/dL (70-105); Potassium 3.9 mmol/L (3.5-5.1); Sodium 140 mmol/L (136-145)
[2018-07-09] MEDS: hydrALAZINE 25 MG TAB PO SCH (09:18)
[2018-07-09] MEDS: Flecainide 50 MG TAB PO SCH (09:19)
[2018-07-09] MEDS: Carvedilol 25 MG TAB PO SCH (09:19)
[2018-07-09] MEDS: Famotidine 20 MG TAB PO SCH (09:19)
[2018-07-09] MEDS: Apixaban 5 MG TAB PO SCH (09:19)
[2018-07-09 12:16] VITALS: TEMP 98.5
[2018-07-09 13:57] VITALS: BP 123/62
--- NOTE | 2018-07-10 03:52 | DIS ---
DATE OF ADMISSION: 07/08/2018 DATE OF DISCHARGE: 07/09/2018 PRIMARY CARE PHYSICIAN: Dr. Jazz Pruett. CONDITION AT THE TIME OF DISCHARGE: Stable. DISCHARGE DISPOSITION: Home. DISCHARGE DIAGNOSES: 1. Mild acute on chronic diastolic congestive heart failure. 2. Acute respiratory distress secondary to #1. 3. Chronic hypoxic respiratory failure, on home oxygen. 4. Chronic atrial fibrillation, currently in sinus rhythm, on chronic anticoagulation with Eliquis. 5. Obstructive sleep apnea. 6. Morbid obesity. 7. Chronic diastolic congestive heart failure. DISCHARGE MEDICATIONS: Remain the same as admission medication. No changes were made. Please see H and P for further details regarding home medications. IN-HOUSE CONSULTATION: None. PROCEDURES DONE: Chest x-ray upon presentation, which showed cardiomegaly with mild edema. HISTORY OF PRESENTING ILLNESS: Ms. Sierra is a very pleasant 52-year-old female with past medical history of atrial fibrillation status post cardioversion earlier last year as well as history of chronic diastolic congestive heart failure and chronic hypoxic respiratory failure likely due to obstructive sleep apnea, who presented to the ER with complaints of worsening shortness of breath. She recently had vawp-md-yuea two admissions late last year, most recent being 06/11/2018 through 06/12/2018 for shortness of breath. At these times, she has been diagnosed and treated for atrial fibrillation as well as acute bronchitis. She came back to the ER complaining of fatigue, weakness, decreased stamina, and shortness of breath. In the ER, her chest x-ray showed mild edema without infiltrate and she was given IV Lasix, nebulized albuterol, and was admitted to the hospital under observation status for further evaluation. Please see admission history and physical for further details. HOSPITAL COURSE: The patient did very well with IV diuresis and was back to baseline within no time. I have seen her, examined this morning, and she is feeling much better and has no complaints of shortness of breath. She is back to using her oxygen via nasal cannula at home levels. I did discuss the possibility of sleep apnea and she reported that she has an upcoming appointment with Dr. Curtis. I encouraged her to undergo a sleep study and possibly be fitted for a CPAP as this seems to be the root of her problems. I educated her about the risk of right-sided heart failure with untreated sleep apnea. She is very sure that she will follow up for her appointment with Pulmonary doctors. She was seen and examined this morning. PHYSICAL EXAMINATION: VITAL SIGNS: Temperature 98.5, pulse of 77, blood pressure 123/62, respirations 20, saturating 93% on 3 L nasal cannula. GENERAL: No acute distress. Awake, alert, and oriented x3. CHEST: Clear to auscultation bilaterally. HEART: Rate and rhythm regular. She will be discharged with close followup with primary care physician in 1 to 2 weeks. She is hemodynamically stable. Job ID: [id number]
--- NOTE | 2018-07-14 15:00 | EKG ---
Test Reason : SOB Blood Pressure : / mmHG Vent. Rate : 077 BPM Atrial Rate : 077 BPM P-R Int : 166 ms QRS Dur : 098 ms QT Int : 414 ms P-R-T Axes : 051 035 025 degrees QTc Int : 468 ms Normal sinus rhythm Possible Left atrial enlargement Borderline ECG Confirmed by GREG SALDIVAR M.D. ([id number]), editor sound BETSY DURAN ([id number]) on 07/14/2018 2:59:56 PM Referred By: Confirmed By:GREG SALDIVAR M.D.
== END 2018-07-09 13:29 | disposition home or self-care (01) ==
LOC: ERS 10:41 → 2SW 19:02
PROVIDERS: ADMIT Family Medicine; ATTEND Family Medicine
DX: I50.33 Acute on chronic diastolic (congestive) heart failure (principal); J96.11 Chronic respiratory failure with hypoxia; Z99.81 Dependence on supplemental oxygen; I48.2 Chronic atrial fibrillation; G47.33 Obstructive sleep apnea (adult) (pediatric); E66.01 Morbid (severe) obesity due to excess calories; Z68.44 Body mass index [BMI] 60.0-69.9, adult; Z90.710 Acquired absence of both cervix and uterus; Z88.0 Allergy status to penicillin; Z88.8 Allergy status to other drugs, medicaments and biological substances; Z79.82 Long term (current) use of aspirin; Z79.01 Long term (current) use of anticoagulants; Z79.899 Other long term (current) drug therapy; Z98.890 Other specified postprocedural states
CPT/HCPCS: 36415; 71045; 80048; 80053; 82550; 82553; 83880; 84484; 85007; 85025; 85027; 85610; 85730; 90471; 90686; 93005; 94640; 94760; G0008; J1940; J7611; J7620

== ENCOUNTER 2018-07-10 04:35 | Inpatient (IN) | payer MEDICARE ==
[2018-07-10] MEDS ORDERED: methylPREDNISolone Sod Succ/PF 125 MG/2 ML VIAL ONE (05:19)
[2018-07-10] MEDS ORDERED: Magnesium 2 GM/50 ML BAG (IN WATER) ONE (05:19)
[2018-07-10] MEDS ORDERED: Water For Inject, Bacteriostat 0 ML ONE (05:19)
[2018-07-10 05:23] LABS: #Basophils 0.1 thou/uL (0.0-0.2); #Eosinphils 0.1 thou/uL (0.0-0.7); #Lymphocytes 0.9 thou/uL (1.20-3.40); #Monocytes 0.4 thou/uL (0.11-0.59); #Neutrophils 2.8 thou/uL (1.40-6.50); %Basophils 1.3 % (0.0-1.0); %Eosinophils 1.8 % (0.0-10.0); %Lymphocytes 22.1 % (21.0-51.0); %Monocytes 8.7 % (0.0-10.0); %Neutrophils 66.2 % (42.0-75.0); Hemoglobin 12.5 g/dL (12.0-16.0); Mean Corpuscular HGB CONC 31.4 g/dL (32.0-36.0); Mean Corpuscular Hemoglobin 28.7 pg (27.0-31.0); Mean Corpuscular Volume 91.5 fL (78.0-98.0); Mean Platelet Volume 7.9 fL (7.4-10.4); Platelet Count 291 thou/uL (130-400); RBC Distribution Width 17.3 % (11.5-14.5); Red Blood Cell (RBC) Count 4.35 mill/uL (4.20-5.40); White Blood Cell (WBC) Count 4.3 thou/uL (4.8-10.8)
[2018-07-10 05:38] LABS: ALT (SGPT) 20 U/L (8-55); AST (SGOT) 19 U/L (5-34); Albumin 3.4 g/dL (3.5-5.0); Alkaline Phosphatase 50 U/L (40-150); Anion Gap 14 mmol/L (10-20); BUN (Urea Nitrogen) 8 mg/dL (9.8-20.1); Bilirubin, Total 0.6 mg/dL (0.2-1.2); Calc. Creatinine Clearance 0 mL/min (70-130); Calcium 9.6 mg/dL (7.8-10.44); Carbon Dioxide 33 mmol/L (22-29); Chloride 97 mmol/L (98-107); Estimated GFR-MDRD 88; Globulin 3.4 g/dL (2.4-3.5); Glucose 106 mg/dL (70-105); Magnesium 1.2 mg/dL (1.6-2.6); Potassium 3.7 mmol/L (3.5-5.1); Protein, Total 6.8 g/dL (6.0-8.3); Sodium 140 mmol/L (136-145)
[2018-07-10 05:51] LABS: Actual Bicarbonate (HCO3a) 39.3 mEq/L (22-28); Analyzer IN Cardio ER; Base Excess (BEa) 10.9 mEq/L (-2.0 to +3.0); Calcium, Ionized 1.21 mmol/L (1.12-1.30); Carboxyhemoglobin (COHb) 1.2 gm% (0.0-3.0); Hemoglobin (Hb) 13.3 g/dL (12.0-16.0); Potassium - ABG Lab 3.61 mmol/L (3.70-5.30); pH, Arterial 7.36 (7.35-7.45)
[2018-07-10 05:53] LABS: ALV-art Gradient 58.065 (0-20); CO2 Tension 71.9 mmHg (35.0-45.0); O2 Tension (PaO2) 51.7 mmHg (80.0-100.0); Puncture Site LBA
[2018-07-10] MEDS ORDERED: Furosemide 40 MG/4 ML VIAL ONE ×2 (06:27→16:21)
--- NOTE | 2018-07-10 08:04 | RAD ---
SINGLE VIEW OF THE CHEST: Comparison: 07-08-18 History: Bronchitis and chest pain. FINDINGS: Single view of the chest shows an enlarged cardiomediastinal silhouette. Bilateral perihilar fullness likely represents pulmonary vascular enlargement. No change has occurred compared to the prior exam. IMPRESSION: Stable exam. POS: HERMINIA
[2018-07-10 08:08] LABS: Bilirubin Negative (Negative); Blood, Urine Negative (Negative); Clarity CLEAR (Clear); Glucose, Urine (Dipstick) Negative (Negative); Leukocyte Negative (Negative); Nitrite Negative (Negative); Protein, Urine (Dipstick) Negative (Neg-Trace); Specific Gravity, Urine 1.006 (1.002-1.036); Urobilinogen 0.2 mg/dL (0.2-1.0)
[2018-07-10] MEDS ORDERED: hydrALAZINE 25 MG TAB PO SCH (09:30)
--- NOTE | 2018-07-10 09:43 | HP ---
PRIMARY CARE PHYSICIAN: Jazz Pruett MD CHIEF COMPLAINT: Shortness of breath. HISTORY OF PRESENT ILLNESS: Ms. Sierra is a very pleasant 52-year-old female, who has a history of chronic respiratory failure, on home oxygen. She also has history of atrial fibrillation and morbid obesity. She was in her usual state of health until this morning. About 2 o'clock in the a.m., she began getting extremely short of breath. She had just been discharged from the hospital yesterday and had been admitted for an acute on chronic respiratory failure exacerbation, which was thought to be due to acute on chronic diastolic heart failure. She says that when she went home, she was feeling a bit tired, but was breathing okay. She says all she ate was a yogurt and an apple and then went to sleep. She says that she again awoke about 2 o'clock in the morning, extremely short of breath. She had some pain in the center of her chest. She says she "could not get any air" and as a result, came to the ER for evaluation. In the emergency room, she was found to be hypoxic and placed on BiPAP. Chest x-ray showed some mild pulmonary vascular congestion and she is being admitted for further evaluation. The patient also notes some increasing lower extremity edema, but no fevers, no chills, no nausea, and no vomiting. She has had an occasional cough and congestion. Otherwise, no other complaints. REVIEW OF SYSTEMS: All systems were reviewed and are negative except for that mentioned in the history of present illness. PAST MEDICAL HISTORY: Significant for atrial fibrillation, obstructive sleep apnea, chronic anticoagulation, morbid obesity, and chronic diastolic heart failure. PAST SURGICAL HISTORY: She has had a hysterectomy. She has had a cardioversion. ALLERGIES: TO LISINOPRIL, DULOXETINE, NEBIVOLOL, AND PENICILLIN. SOCIAL HISTORY: She is . She is nonsmoker, nondrinker. She is a full code. FAMILY HISTORY: History of hypertension. CURRENT MEDICATIONS: Include; 1. Tylenol Extra Strength. 2. Albuterol nebs p.r.n. 3. Allopurinol 300 mg daily. 4. Eliquis 5 mg twice a day. 5. Aspirin 81 mg daily. 6. Atorvastatin 10 mg at bedtime. 7. Carvedilol 25 mg twice a day. 8. Multivitamin daily. 9. Vitamin D3 of 5000 units daily. 10. Flecainide 100 mg twice daily. 11. Furosemide 40 mg daily. 12. Hydralazine 100 mg twice a day. 13. Prednisone. PHYSICAL EXAMINATION: GENERAL: She is awake and alert. She is currently on BiPAP. She is well developed and well nourished. She appears to be in no acute distress. VITAL SIGNS: The blood pressure was ranging from 125/82 up to 185 systolic, heart rate 82, respiratory rate of 24, and temperature is 98.1. HEENT: Her pupils are equal, round, and reactive. Extraocular muscles are intact. Her sclerae are anicteric. Throat; there is no erythema, no exudates. NECK: No adenopathy. No bruits. LUNGS: She has some fine crackles in both bases about chcf up in the lung paige. CARDIOVASCULAR: Heart rate is tachycardic. It is irregular. There is no murmurs or clicks, no rubs. ABDOMEN: Obese. It is soft, nontender, and nondistended. Positive for bowel sounds. There is no rebound, no guarding. EXTREMITIES: She has 1 to 2+ pitting edema. No calf tenderness. No evidence of any crepitus. NEUROLOGIC: Her cranial nerves are intact. Her muscle strength is 5/5 in both her upper and lower extremities. SKIN AND INTEGUMENT: There is no significant rash. IMAGING DATA: On her chest x-ray by my reading, it is poorly penetrated, likely due to the body habitus. She has cardiomegaly and increased pulmonary vascular markings. On her EKG also by my reading, it is a sinus rhythm, the rate is 83, and she has a prolonged QT and some nonspecific ST wave abnormalities. LABORATORY DATA: Sodium is 140, potassium 3.7, chloride is 97, CO2 of 33, BUN of 8, creatinine 0.82, and glucose is 106. Her white blood cell count is 4.3, hemoglobin 12.5, hematocrit is 39.8, and platelet count was 291. Urinalysis was negative. ASSESSMENT: This is a pleasant 52-year-old female, who is admitted with acute on chronic respiratory failure. This is likely as a result of acute on chronic diastolic heart failure. Given the sudden nature of the episode, it is concerning that she could have some type of underlying angina as a possibility and that she was having some chest pain when she awoke from sleep with this hypoxic episode, and she has had several admissions with similar presentations. For this reason, we will likely consult Cardiology as well as Pulmonology to help evaluate the patient and make sure that there are no other underlying causes contributing to her condition. It is known that her untreated obstructive sleep apnea is likely a potential complicating factor. 1. Acute on chronic diastolic heart failure. She will be placed in telemetry. Continue to diurese her. Reconcile and restart her home medications and she may need adjustment in her medications for adequate blood pressure control. 2. Obstructive sleep apnea. The patient says that she recently underwent sleep study and is currently waiting for the results. We will consult Pulmonology for aid in helping manage her obesity hypoventilation. 3. History of atrial fibrillation. She is currently in sinus rhythm and she is on Eliquis for stroke prevention and morbid obesity. We will consult dietitian for calorie-restricted diet. Job ID: [id number]
[2018-07-10] MEDS ORDERED: Acetaminophen 325 MG TAB PO PRN (10:40)
[2018-07-10] MEDS ORDERED: Nitroglycerin 2% Ointment 1 INCH/1 GM Packet ONE ×2 (11:04→20:38)
[2018-07-10] MEDS ORDERED: Famotidine 20 MG TAB ONE ×2 (11:04→20:38)
[2018-07-10] MEDS ORDERED: Aspirin 325 MG TAB ONE (11:04)
[2018-07-10 12:43] LABS: Cardiac Risk 4.7 (Less than 4.5)
[2018-07-10 12:47] LABS: Troponin I 0.013 ng/mL (< 0.028)
[2018-07-10] MEDS: Furosemide 40 MG/4 ML VIAL SLOW IVP SCH (16:24)
[2018-07-10] MEDS: Nitroglycerin 2% Ointment 1 INCH/1 GM Packet TOP SCH ×2 (16:32→20:39)
[2018-07-10] MEDS: Famotidine 20 MG TAB PO SCH (20:39)
--- NOTE | 2018-07-11 00:32 | CON ---
DATE OF CONSULTATION: 07/10/2018 HISTORY OF PRESENT ILLNESS: Disha Sierra is a 52-year-old black female with history of atrial flutter and atrial fibrillation. She was recently hospitalized in early June 2018 with atrial fibrillation. She underwent electrical cardioversion after transesophageal echo by Dr. Ramirez. She was then readmitted on July 04 with mild diastolic heart failure. She was discharged yesterday. She then awoke at 3 or so early this morning with acute onset of shortness of breath. She tried to take a neb treatment. However, this did not improve her breathing and so, she came back to the emergency room. She had some mild chest discomfort with this. She has continued to be in sinus rhythm. PAST MEDICAL HISTORY: Atrial fibrillation, atrial flutter, morbid obesity, obstructive sleep apnea, diastolic heart failure, and hypertension. OPERATIONS: Hysterectomy. MEDICATIONS: 1. Albuterol nebs. 2. Allopurinol 300 daily. 3. Eliquis 5 mg b.i.d. 4. Aspirin 81 daily. 5. Atorvastatin 10 daily. 6. Carvedilol 25 mg b.i.d. 7. Multivitamin daily. 8. Flecainide 100 mg b.i.d. 9. Furosemide 40 daily. 10. Hydralazine 100 mg b.i.d. 11. Prednisone. ALLERGIES: LISINOPRIL, PENICILLIN, BYSTOLIC, DULOXETINE, AND CYMBALTA. SOCIAL HISTORY: She does not smoke or drink. FAMILY HISTORY: Negative for coronary artery disease. REVIEW OF SYSTEMS: A 12-point review of systems is unremarkable. PHYSICAL EXAMINATION: VITAL SIGNS: Blood pressure 125/82. HEENT: PERRL. NECK: Supple. CHEST: Reveals crackles at the bases. CARDIOVASCULAR: S1 and S2 normal without any S3 or S4. There are no murmurs. ABDOMEN: Obese. Normal bowel sounds. No tenderness. EXTREMITIES: Reveal 1+ pretibial edema. NEUROLOGIC: Grossly intact. SKIN: Warm and dry. LABORATORY DATA: I do not see an EKG on the chart. However, rhythm strip shows normal sinus rhythm. White count 4300, hemoglobin 12.5, hematocrit 39.8, and platelets 291,000. D-dimer 0.77. PH 7.36, pCO2 of 71.9, PO2 of 51.7. Troponin I is normal. Cholesterol 121, triglycerides 62, HDL 26, LDL 83. BNP 226.0. Sodium 140, potassium 3.7, chloride 97, carbon dioxide 33, BUN 8, and creatinine 0.82. IMPRESSION: 1. Acute on chronic diastolic heart failure. 2. Obesity hypoventilation syndrome. 3. Obstructive sleep apnea. 4. History of atrial fibrillation status post cardioversion approximately one month ago, continues to remain in sinus rhythm. 5. Hypertension. 6. Hypercholesterolemia. PLAN: The patient will continue to be diuresed. She will continue to use home oxygen. Job ID: [id number]
[2018-07-11 00:42] VITALS: BMI 56.7
[2018-07-11 05:11] LABS: #Lymphocytes 0.9 thou/uL (1.20-3.40); #Monocytes 0.4 thou/uL (0.11-0.59); #Neutrophils 5.1 thou/uL (1.40-6.50); %Basophils 0.3 % (0.0-1.0); %Eosinophils 0.2 % (0.0-10.0); %Lymphocytes 14.1 % (21.0-51.0); %Monocytes 6.6 % (0.0-10.0); %Neutrophils 78.7 % (42.0-75.0); Hemoglobin 12.3 g/dL (12.0-16.0); Mean Corpuscular HGB CONC 31.5 g/dL (32.0-36.0); Mean Corpuscular Hemoglobin 28.7 pg (27.0-31.0); Mean Corpuscular Volume 91.3 fL (78.0-98.0); Mean Platelet Volume 7.7 fL (7.4-10.4); Platelet Count 322 thou/uL (130-400); RBC Distribution Width 17.3 % (11.5-14.5); Red Blood Cell (RBC) Count 4.27 mill/uL (4.20-5.40); White Blood Cell (WBC) Count 6.5 thou/uL (4.8-10.8)
[2018-07-11 05:26] LABS: Anion Gap 11 mmol/L (10-20); BUN (Urea Nitrogen) 11 mg/dL (9.8-20.1); Calc. Creatinine Clearance 189 mL/min (70-130); Calcium 9.5 mg/dL (7.8-10.44); Carbon Dioxide 34 mmol/L (22-29); Chloride 98 mmol/L (98-107); Estimated GFR-MDRD Greater than 90; Glucose 129 mg/dL (70-105); Potassium 3.9 mmol/L (3.5-5.1); Sodium 139 mmol/L (136-145)
[2018-07-11] MEDS: Furosemide 40 MG/4 ML VIAL SLOW IVP SCH ×2 (06:10→14:25)
[2018-07-11] MEDS: Nitroglycerin 2% Ointment 1 INCH/1 GM Packet TOP SCH ×2 (06:10→14:26)
[2018-07-11] MEDS: Famotidine 20 MG TAB PO SCH ×2 (08:57→20:51)
[2018-07-11] MEDS: Flecainide 50 MG TAB PO SCH ×2 (08:58→20:51)
[2018-07-11] MEDS: Aspirin 325 MG TAB PO SCH (08:58)
[2018-07-11] MEDS ORDERED: Spironolactone 25 MG TAB PO SCH ×2 (09:00)
[2018-07-11] MEDS ORDERED: Communication Order-Pharmacy FS SCH (11:15)
--- NOTE | 2018-07-11 14:35 | PDOC.PN ---
- Subjective Encounter Start Date: 07/11/18 Encounter Start Time: 10:30 Subjective: no sob or chest pain -: feels better - Objective Resuscitation Status - Order Detail: 07/10/18 08:43 Resuscitation Status Routine Resuscitation Status: FULL: Full Resuscitation MAR Reviewed: Yes Vital Signs & Weight: Vital Signs (12 hours) Temp Pulse Resp BP Pulse Ox 07/11/18 11:23 98.5 F 85 18 133/87 95 07/11/18 09:15 95 07/11/18 07:39 98.4 F 84 18 128/75 95 07/11/18 03:00 98.4 F 92 17 130/75 92 L Weight Weight 320 lb Result Diagrams: 07/11/18 04:45 07/11/18 04:45 Phys Exam - Physical Examination HEENT: PERRLA, moist MMs Neck: no JVD, supple Respiratory: no wheezing, no rales Cardiovascular: RRR, no significant murmur Gastrointestinal: soft, non-tender, positive bowel sounds Musculoskeletal: no edema, pulses present Neurological: non-focal, moves all 4 limbs Psychiatric: normal affect, A&O x 3 Dx/Plan (1) Acute on chronic diastolic (congestive) heart failure Code(s): I50.33 - ACUTE ON CHRONIC DIASTOLIC (CONGESTIVE) HEART FAILURE Status : Acute (2) Paroxysmal A-fib Code(s): I48.0 - PAROXYSMAL ATRIAL FIBRILLATION Status: Chronic Comment: in sinus (3) Acute respiratory failure with hypoxia Code(s): J96.01 - ACUTE RESPIRATORY FAILURE WITH HYPOXIA Status: Resolved (4) HTN (hypertension) Code(s): I10 - ESSENTIAL (PRIMARY) HYPERTENSION Status: Chronic Qualifiers: Hypertension type: essential hypertension Qualified Code(s): I10 - Essential (primary) hypertension (5) Morbid obesity Code(s): E66.01 - MORBID (SEVERE) OBESITY DUE TO EXCESS CALORIES Status: Chronic - Plan is on lasix q12h, spironolactone -: for cath in am per staff -: continue asp, lipitor, coreg and flecainide -: has life threatening obesity, needs bariatric procedure via PCP adv -: to amb as tolerated * . Review of Systems - Medications/Allergies Allergies/Adverse Reactions: Allergies Allergy/AdvReac Type Severity Reaction Status Date / Time duloxetine HCl Allergy Verified 07/08/18 19:39 [From Cymbalta] lisinopril Allergy Rash Verified 07/08/18 19:39 nebivolol HCl [From Bystolic] Allergy Rash Verified 07/08/18 19:39 Penicillins Allergy Rash Verified 07/08/18 19:39 FIGS Allergy Rash Uncoded 07/08/18 19:39 Medications: Current Medications Acetaminophen (Tylenol) 650 mg PO Q4H PRN PRN Reason: Headache/Fever/Mild Pain (1-3) Albuterol/Ipratropium (Duoneb) 3 ml NEB [id number] PRN PRN Reason: SOB &/or Wheezing Aspirin (Aspirin) 325 mg PO DAILY PENDING SALE TO [facility] Last Admin: 07/11/18 08:58 Dose: 325 mg Atorvastatin Calcium (Lipitor) 10 mg PO HS PENDING SALE TO [facility] Carvedilol (Coreg) 6.25 mg PO BID-[facility] Famotidine (Pepcid) 20 mg PO BID PENDING SALE TO [facility] Last Admin: 07/11/18 08:57 Dose: 20 mg Flecainide Acetate (Tambocor) 50 mg PO Q12HR PENDING SALE TO [facility] Last Admin: 07/11/18 08:58 Dose: 50 mg Furosemide (Lasix) 40 mg SLOW IVP 0600,1400 PENDING SALE TO [facility] Last Admin: 07/11/18 14:25 Dose: 40 mg Miscellaneous Information (Communication Order-Pharmacy) 0 each FS ONE PENDING SALE TO [facility] Stop: 07/12/18 11:16 Nitroglycerin (Nitro-Bid 2% Ointment) 0.5 inch TOP Q8HR PENDING SALE TO [facility] Last Admin: 07/11/18 14:26 Dose: 0.5 inch Spironolactone (Aldactone) 25 mg PO QAM-[facility]
--- NOTE | 2018-07-11 17:23 | CON ---
DATE OF CONSULTATION: 07/11/2018 CONSULTING PHYSICIAN: Hospitalist Service. REASON FOR CONSULTATION: LUIGI. HISTORY OF PRESENT ILLNESS: Ms. Sierra is a pleasant 52-year-old Afro-[place] female, who was brought to the hospital yesterday with increasing shortness of breath and pulmonary edema from diastolic heart dysfunction. Recently, she underwent a sleep study. I was able to review this earlier today. She has severe apnea and had an incomplete CPAP titration because of lack of time. It looks like she would need at least a CPAP pressure between 12 and 15, and perhaps even BiPAP. Last night, she slept with CPAP while in the hospital with a full face mask and she actually slept quite well. PAST MEDICAL HISTORY: 1. Paroxysmal atrial fibrillation. 2. LUIGI. 3. Morbid obesity. 4. Chronic diastolic heart failure. 5. Question of asthma. PAST SURGICAL HISTORY: 1. Hysterectomy. 2. Cardioversion. ALLERGIES: LISINOPRIL, DULOXETINE, NEBIVOLOL, AND PENICILLIN. SOCIAL HISTORY: She is . Does not smoke. Does not drink alcohol. She is retired from [employer] here. FAMILY MEDICAL HISTORY: Hypertension. MEDICATIONS: Prior to admission; 1. Tylenol. 2. Albuterol. 3. Allopurinol. 4. Eliquis. 5. Aspirin. 6. Atorvastatin. 7. Carvedilol. 8. Multivitamin. 9. Vitamin D3. 10. Flecainide. 11. Furosemide. 12. Hydralazine. 13. Prednisone. 14. She was also on oxygen at 3 L nasal cannula at night. REVIEW OF SYSTEMS: A 12-point review of systems remarkable for peripheral edema, shortness of breath, orthopnea, paroxysmal nocturnal dyspnea, otherwise negative. PHYSICAL EXAMINATION: VITAL SIGNS: Temperature 98.4, pulse 84, respirations 18, O2 saturation 95% on 2 L, and blood pressure 128/75. The patient is 5 feet 3 inches, weighs 320 pounds. Her BMI is 56. HEENT: She has a class 3 Mallampati airway. NECK: Without adenopathy or JVD. LUNGS: She has few inspiratory crackles at both bases. No wheezes. CARDIAC: S1 and S2, regular. ABDOMEN: Soft, obese, nontender, and nondistended. EXTREMITIES: No clubbing or cyanosis. She has 2+ edema from her knees downward. LABORATORY DATA: White blood cell count 6.5, hematocrit 39, and platelet count 322. PH of 7.36, pCO2 of 72, pO2 of 52 on 2 L nasal cannula. BNP was 226. Sodium 139, potassium 3.9, chloride 98, CO2 of 34, BUN 11, creatinine 0.7, glucose 129. Her chest x-ray showed pulmonary edema and cardiomegaly. ASSESSMENT: 1. Diastolic heart failure. 2. Pulmonary edema. 3. Obstructive sleep apnea/Pickwickian syndrome. 4. Question of underlying asthmatic bronchitis. 5. Nocturnal hypoxemia, which is probably secondary to obstructive sleep apnea. PLAN: 1. The patient will need CPAP set up as an outpatient. She would need an auto CPAP set up between pressure of 10 and 20. She would follow up with downloads in the months thereafter and if necessary go back for a BiPAP titration if this did not work to rectify her apnea. At the time of this dictation, her finalized copy of her sleep study report is pending and hopefully, we can get that to her prior to discharge so she can get her CPAP equipment. 2. Continue diuresis as you are doing. 3. She will also need PFTs as an outpatient to further evaluate for the possibility of asthma. At the current time with pulmonary edema, obtaining PFTs would probably yield an inaccurate result. Job ID: [id number]
[2018-07-11] MEDS: Carvedilol 6.25 MG TAB PO SCH (17:45)
[2018-07-11] MEDS: Atorvastatin Calcium 10 MG TAB PO SCH (23:38)
[2018-07-12] MEDS: Flecainide 50 MG TAB PO SCH ×2 (05:39→20:21)
[2018-07-12] MEDS: Famotidine 20 MG TAB PO SCH ×2 (05:40→20:21)
[2018-07-12] MEDS: Spironolactone 25 MG TAB PO SCH (05:40)
[2018-07-12] MEDS: Aspirin 325 MG TAB PO SCH (05:40)
[2018-07-12] MEDS ORDERED: Heparin 10,000 UNITS/1 ML VIAL ONE (06:44)
[2018-07-12] MEDS ORDERED: Verapamil 5 MG/2 ML VIAL ONE (06:44)
[2018-07-12] MEDS ORDERED: Nitroglycerin 100MG/250ML BOT 250 ML ONE (07:39)
[2018-07-12] MEDS ORDERED: Midazolam HCl 2 mg/2 ml Vial ONE (07:45)
[2018-07-12] MEDS ORDERED: Fentanyl 100 MCG/2 ML VIAL ONE (07:46)
[2018-07-12] MEDS ORDERED: traMADol HCl 50 MG TAB PO PRN (08:01)
[2018-07-12] MEDS ORDERED: Acetaminophen/Codeine 30-300mg Tablet PO PRN (08:01)
[2018-07-12] MEDS ORDERED: Sodium Chloride 0.9% 1,000 ML IV SCH (08:15)
[2018-07-12] MEDS ORDERED: Sodium Chloride 0.9% 200 ML IV SCH (08:15)
[2018-07-12] MEDS: Carvedilol 6.25 MG TAB PO SCH ×2 (09:20→16:06)
[2018-07-12] MEDS ORDERED: Iopamidol 370 76% 100 ML VIAL ONE (09:48)
[2018-07-12 09:56] LABS: BUN (Urea Nitrogen) 10 mg/dL (9.8-20.1); Calc. Creatinine Clearance 190 mL/min (70-130); Calcium 9.4 mg/dL (7.8-10.44); Estimated GFR-MDRD Greater than 90; Glucose 87 mg/dL (70-105)
--- NOTE | 2018-07-12 10:05 | PRG ---
DATE OF SERVICE: 07/12/2018 SUBJECTIVE: The patient is doing relatively well. She says she is breathing much better. OBJECTIVE: VITAL SIGNS: Temperature 97.9, pulse 80, respirations 16, O2 sat 94% 2 L, blood pressure 120/78. HEENT: Unremarkable. NECK: No adenopathy. No JVD. LUNGS: Clear. CARDIAC: S1 and S2, regular. ABDOMEN: Soft, nontender. EXTREMITIES: Decreased edema. LABORATORY DATA: No new labs were done today. ASSESSMENT: 1. Obstructive sleep apnea-severe. 2. Diastolic cardiac dysfunction. 3. Pulmonary edema. 4. Obstructive sleep apnea/Pickwickian syndrome. PLAN: 1. CPAP as an outpatient. 2. Continue diuresis. 3. Hopefully, home soon. Job ID: [id number]
[2018-07-12 10:06] LABS: Anion Gap 10 mmol/L (10-20); Carbon Dioxide 39 mmol/L (22-29); Chloride 98 mmol/L (98-107); Potassium 3.9 mmol/L (3.5-5.1); Sodium 143 mmol/L (136-145)
--- NOTE | 2018-07-12 10:31 | PDOC.PN ---
- Subjective Encounter Start Date: 07/12/18 Encounter Start Time: 10:00 Subjective: no sob, had cath this am -: is using cpap at night - Objective Resuscitation Status - Order Detail: 07/10/18 08:43 Resuscitation Status Routine Resuscitation Status: FULL: Full Resuscitation MAR Reviewed: Yes Vital Signs & Weight: Vital Signs (12 hours) Temp Pulse Resp BP Pulse Ox 07/12/18 08:18 97.9 F 83 16 128/78 94 L 07/12/18 08:17 95 07/12/18 04:00 98 F 94 20 130/84 95 Weight Weight 309 lb I&O: 07/11/18 07/12/18 07/13/18 06:59 06:59 06:59 Intake Total 330 Output Total 2185 Balance -1855 Result Diagrams: 07/11/18 04:45 07/12/18 09:36 Phys Exam - Physical Examination HEENT: PERRLA, moist MMs Neck: no JVD, supple Respiratory: no wheezing, no rales Cardiovascular: RRR, no significant murmur Gastrointestinal: soft, non-tender, positive bowel sounds Musculoskeletal: no edema, pulses present Neurological: non-focal, moves all 4 limbs Psychiatric: normal affect, A&O x 3 Dx/Plan (1) Acute on chronic diastolic (congestive) heart failure Code(s): I50.33 - ACUTE ON CHRONIC DIASTOLIC (CONGESTIVE) HEART FAILURE Status : Acute (2) Paroxysmal A-fib Code(s): I48.0 - PAROXYSMAL ATRIAL FIBRILLATION Status: Chronic Comment: in sinus (3) Acute respiratory failure with hypoxia Code(s): J96.01 - ACUTE RESPIRATORY FAILURE WITH HYPOXIA Status: Resolved (4) HTN (hypertension) Code(s): I10 - ESSENTIAL (PRIMARY) HYPERTENSION Status: Chronic Qualifiers: Hypertension type: essential hypertension Qualified Code(s): I10 - Essential (primary) hypertension (5) Morbid obesity Code(s): E66.01 - MORBID (SEVERE) OBESITY DUE TO EXCESS CALORIES Status: Chronic (6) LUIGI (obstructive sleep apnea) Code(s): G47.33 - OBSTRUCTIVE SLEEP APNEA (ADULT) (PEDIATRIC) Status: Acute - Plan cath showed normal coronaries -: continue iv diuresis for another 24hrs and switch to oral meds -: is getting her prescription for cpap before she goes home -: is on asp, lipitor, coreg, flecainide and spironolactone -: to amb as tolerated * . Review of Systems - Medications/Allergies Allergies/Adverse Reactions: Allergies Allergy/AdvReac Type Severity Reaction Status Date / Time duloxetine HCl Allergy Verified 07/08/18 19:39 [From Cymbalta] lisinopril Allergy Rash Verified 07/08/18 19:39 nebivolol HCl [From Bystolic] Allergy Rash Verified 07/08/18 19:39 Penicillins Allergy Rash Verified 07/08/18 19:39 FIGS Allergy Rash Uncoded 07/08/18 19:39 Medications: Current Medications Acetaminophen (Tylenol) 650 mg PO Q4H PRN PRN Reason: Headache/Fever/Mild Pain (1-3) Acetaminophen/Codeine Phosphate (Tylenol #3) 1 tab PO Q4H PRN PRN Reason: Mild Pain (1-3) Albuterol/Ipratropium (Duoneb) 3 ml NEB [id number] PRN PRN Reason: SOB &/or Wheezing Aspirin (Aspirin) 325 mg PO DAILY [facility] Last Admin: 07/12/18 05:40 Dose: 325 mg Atorvastatin Calcium (Lipitor) 10 mg PO HS [facility] Last Admin: 07/11/18 23:38 Dose: Not Given Carvedilol (Coreg) 6.25 mg PO BID-[facility] Last Admin: 07/12/18 09:20 Dose: 6.25 mg Famotidine (Pepcid) 20 mg PO BID [facility] Last Admin: 07/12/18 05:40 Dose: 20 mg Flecainide Acetate (Tambocor) 50 mg PO Q12HR [facility] Last Admin: 07/12/18 05:39 Dose: 50 mg Furosemide (Lasix) 40 mg SLOW IVP 0600,1400 [facility] Last Admin: 07/11/18 14:25 Dose: 40 mg Sodium Chloride (Normal Saline 0.9%) 1,000 mls @ 100 mls/hr IV .Q10H [facility] Stop: 07/12/18 13:15 Last Admin: 07/12/18 09:21 Dose: 1,000 mls Miscellaneous Information (Communication Order-Pharmacy) 0 each FS ONE [facility] Stop: 07/12/18 11:16 Spironolactone (Aldactone) 25 mg PO QAM-[facility] Last Admin: 01/09/19 05:40 Dose: 25 mg Tramadol HCl (Ultram) 50 mg PO Q6H PRN PRN Reason: Moderate Pain (4-6)
[2018-07-12] MEDS: Furosemide 40 MG/4 ML VIAL SLOW IVP SCH ×2 (11:15→16:05)
[2018-07-12] MEDS: Atorvastatin Calcium 10 MG TAB PO SCH (20:21)
[2018-07-13] MEDS: Furosemide 40 MG/4 ML VIAL SLOW IVP SCH (05:33)
[2018-07-13 05:37] LABS: BUN (Urea Nitrogen) 9 mg/dL (9.8-20.1); Calc. Creatinine Clearance 192 mL/min (70-130); Calcium 9.4 mg/dL (7.8-10.44); Estimated GFR-MDRD Greater than 90; Glucose 91 mg/dL (70-105)
[2018-07-13 05:46] LABS: Anion Gap 15 mmol/L (10-20); Carbon Dioxide 35 mmol/L (22-29); Chloride 98 mmol/L (98-107); Potassium 3.9 mmol/L (3.5-5.1); Sodium 144 mmol/L (136-145)
[2018-07-13] MEDS: Spironolactone 25 MG TAB PO SCH (08:25)
[2018-07-13] MEDS: Carvedilol 6.25 MG TAB PO SCH (08:25)
[2018-07-13] MEDS: Flecainide 50 MG TAB PO SCH (08:26)
[2018-07-13] MEDS: Famotidine 20 MG TAB PO SCH (08:26)
[2018-07-13] MEDS: Aspirin 325 MG TAB PO SCH (08:26)
[2018-07-13] MEDS ORDERED: Apixaban 5 MG TAB PO SCH (09:00)
[2018-07-13] MEDS ORDERED: Flecainide 50 MG TAB PO SCH ×4 (09:30→21:00)
--- NOTE | 2018-07-13 10:25 | PDOC.PN ---
- Subjective Encounter Start Date: 07/13/18 Encounter Start Time: 08:35 Subjective: no sob, is sitting on bed - Objective Resuscitation Status - Order Detail: 07/10/18 08:43 Resuscitation Status Routine Resuscitation Status: FULL: Full Resuscitation MAR Reviewed: Yes Vital Signs & Weight: Vital Signs (12 hours) Temp Pulse Resp BP BP Pulse Ox 07/13/18 08:20 98.0 F 89 17 150/77 H 94 L 07/13/18 07:26 95 07/13/18 04:10 97.9 F 80 16 131/80 95 07/12/18 23:35 98.3 F 92 18 129/60 92 L Weight Weight 308 lb I&O: 07/12/18 07/13/18 07/14/18 06:59 06:59 06:59 Intake Total 330 240 Output Total 2185 Balance -1855 240 Result Diagrams: 07/11/18 04:45 07/13/18 04:52 Phys Exam - Physical Examination HEENT: PERRLA, moist MMs Neck: no JVD, supple Respiratory: no wheezing, no rales Cardiovascular: RRR, no significant murmur Gastrointestinal: soft, non-tender, positive bowel sounds Musculoskeletal: no edema, pulses present Neurological: non-focal, moves all 4 limbs Psychiatric: normal affect, A&O x 3 Dx/Plan (1) Acute on chronic diastolic (congestive) heart failure Code(s): I50.33 - ACUTE ON CHRONIC DIASTOLIC (CONGESTIVE) HEART FAILURE Status : Acute (2) Paroxysmal A-fib Code(s): I48.0 - PAROXYSMAL ATRIAL FIBRILLATION Status: Chronic Comment: in sinus (3) Acute respiratory failure with hypoxia Code(s): J96.01 - ACUTE RESPIRATORY FAILURE WITH HYPOXIA Status: Resolved (4) HTN (hypertension) Code(s): I10 - ESSENTIAL (PRIMARY) HYPERTENSION Status: Chronic Qualifiers: Hypertension type: essential hypertension Qualified Code(s): I10 - Essential (primary) hypertension (5) Morbid obesity Code(s): E66.01 - MORBID (SEVERE) OBESITY DUE TO EXCESS CALORIES Status: Chronic (6) LUIGI (obstructive sleep apnea) Code(s): G47.33 - OBSTRUCTIVE SLEEP APNEA (ADULT) (PEDIATRIC) Status: Acute - Plan hemostable -: d/w , will dc home -: cpap script will be sent out from 's office -: cath showed normal coronaries yesterday -: counselled reg med/diet compliance, she has plans for losing weight * . continue eliquis, asp, lipitor, flecainide, coreg, lasix, spironolactone.
--- NOTE | 2018-07-13 10:44 | PRG ---
DATE OF SERVICE: 07/13/2018 SUBJECTIVE: She is feeling good and wants to go home. OBJECTIVE: VITAL SIGNS: Temperature 98, pulse 89, respirations 17, O2 saturation 94% on 2 L, blood pressure 150/77. HEENT: Unremarkable. NECK: No adenopathy. No JVD. LUNGS: Clear. CARDIAC: S1 and S2. Regular. ABDOMEN: Soft. EXTREMITIES: No edema. ASSESSMENT: 1. Obstructive sleep apnea-severe. 2. Diastolic cardiac dysfunction. 3. Pulmonary edema. PLAN: I have written her prescription for auto CPAP set between 10 and 20. She has been instructed to follow up with me between day 60 and day 90 that she has this machine. 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 She is stable for discharge today. Job ID: [id number]
[2018-07-13 11:17] VITALS: BP 117/77; TEMP 97.6
[2018-07-13] MEDS ORDERED: Furosemide 40 MG TAB PO SCH (14:00)
== END 2018-07-13 12:48 | disposition home or self-care (01) | DRG 286 ==
LOC: ERS 04:35 → ERHOLD 06:37 → 2NO 23:30
PROVIDERS: ADMIT Family Medicine; ATTEND Family Medicine
PROC: 4A023N7 Measurement of Cardiac Sampling and Pressure, Left Heart, Percutaneous Approach (ICD-10-PCS; principal; 2018-07-10)
PROC: B2111ZZ Fluoroscopy of Multiple Coronary Arteries using Low Osmolar Contrast (ICD-10-PCS; 2018-07-10)
DX: I11.0 Hypertensive heart disease with heart failure (principal); J96.21 Acute and chronic respiratory failure with hypoxia; E66.2 Morbid (severe) obesity with alveolar hypoventilation; Z68.43 Body mass index [BMI] 50.0-59.9, adult; I50.33 Acute on chronic diastolic (congestive) heart failure; G47.33 Obstructive sleep apnea (adult) (pediatric); Z99.81 Dependence on supplemental oxygen; Z79.01 Long term (current) use of anticoagulants; Z79.82 Long term (current) use of aspirin; E78.00 Pure hypercholesterolemia, unspecified; I48.0 Paroxysmal atrial fibrillation
CPT/HCPCS: 36415; 71045; 80048; 80053; 80061; 81003; 82550; 82553; 82805; 83605; 83735; 83880; 84484; 85007; 85025; 85027; 85379; 85610; 85730; 90471; 90686; 93005; 93458; 93798; 94640; 94660; 94760; 96374; 96376; 99152; C1769; G0008; G0378; J1644; J1940; J1956; J2250; J2930; J3010; J7611; J7620

== ENCOUNTER 2018-07-30 10:35 | Emergency (ER) | payer MEDICARE ==
[2018-07-30 11:28] LABS: #Eosinphils 0.1 thou/uL (0.0-0.7); #Lymphocytes 1.1 thou/uL (1.20-3.40); #Monocytes 0.4 thou/uL (0.11-0.59); #Neutrophils 3.5 thou/uL (1.40-6.50); %Basophils 0.9 % (0.0-1.0); %Eosinophils 1.5 % (0.0-10.0); %Monocytes 6.9 % (0.0-10.0); %Neutrophils 68.8 % (42.0-75.0); Hemoglobin 15.1 g/dL (12.0-16.0); Mean Corpuscular Hemoglobin 28.3 pg (27.0-31.0); Mean Corpuscular Volume 91.1 fL (78.0-98.0); Mean Platelet Volume 10.2 fL (7.4-10.4); Platelet Count 178 thou/uL (130-400); RBC Distribution Width 18.8 % (11.5-14.5); Red Blood Cell (RBC) Count 5.35 mill/uL (4.20-5.40); White Blood Cell (WBC) Count 5.1 thou/uL (4.8-10.8)
--- NOTE | 2018-07-30 11:40 | RAD ---
RADIOGRAPH CHEST 1 VIEW: HISTORY: A 53-year-old female with dyspnea and tachycardia. FINDINGS: There is no air space density, pulmonary edema, or pneumothorax. The lateral costophrenic angles are sharp. IMPRESSION: No acute pulmonary findings. jenny [] POS: HERMINIA
[2018-07-30 11:41] LABS: ALT (SGPT) 49 U/L (8-55); AST (SGOT) 38 U/L (5-34); Alkaline Phosphatase 53 U/L (40-150); Anion Gap 18 mmol/L (10-20); BUN (Urea Nitrogen) 16 mg/dL (9.8-20.1); Bilirubin, Total 0.7 mg/dL (0.2-1.2); CK (CPK) 30 U/L (29-168); Calc. Creatinine Clearance 0 mL/min (70-130); Calcium 9.9 mg/dL (7.8-10.44); Carbon Dioxide 24 mmol/L (22-29); Chloride 103 mmol/L (98-107); Estimated GFR-MDRD 88; Globulin 3.2 g/dL (2.4-3.5); Glucose 95 mg/dL (70-105); Potassium 3.9 mmol/L (3.5-5.1); Protein, Total 7.2 g/dL (6.0-8.3); Sodium 141 mmol/L (136-145)
[2018-07-30 12:01] LABS: CKMB 0.5 ng/mL (0-6.6)
== END 2018-07-30 12:45 | disposition home or self-care (01) ==
LOC: ERS 10:35
DX: I48.0 Paroxysmal atrial fibrillation (principal); I11.0 Hypertensive heart disease with heart failure; I50.9 Heart failure, unspecified; Z79.899 Other long term (current) drug therapy
CPT/HCPCS: 71045; 80053; 82550; 82553; 83880; 84484; 85025; 93005

== ENCOUNTER 2018-09-03 04:32 | Inpatient (IN) | payer MEDICARE ==
[2018-09-03 05:24] LABS: #Eosinphils 0.1 thou/uL (0.0-0.7); #Lymphocytes 1.2 thou/uL (1.20-3.40); #Monocytes 0.4 thou/uL (0.11-0.59); #Neutrophils 4.3 thou/uL (1.40-6.50); %Basophils 0.6 % (0.0-1.0); %Eosinophils 1.9 % (0.0-10.0); %Lymphocytes 19.9 % (21.0-51.0); %Monocytes 7.3 % (0.0-10.0); %Neutrophils 70.3 % (42.0-75.0); Hemoglobin 14.8 g/dL (12.0-16.0); Mean Corpuscular HGB CONC 32.1 g/dL (32.0-36.0); Mean Corpuscular Hemoglobin 30.6 pg (27.0-31.0); Mean Corpuscular Volume 95.3 fL (78.0-98.0); Mean Platelet Volume 9.8 fL (7.4-10.4); Platelet Count 193 thou/uL (130-400); RBC Distribution Width 17.7 % (11.5-14.5); Red Blood Cell (RBC) Count 4.85 mill/uL (4.20-5.40); White Blood Cell (WBC) Count 6.1 thou/uL (4.8-10.8)
[2018-09-03 05:45] LABS: ALT (SGPT) 30 U/L (8-55); AST (SGOT) 30 U/L (5-34); Albumin 4.2 g/dL (3.5-5.0); Alkaline Phosphatase 67 U/L (40-150); Anion Gap 16 mmol/L (10-20); BUN (Urea Nitrogen) 23 mg/dL (9.8-20.1); Bilirubin, Total 0.5 mg/dL (0.2-1.2); Calc. Creatinine Clearance 0 mL/min (70-130); Calcium 10.6 mg/dL (7.8-10.44); Carbon Dioxide 24 mmol/L (22-29); Chloride 103 mmol/L (98-107); Estimated GFR-MDRD 80; Globulin 3.5 g/dL (2.4-3.5); Glucose 87 mg/dL (70-105); Magnesium 2.1 mg/dL (1.6-2.6); Potassium 4.4 mmol/L (3.5-5.1); Protein, Total 7.7 g/dL (6.0-8.3); Sodium 139 mmol/L (136-145)
[2018-09-03] MEDS ORDERED: Nitroglycerin 0.4 MG TAB (25 Tab Bottle) PO PRN (08:23)
[2018-09-03] MEDS ORDERED: Ondansetron ODT 4 MG TAB PO PRN (08:24)
[2018-09-03] MEDS ORDERED: Ondansetron PF 4 MG/2 ML Vial IVP PRN (08:24)
[2018-09-03] MEDS ORDERED: Acetaminophen 500 MG TAB PO PRN (09:55)
[2018-09-03] MEDS ORDERED: Diltiazem 125 MG/25 ML ONE (10:01)
[2018-09-03] MEDS ORDERED: Diltiazem 125 MG in Sodium Chloride 0.9% 100 ML IVPB SCH ×4 (10:15→16:29)
[2018-09-03] MEDS ORDERED: Apixaban 5 MG TAB PO SCH (11:00)
[2018-09-03] MEDS ORDERED: Furosemide 40 MG TAB PO SCH (11:00)
[2018-09-03] MEDS ORDERED: Spironolactone 25 MG TAB PO SCH (11:00)
[2018-09-03] MEDS ORDERED: Flecainide 50 MG TAB PO SCH (11:00)
[2018-09-03] MEDS ORDERED: Multivitamin W/ Minerals 1 TAB PO SCH (11:00)
[2018-09-03] MEDS ORDERED: Digoxin 0.5 MG/2 ML AMP ONE ×2 (12:57→13:50)
[2018-09-03] MEDS ORDERED: Digoxin 0.5 MG/2 ML AMP SLOW IVP SCH ×3 (13:00→14:30)
[2018-09-03] MEDS ORDERED: Metoprolol Tartrate 5 MG/5 ML VIAL ONE (13:50)
[2018-09-03] MEDS ORDERED: Metoprolol Tartrate 5 MG/5 ML VIAL IVP SCH (14:30)
--- NOTE | 2018-09-03 18:15 | HP ---
PRIMARY CARE PHYSICIAN: Jazz Pruett MD PRIMARY SUPERVISOR [employer] FABRICATION: Mark Ramirez MD CHIEF COMPLAINT: Palpitations. HISTORY OF PRESENT ILLNESS: The patient is a 53-year-old female with chronic respiratory failure, on home oxygen at night, paroxysmal atrial fibrillation, on anticoagulation, and morbid obesity, presented to the hospital with palpitations. The patient woke up around 3:00 a.m. with palpitations along with shortness of breath. She felt lightheaded, dizzy with minimal diaphoresis. No fever, chills, orthopnea, paroxysmal nocturnal dyspnea, or leg swelling reported. She took all of her medications including Eliquis, carvedilol, and flecainide prior to ER arrival. In the emergency room, her initial vital signs showed temperature 98.3 respiration of 16, pulse rate of 115, blood pressure of 165/103 with O2 saturation of 96% on room air. While in the emergency room, her heart rate remained between 130s to 140. EKG showed atrial fibrillation, initially followed by atrial flutter with rapid ventricular response. PAST MEDICAL HISTORY: 1. Paroxysmal atrial fibrillation, on anticoagulation. 2. Morbid obesity. 3. Obstructive sleep apnea, on CPAP. 4. Chronic respiratory failure, on home oxygen at night. 5. Chronic diastolic heart failure. 6. Negative cardiac catheterization in July of 2018. PAST SURGICAL HISTORY: 1. Cardioversion. 2. Hysterectomy. 3. Cardiac catheterization. ALLERGIES: THE PATIENT IS ALLERGIC TO LISINOPRIL, CYMBALTA, NEBIVOLOL, AND PENICILLIN. CURRENT HOME MEDICATIONS: 1. Flecainide 100 mg b.i.d. 2. Lasix 40 mg daily. 3. Multivitamin daily. 4. Eliquis 5 mg b.i.d. 5. Lipitor 10 mg at bedtime. 6. Carvedilol 6.25 mg b.i.d. 7. Aldactone 25 mg daily. 8. Vitamin D3 daily. 9. Allopurinol 300 mg daily. SOCIAL HISTORY: The patient currently lives at home with her family. Denies any current use of smoking, alcohol, or drug use. FAMILY HISTORY: Positive for hypertension. REVIEW OF SYSTEMS: All other review of systems was reviewed and were found negative. PHYSICAL EXAMINATION: VITAL SIGNS: As discussed above. GENERAL: 53-year-old female, in no apparent distress. HEENT: Head atraumatic, normocephalic. Sclerae anicteric. Moist mucous membranes. No oral lesion. NECK: Supple. No JVD appreciated. No carotid bruit. LUNGS: Showed diminished air entry at bilateral bases. No significant rhonchi or wheezing. Symmetrical. HEART: S1, S2 present. Irregularly irregular. No heaves or pulsation. No significant murmurs appreciated, tachycardic. ABDOMEN: Soft, obese, bowel sounds present. EXTREMITIES: No edema or calf tenderness. NEUROLOGY: Grossly nonfocal. Moves all 4 extremities. PSYCHIATRY: Alert awake oriented x3. SKIN: Warm and dry. LYMPH NODES: No palpable lymph nodes in the neck. LABORATORY FINDINGS: D-dimer was negative. Troponin was negative. BUN 23, creatinine 0.89. TSH 2.3. WBC 6.1 with hemoglobin 14.8. EKG by my review as discussed above. Chest x-ray by my review was negative for infiltrate or edema. IMPRESSION: 1. Atrial fibrillation/flutter with rapid ventricular response. 2. Morbid obesity. 3. History of paroxysmal atrial fibrillation, on anticoagulation. 4. Hyperlipidemia. 5. Chronic respiratory failure, on home oxygen at bedtime. 6. Chronic diastolic heart failure. 7. Obstructive sleep apnea, on CPAP. PLAN: The patient has been started on Cardizem drip. We will start her on digoxin loading. We will continue flecainide, carvedilol, Lasix, and Aldactone. I discussed the case with Cardiology, Dr. Hyman who recommended IV metoprolol 5 mg x1. We will recheck labs in a.m. We will keep her n.p.o. past midnight for Cardiology evaluation. Cardiology will be consulted. Plan of care was discussed with the patient and the family at the bedside. They stated understanding. Job ID: [id number]
[2018-09-04 04:14] LABS: Hemoglobin 13.7 g/dL (12.0-16.0); Platelet Count 178 thou/uL (130-400)
[2018-09-04 04:35] LABS: Anion Gap 14 mmol/L (10-20); BUN (Urea Nitrogen) 15 mg/dL (9.8-20.1); Calc. Creatinine Clearance 0 mL/min (70-130); Calcium 9.9 mg/dL (7.8-10.44); Carbon Dioxide 21 mmol/L (22-29); Chloride 108 mmol/L (98-107); Estimated GFR-MDRD Greater than 90; Glucose 94 mg/dL (70-105); Magnesium 1.9 mg/dL (1.6-2.6); Potassium 4.2 mmol/L (3.5-5.1); Sodium 139 mmol/L (136-145)
[2018-09-04 09:39] VITALS: BMI 54.3
[2018-09-04] MEDS: Carvedilol 6.25 MG TAB PO SCH ×3 (10:00→16:11)
[2018-09-04] MEDS: Apixaban 5 MG TAB PO SCH ×3 (10:01→20:40)
[2018-09-04] MEDS: Atorvastatin Calcium 10 MG TAB PO SCH ×2 (10:01→20:40)
[2018-09-04] MEDS: Flecainide 50 MG TAB PO SCH ×3 (10:02→20:40)
[2018-09-04] MEDS: Spironolactone 25 MG TAB PO SCH (10:04)
[2018-09-04] MEDS: Allopurinol 300 MG TAB PO SCH (10:05)
[2018-09-04] MEDS: Multivitamin W/ Minerals 1 TAB PO SCH (10:06)
[2018-09-04] MEDS: Furosemide 40 MG TAB PO SCH (10:06)
--- NOTE | 2018-09-04 17:12 | PDOC.PN ---
- Subjective Encounter Start Date: 09/04/18 Encounter Start Time: 08:00 Patient seen and examined for Afib/Aflutter with RVR. No CP/SOB. No new complaints. No overnight events - Objective Resuscitation Status - Order Detail: 09/03/18 08:24 Resuscitation Status Routine Resuscitation Status: FULL: Full Resuscitation MAR Reviewed: Yes Vital Signs & Weight: Vital Signs (12 hours) Temp Pulse Resp BP BP Pulse Ox 09/04/18 16:11 98.0 F 73 17 136/87 94 L 09/04/18 11:51 97.6 F 74 17 119/79 96 09/04/18 09:05 97.7 F 71 16 152/90 H 97 Weight Weight 297 lb 6.4 oz Result Diagrams: 09/04/18 03:48 09/04/18 03:48 EKG Reviewed by me: Yes (Tele SR) Phys Exam - Physical Examination Constitutional: NAD Respiratory: no wheezing, no rhonchi Cardiovascular: RRR, no rub Gastrointestinal: soft, non-tender, positive bowel sounds Musculoskeletal: no edema Neurological: moves all 4 limbs Dx/Plan - Plan DVT proph w/SCDs 1. Atrial fibrillation/flutter with rapid ventricular response. 2. Morbid obesity BMI 54.4 3. History of paroxysmal atrial fibrillation, on anticoagulation. 4. Hyperlipidemia. 5. Chronic respiratory failure, on home oxygen at bedtime. 6. Chronic diastolic heart failure. 7. Obstructive sleep apnea, on CPAP. PLAN: Await Cardio input DC Cardizem drip Cont Eliquis/Coreg Cont Fleicainide Cont current meds as below CPAP HS NPO until seen by Cardiology Review of Systems - Review of Systems Respiratory: negative: Cough, Dry, Shortness of Breath, Hemoptysis, SOB with Excertion, Pleuritic Pain, Sputum, Wheezing Cardiovascular: negative: chest pain, palpitations, orthopnea, paroxysmal nocturnal dyspnea, edema, light headedness, other - Medications/Allergies Allergies/Adverse Reactions: Allergies Allergy/AdvReac Type Severity Reaction Status Date / Time duloxetine HCl Allergy Verified 09/04/18 09:53 [From Cymbalta] lisinopril Allergy Rash Verified 09/04/18 09:53 nebivolol HCl [From Bystolic] Allergy Rash Verified 09/04/18 09:53 Penicillins Allergy Rash Verified 09/04/18 09:53 FIGS Allergy Rash Uncoded 09/04/18 09:53 Medications: Current Medications Acetaminophen (Tylenol) 650 mg PO Q4H PRN PRN Reason: Headache/Fever/Mild Pain (1-3) Acetaminophen (Tylenol) 500 mg PO Q6H PRN PRN Reason: Pain [facility]rim) [facility] Last Admin: 09/04/18 10:05 Dose: 300 mg Apixaban (Eliquis) 5 mg PO BID [facility] Last Admin: 09/04/18 10:01 Dose: 5 mg Atorvastatin Calcium (Lipitor) 10 mg PO [facility] Last Admin: 09/04/18 10:01 Dose: Not Given [facility] ([facility]) [facility] Last Admin: 09/04/18 16:11 Dose: 6.25 mg Cholecalciferol (Vitamin D3) 5,000 units PO DAILY [facility] Last Admin: 09/04/18 10:05 Dose: 5,000 units Flecainide Acetate (Tambocor) 100 mg PO BID [facility] Last Admin: 09/04/18 10:02 Dose: 100 mg Furosemide (Lasix) 40 mg PO DAILY [facility] Last Admin: 09/04/18 10:06 Dose: 40 mg Iron/Minerals/Multivitamins (Theragran M) 1 tab PO DAILY [facility] Last Admin: 09/04/18 10:06 Dose: 1 tab Nitroglycerin (Nitrostat) 0.4 mg PO Q5MIN PRN PRN Reason: Chest Pain Ondansetron HCl (Zofran Odt) 4 mg PO Q6H PRN PRN Reason: Nausea/Vomiting Ondansetron HCl (Zofran) 4 mg IVP Q6H PRN PRN Reason: Nausea/Vomiting Sodium Chloride (Flush - Normal Saline) 10 ml IVF PRN PRN PRN Reason: Saline Flush Spironolactone (Aldactone) 25 mg PO QAM-[facility] Last Admin: 09/04/18 10:04 Dose: 25 mg
--- NOTE | 2018-09-04 18:11 | CON ---
DATE OF CONSULTATION: HISTORY OF PRESENT ILLNESS: The patient is a 53-year-old woman with a history of atrial arrhythmias and pulmonary hypertension, who presented with rapid palpitations. The patient has a history of atrial flutter. She has previously undergone ablation. She also has paroxysmal atrial fibrillation,and has been on anticoagulation therapy and flecainide. The patient most recent was admitted with dyspnea. She underwent a cardiac catheterization and she was found to have normal left ventricular systolic function with normal coronary arteries. The patient suffers from morbid obesity, sleep apnea, and pulmonary hypertension. The patient was in usual state of health when she presented with recurrent palpitations. She states that she felt her heart was racing and became mildly dyspneic. PAST MEDICAL HISTORY: 1. Atrial fibrillation/flutter. 2. Hypertension. 3. Sleep apnea. 4. Morbid obesity. 5. Diastolic heart failure. PAST SURGICAL HISTORY: Hysterectomy. ALLERGIES: LISINOPRIL, CYMBALTA, PENICILLIN, AND BYSTOLIC. MEDICATIONS ON ADMISSION: See nursing list. SOCIAL HISTORY: Nonsmoker. FAMILY HISTORY: No strong family history of heart disease. REVIEW OF SYSTEMS: Ten point system otherwise unremarkable. No easy bruising or bleeding. PHYSICAL EXAMINATION: GENERAL: Obese woman, in no acute distress. VITAL SIGNS: Blood pressure was 119/79. NECK: No jugular venous distention. LUNGS: Clear to auscultation. HEART: Regular rate and rhythm. Normal S1 and S2, 1/6 systolic murmur. ABDOMEN: Distended. EXTREMITIES: Show trace edema. LABORATORY DATA: potassium 4.2, chloride 108, bicarbonate 21, BUN 14, creatinine was 0.77. Troponin 0.018. White blood cell count 6.1, hemoglobin 14.8, hematocrit 46.2, and platelets 198. Her EKG revealed atrial tachycardia with 2:1 conduction. IMPRESSION: 1. Atrial tachycardia/flutter. 2. Hypertension. 3. Pulmonary hypertension. 4. History of severe tricuspid regurgitation. 5. Morbid obesity. This patient presents with recurrent atrial arrhythmias. The patient will undergo a followup EP evaluation. We will follow this patient with you through her hospitalization. Job ID: [id number] [facility]
[2018-09-05] MEDS ORDERED: traMADol HCl 50 MG TAB PO PRN (08:18)
[2018-09-05] MEDS: Carvedilol 6.25 MG TAB PO SCH ×2 (08:41→17:16)
[2018-09-05] MEDS: Flecainide 50 MG TAB PO SCH ×2 (08:42→20:26)
[2018-09-05] MEDS: Multivitamin W/ Minerals 1 TAB PO SCH (08:42)
[2018-09-05] MEDS: Allopurinol 300 MG TAB PO SCH (08:42)
[2018-09-05] MEDS: Spironolactone 25 MG TAB PO SCH (08:42)
[2018-09-05] MEDS: Furosemide 40 MG TAB PO SCH (08:43)
[2018-09-05] MEDS: Acetaminophen 325 MG TAB PO PRN ×2 (08:50→17:17)
[2018-09-05] MEDS: Apixaban 5 MG TAB PO SCH ×2 (09:51→20:26)
[2018-09-05] MEDS ORDERED: Heparin 10,000 UNITS/1 ML VIAL ONE (10:34)
[2018-09-05] MEDS ORDERED: Propofol 500 MG/50 ML VIAL ONE ×3 (10:47→13:32)
--- NOTE | 2018-09-05 11:11 | PDOC.PN ---
- Subjective Encounter Start Date: 09/05/18 Encounter Start Time: 09:30 Patient seen and examined for A flutter. No CP/SOB. No new complaints. No overnight events - Objective Resuscitation Status - Order Detail: 09/03/18 08:24 Resuscitation Status Routine Resuscitation Status: FULL: Full Resuscitation MAR Reviewed: Yes Vital Signs & Weight: Vital Signs (12 hours) Temp Pulse Resp BP Pulse Ox 09/05/18 07:27 97.3 F L 80 16 111/80 96 09/05/18 04:00 97.4 F L 80 19 106/57 L 93 L Weight Weight 294 lb 3.2 oz I&O: 09/04/18 09/05/18 09/06/18 06:59 06:59 06:59 Intake Total 1350 Output Total 1250 Balance 100 Result Diagrams: 09/04/18 03:48 09/04/18 03:48 EKG Reviewed by me: Yes (Tele SR) Phys Exam - Physical Examination Constitutional: NAD Respiratory: no wheezing, no rhonchi Cardiovascular: RRR, no rub Gastrointestinal: soft, non-tender, positive bowel sounds Musculoskeletal: no edema Neurological: moves all 4 limbs Dx/Plan - Plan 1. Atrial fibrillation/flutter with rapid ventricular response - in SR 2. Morbid obesity BMI 54.4 3. History of paroxysmal atrial fibrillation, on anticoagulation & Flecainide. 4. Hyperlipidemia. 5. Chronic respiratory failure, on home oxygen at bedtime. 6. Chronic diastolic heart failure. 7. Obstructive sleep apnea, on CPAP. PLAN: Ablation today Cont Eliquis/Coreg/Fleicainide Cont current meds as below Cont CPAP HS DC home once cleared by Cardiology/EP BMP and HH in AM Review of Systems - Review of Systems Respiratory: negative: Cough, Dry, Shortness of Breath, Hemoptysis, SOB with Excertion, Pleuritic Pain, Sputum, Wheezing Cardiovascular: negative: chest pain, palpitations, orthopnea, paroxysmal nocturnal dyspnea, edema, light headedness, other Gastrointestinal: negative: Nausea, Vomiting, Abdominal Pain, Diarrhea, Constipation, Melena, Hematochezia, Other - Medications/Allergies Allergies/Adverse Reactions: Allergies Allergy/AdvReac Type Severity Reaction Status Date / Time duloxetine HCl Allergy Verified 09/04/18 09:53 [From Cymbalta] lisinopril Allergy Rash Verified 09/04/18 09:53 nebivolol HCl [From Bystolic] Allergy Rash Verified 09/04/18 09:53 Penicillins Allergy Rash Verified 09/04/18 09:53 FIGS Allergy Rash Uncoded 09/04/18 09:53 Medications: Current Medications Acetaminophen (Tylenol) 650 mg PO Q4H PRN PRN Reason: Headache/Fever/Mild Pain (1-3) Last Admin: 09/05/18 08:50 Dose: 650 mg Acetaminophen (Tylenol) 500 mg PO Q6H PRN PRN Reason: Pain Albuterol/Ipratropium (Duoneb) 3 ml NEB [id number] PRN PRN Reason: SOB &/or Wheezing Allopurinol (Zyloprim) 300 mg PO QAM [facility] Last Admin: 09/05/18 08:42 Dose: 300 mg Apixaban (Eliquis) 5 mg PO BID [facility] Last Admin: 09/05/18 09:51 Dose: Not Given Atorvastatin Calcium (Lipitor) 10 mg PO [facility] Last Admin: 09/04/18 20:40 Dose: 10 mg Carvedilol (Coreg) 6.25 mg PO BID[facility] Last Admin: 09/05/18 08:41 Dose: 6.25 mg Cholecalciferol (Vitamin D3) 5,000 units PO DAILY [facility] Last Admin: 09/05/18 08:42 Dose: 5,000 units Flecainide Acetate (Tambocor) 100 mg PO BID [facility] Last Admin: 09/05/18 08:42 Dose: 100 mg Furosemide (Lasix) 40 mg PO DAILY [facility] Last Admin: 09/05/18 08:43 Dose: 40 mg Iron/Minerals/Multivitamins (Theragran M) 1 tab PO DAILY [facility] Last Admin: 09/05/18 08:42 Dose: 1 tab Nitroglycerin (Nitrostat) 0.4 mg PO Q5MIN PRN PRN Reason: Chest Pain Ondansetron HCl (Zofran Odt) 4 mg PO Q6H PRN PRN Reason: Nausea/Vomiting Ondansetron HCl (Zofran) 4 mg IVP Q6H PRN PRN Reason: Nausea/Vomiting Sodium Chloride (Flush - Normal Saline) 10 ml IVF PRN PRN PRN Reason: Saline Flush Last Admin: 09/04/18 20:42 Dose: 10 ml Spironolactone (Aldactone) 25 mg PO QAM-[facility] Last Admin: 09/05/18 08:42 Dose: 25 mg Tramadol HCl (Ultram) 50 mg PO Q4H PRN PRN Reason: Moderate Pain (4-6)
[2018-09-05] MEDS ORDERED: Midazolam HCl 2 mg/2 ml Vial ONE (12:26)
[2018-09-05] MEDS ORDERED: PROPOFOL 200 MG/20 ML VIAL ONE (12:32)
[2018-09-05] MEDS ORDERED: Lidocaine 1% PF 5 ML VIAL ONE (12:32)
[2018-09-05] MEDS ORDERED: DOPamine 400 MG/D5W 250 ML 250 ML ONE (12:58)
--- NOTE | 2018-09-05 14:19 | OP ---
DATE OF PROCEDURE: 09/05/2018 REASON FOR PROCEDURE: Ms. Sierra is a 53-year-old woman with prior history of paroxysmal atrial fibrillation, previously well suppressed with flecainide. She is also on a weight loss regimen and sleep apnea management prior to a future ablation. She is on chronic anticoagulation with apixaban. She is here with recurrent palpitations. An EKG demonstrated typical isthmus dependent atrial flutter with eventual self termination. Discussion was held about potential treatment options. At this point, she opted for a cavotricuspid isthmus ablation and she will continue her weight loss regimen and flecainide. DESCRIPTION OF PROCEDURE: The patient received propofol by Anesthesia specialist. After adequate level of sedation achieved, the right femoral venous area was prepped, draped, and anesthetized using subcutaneous lidocaine and with ultrasound guidance, the right femoral vein was accessed x2 and two 8-Iraqi short sheaths were introduced. Through this, a ThermoCool SFST catheter as well as decapolar CS catheter were then advanced to the right atrium. 3D map of the right atrium was obtained, delineating the His bundle, CS, cavotricuspid isthmus locations in detail. The CS catheter was placed in the CS. Following findings were noted. Baseline cycle length with sinus rhythm at 761 milliseconds. WY 88 milliseconds, QRS 80 milliseconds duration, QT interval 369 milliseconds, AH was 61 milliseconds, HV 65 milliseconds. Sinus node recovery time was 1014, corrected 250 milliseconds. The AV Wenckebach cycle length was 340 milliseconds. Retrograde Wenckebach cycle length was not observed due to VA block. No dual AV aarti physiology was seen. With burst atrial pacing, we were able to induce reliably a sustained typical appearing atrial flutter. Overdrive pacing in the cavotricuspid isthmus demonstrated post pacing interval equal to tachycardia cycle length about 260 milliseconds. This proved isthmus dependency. The flutter terminated during overdrive pacing maneuvers. Cavotricuspid isthmus ablation was then performed using 40 guerin energy with 5 lesions placed, total duration 4 minutes and 31 seconds. The transisthmus time increased from initial 40 milliseconds to 280 milliseconds. At this point, dopamine was administered and the burst atrial pacing was resumed. We were able to induce same flutter, and the reconnection was re-ablated. At the end of the case, the flutter was not reducible. Cardiac silhouette did not change either. CONCLUSION: 1. Inducible typical isthmus dependent atrial flutter. 2. Cavotricuspid isthmus ablation eliminated atrial flutter and re-inducibility. 3. No additional atrial arrhythmias are seen. 4. Normal sinus and adequate AV aarti function, pre and post ablation. PLAN: Continue anticoagulation. Short term flecainide. Consider weaning flecainide in the 4 to 6 weeks and see if recurrent atrial fibrillation is seen or not. If long-term atrial fibrillation is seen after sufficient weight loss, pulmonary venous isolation procedure could be considered. Job ID: [id number]
--- NOTE | 2018-09-05 17:38 | CON ---
DATE OF CONSULTATION: 09/04/2018 HISTORY OF PRESENT ILLNESS: I am seeing Ms. Sierra at our [facility] Telemetry Floor as an Electrophysiology consult and her problems are; 1. Recurrent atrial arrhythmias. a. Paroxysmal atrial fibrillation and flutter previously well suppressed with flecainide. b. Current admission with atrial flutter with typical isthmus dependent morphology with rapid rates, spontaneous conversion to sinus rhythm. 2. History of structurally normal heart based on echo in October 2015 and negative Lexiscan at that time. 3. Morbid obesity. 4. History of diastolic heart failure. 5. History of sleep apnea on CPAP. ALLERGIES: LISINOPRIL, CYMBALTA, PENICILLIN, AND BYSTOLIC. MEDICATIONS: Medications at home included; 1. Flecainide 100 mg twice a day. 2. Lasix 40 mg daily. 3. Multivitamins. 4. Eliquis 5 mg twice a day. 5. Lipitor 10 mg at bedtime. 6. Carvedilol 6.25 mg twice a day. 7. Aldactone 25 mg daily. 8. Vitamin D3. 9. Allopurinol 300 mg daily. SUBJECTIVE: Ms. Sierra was admitted with progressive dyspnea, palpitations, it started about 3 a.m. on the day of admission. She had felt lightheaded and dizzy with minimal diaphoresis. No fever or chills noted. She also had no PND, orthopnea, or angina-like discomfort. She has no stroke-like symptoms as she is taking her Eliquis medication without difficulty. She never passed out. Rest of 12-point system otherwise unremarkable. PAST MEDICAL HISTORY: As above. PAST SURGICAL HISTORY: Significant for prior cardioversions, hysterectomy, and heart catheterization in the past. SOCIAL HISTORY: The patient lives at home with family. Denies smoking, EtOH, or drug abuse. FAMILY HISTORY: Positive for hypertension. OBJECTIVE DATA: VITAL SIGNS: Blood pressure is 150/90, heart rate 70, respirations 16, and temperature 97.7 degrees Fahrenheit. GENERAL: Alert and oriented, morbidly obese woman, in no apparent distress. NECK: Supple. Jugular veins not distended. CHEST: Coarse without crackles. HEART: Sounds are regular to rate and rhythm. No murmur or gallop. ABDOMEN: Benign. Bowel sounds positive. EXTREMITIES: Lower extremities without edema, clubbing, or cyanosis. Pulses are adequate. NEUROLOGIC: The patient is nonfocal. MUSCULOSKELETAL: Without joint swelling or deformity. SKIN: Without rash. DATABASE: EKG is reviewed revealing typical isthmus dependent atrial flutter with eventual termination and sinus rhythm subsequently, the atrial flutter was 2:1 AV conduction noted. LABORATORY DATA: White count 6.1, hemoglobin 14.8, and platelet count is 193. D-dimer 0.28. Sodium 139, potassium 4.2, BUN is 15, creatinine 0.77, and AST is 30. Troponin levels are 0.016 and 0.018 consecutively. TSH 2.3. ASSESSMENT AND PLAN: Ms. Sierra is a pleasant 53-year-old woman, who has we have followed in the past for paroxysmal atrial fibrillation. Now, she presents though in atrial flutter, which possibly due to organization of her atrial arrhythmias into the typical isthmus dependent flutter circuit. The EKG is consistent with this determination. Hence, the significant symptoms will be reasonable to consider invasive approach. We discussed the options. We detailed the difference between atrial flutter and fibrillation. Also detailed the ablative approaches to these arrhythmias. We eventually agreed to consider a cavotricuspid isthmus ablation to eliminate the main flutter circuit and consider pulmonary venous isolation in the future if that becomes necessary. Also, she is on a weight loss regimen in progress with that she is treating her sleep apnea as well with continuous positive airway pressure. She is well anticoagulated. We will hold it for procedure, resume afterwards. Risk of the procedure including bleeding, infection, stroke, and recurrence are detailed. She understands and willing to proceed. Thank you again for allowing us to participate in the care of this patient. Job ID: [id number]
[2018-09-05] MEDS: Atorvastatin Calcium 10 MG TAB PO SCH (20:26)
[2018-09-06 06:08] LABS: Hemoglobin 13.6 g/dL (12.0-16.0); Platelet Count 171 thou/uL (130-400)
[2018-09-06 06:26] LABS: Anion Gap 14 mmol/L (10-20); BUN (Urea Nitrogen) 13 mg/dL (9.8-20.1); Calc. Creatinine Clearance 175 mL/min (70-130); Calcium 9.7 mg/dL (7.8-10.44); Carbon Dioxide 24 mmol/L (22-29); Chloride 104 mmol/L (98-107); Estimated GFR-MDRD Greater than 90; Glucose 91 mg/dL (70-105); Potassium 3.8 mmol/L (3.5-5.1); Sodium 138 mmol/L (136-145)
[2018-09-06] MEDS: Flecainide 50 MG TAB PO SCH (08:24)
[2018-09-06] MEDS: Furosemide 40 MG TAB PO SCH (08:25)
[2018-09-06] MEDS: Allopurinol 300 MG TAB PO SCH (08:25)
[2018-09-06] MEDS: Carvedilol 6.25 MG TAB PO SCH (08:25)
[2018-09-06] MEDS: Apixaban 5 MG TAB PO SCH (08:25)
[2018-09-06] MEDS: Spironolactone 25 MG TAB PO SCH (08:25)
[2018-09-06] MEDS: Multivitamin W/ Minerals 1 TAB PO SCH (08:25)
[2018-09-06 08:30] VITALS: BP 109/76; TEMP 97.5
--- NOTE | 2018-09-06 10:30 | PDOC.CTH ---
Cardiology Progress Note - Subjective EP PROGRESS NOTE:09/06/18 No cardiac concerns or complaint s/p EPS and ablation on 09/05. - Objective Vital Signs Temp Pulse Resp BP BP Pulse Ox 09/06/18 08:00 97.5 F L 81 17 109/76 97 09/06/18 04:00 98.3 F 78 18 100/57 L 96 Weight 295 lb 11.2 oz 09/05/18 09/06/18 09/07/18 06:59 06:59 06:59 Intake Total 1350 960 Output Total 1250 1215 Balance 100 -255 - Physical Examination General/Neuro: alert & oriented x3, NAD Neck: carotid US brisk, no JVD present Lungs: CTA, unlabored respirations Heart: PMI normal, RRR Abdomen: NT/ND, soft - Telemetry Telemetry Rhythm: SR - Labs Result Diagrams: 09/06/18 05:36 09/06/18 05:36 Troponin/CKMB Troponin I 0.018 ng/mL (< 0.028) 09/03/18 08:55 - Assessment/Plan 1. Atrial flutter, CTI dependent with prior history of afib, supressed with flecainide. -s/p successful CTI ablation -continue flecainide -continue eliquis 2. s/p EP study on 09/05 -s/p successful CTI ablation - inducible for left atrial circuits (A Fib and LA flutter), which have not been seen this admit. OK for DC by EP. 6 week follow up will be arranged. Continue meds as mentioned above. Stable post ablation.
--- NOTE | 2018-09-06 17:03 | EKG ---
Test Reason : Blood Pressure : / mmHG Vent. Rate : 080 BPM Atrial Rate : 080 BPM P-R Int : 182 ms QRS Dur : 106 ms QT Int : 406 ms P-R-T Axes : 069 049 025 degrees QTc Int : 468 ms Normal sinus rhythm Non-specific intra-ventricular conduction delay Abnormal ECG Confirmed by SHARMILA HEATON ([id number]) on 09/06/2018 5:03:18 PM Referred By: DELMY Confirmed By:SHARMILA HEATON
--- NOTE | 2018-09-06 21:33 | DIS ---
DATE OF ADMISSION: 09/03/2018 DATE OF DISCHARGE: 09/06/2018 DISCHARGE DISPOSITION: Home. FOLLOWUP: 1. Follow up with primary care physician, Dr. Pruett, in 1 week. 2. Follow up with Dr. Mark Ramirez and Dr. Ackerman in 2 to 3 weeks. ALLERGIES: THE PATIENT IS ALLERGIC TO LISINOPRIL, NEBIVOLOL, PENICILLIN, AND CYMBALTA. THE PATIENT WAS SEEN AND EXAMINED ON THE DAY OF DISCHARGE. DENIES ANY NEW COMPLAINTS. NO CHEST PAIN, SHORTNESS OF BREATH, OR PALPITATIONS REPORTED. DISCHARGE MEDICATIONS: Same as admission medications. No changes were made. BRIEF HOSPITAL COURSE: The patient is a 53-year-old female with paroxysmal atrial fibrillation, obstructive sleep apnea on CPAP, and chronic respiratory failure on home oxygen at night, presented to the emergency room with sudden onset of palpitations that started at 3 a.m. Workup was consistent with atrial fib/flutter with rapid ventricular response. She was started on Cardizem drip. She also required IV digoxin as well as IV metoprolol push. Later during the day, the patient converted to sinus rhythm. The patient was evaluated by Cardiology and Electrophysiology. She underwent radiofrequency ablation yesterday by Dr. Ackerman. Lifestyle modification was emphasized. No changes in medications were made. She will continue flecainide, carvedilol, and Eliquis. FINAL DIAGNOSES: 1. Atrial fibrillation/flutter with rapid ventricular response. 2. Morbid obesity with a BMI of 54. 3. Paroxysmal atrial fibrillation, on anticoagulation and flecainide. 4. Hyperlipidemia. 5. Chronic respiratory failure, on home oxygen at night. 6. Chronic diastolic heart failure. 7. Obstructive sleep apnea, on CPAP. PLAN: Plan was discussed with the patient and the family at the bedside. They stated understanding. Job ID: [id number]
== END 2018-09-06 11:10 | disposition home or self-care (01) | DRG 274 ==
LOC: ERS 04:32 → ERHOLD 06:44 → OBSVTOIN 06:44 → 2NO 09-04 09:19
PROVIDERS: ADMIT Hospitalist; ATTEND Hospitalist
PROC: 02583ZZ Destruction of Conduction Mechanism, Percutaneous Approach (ICD-10-PCS; principal; 2018-09-05)
PROC: 02K83ZZ Map Conduction Mechanism, Percutaneous Approach (ICD-10-PCS; 2018-09-05)
DX: I48.92 Unspecified atrial flutter (principal); J96.10 Chronic respiratory failure, unspecified whether with hypoxia or hypercapnia; I50.32 Chronic diastolic (congestive) heart failure; Z68.43 Body mass index [BMI] 50.0-59.9, adult; I27.20 Pulmonary hypertension, unspecified; Z99.81 Dependence on supplemental oxygen; E66.01 Morbid (severe) obesity due to excess calories; I48.0 Paroxysmal atrial fibrillation; G47.33 Obstructive sleep apnea (adult) (pediatric); E78.5 Hyperlipidemia, unspecified; Z99.89 Dependence on other enabling machines and devices; Z88.0 Allergy status to penicillin; Z91.018 Allergy to other foods; Z88.8 Allergy status to other drugs, medicaments and biological substances; Z79.01 Long term (current) use of anticoagulants; Z79.899 Other long term (current) drug therapy
CPT/HCPCS: 36415; 76942; 80048; 80053; 83735; 84443; 84484; 85014; 85018; 85025; 85049; 85379; 93005; 93010; 93613; 93623; 93653; 94760; 96365; 96366; 96375; 96376; C1730; C1769; J1160; J1265; J1644; J2001; J2250; J2704; J7050

== ENCOUNTER 2019-03-01 03:07 | Emergency (ER) | payer MEDICARE ==
[2019-03-01] MEDS ORDERED: Meclizine HCl 25 MG TAB ONE (03:30)
[2019-03-01 04:03] LABS: #Eosinphils 0.1 thou/uL (0.0-0.7); #Monocytes 0.4 thou/uL (0.11-0.59); %Basophils 0.2 % (0.0-1.0); %Eosinophils 1.6 % (0.0-10.0); %Lymphocytes 18.5 % (21.0-51.0); %Neutrophils 72.7 % (42.0-75.0); Hemoglobin 14.4 g/dL (12.0-16.0); Mean Corpuscular HGB CONC 34.4 g/dL (32.0-36.0); Mean Corpuscular Hemoglobin 31.7 pg (27.0-31.0); Mean Corpuscular Volume 92.1 fL (78.0-98.0); Mean Platelet Volume 10.4 fL (7.4-10.4); Platelet Count 204 thou/uL (130-400); RBC Distribution Width 13.2 % (11.5-14.5); Red Blood Cell (RBC) Count 4.55 mill/uL (4.20-5.40); White Blood Cell (WBC) Count 5.5 thou/uL (4.8-10.8)
[2019-03-01 06:17] LABS: ALT (SGPT) 26 U/L (8-55); AST (SGOT) 20 U/L (5-34); Albumin 4.2 g/dL (3.5-5.0); Alkaline Phosphatase 63 U/L (40-150); Anion Gap 11 mmol/L (10-20); BUN (Urea Nitrogen) 15 mg/dL (9.8-20.1); Bilirubin, Total 0.4 mg/dL (0.2-1.2); Calc. Creatinine Clearance 0 mL/min (70-130); Calcium 9.5 mg/dL (7.8-10.44); Carbon Dioxide 27 mmol/L (22-29); Chloride 106 mmol/L (98-107); Estimated GFR-MDRD Greater than 90; Globulin 2.5 g/dL (2.4-3.5); Glucose 92 mg/dL (70-105); Potassium 3.6 mmol/L (3.5-5.1); Protein, Total 6.7 g/dL (6.0-8.3); Sodium 140 mmol/L (136-145)
--- NOTE | 2019-03-01 07:24 | RAD ---
CHEST 1 VIEW: Date: 03/01/19 INDICATION: 53-year-old with dizziness. COMPARISON: Prior exam dated 07/30/18. FINDINGS: There is stable cardiomegaly. Lungs are clear. No pleural effusion or pneumothorax is evident. No acu te osseous abnormality is evident. IMPRESSION: No evidence of acute abnormality. Stable cardiomegaly. POS: BH
--- NOTE | 2019-03-01 07:54 | CT ---
PRELIMINARY REPORT/[facility]/EMERGENCY AFTER HOURS PROCEDURE: EXAM: CT Head Without Contrast EXAM DATE/TIME: 03/01/2019 3:53 AM CLINICAL HISTORY: 53 years old, female; Patient HX: 53 y/o F presents to ED with multiple complaints. PT describes that she awoke suddenly around 0230 with severe dizziness. She then attempted to get out of bed, at which time her dizziness worsened and she began to experience lightheadedness, such that she felt she migh t have syncopal episode. TECHNIQUE: Imaging protocol: Computed tomography of the head without contrast. COMPARISON: No relevant prior studies available. FINDINGS: Brain: No acute findings. No hemorrhage. No significant white matter disease. No edema. Ventricles: No acute findings. No ventriculomegaly. Bones/joints: No acute fracture. Sinuses: No acute findings. No significant air-fluid levels. Mastoid air cells: No acute findings. No mastoid effusion. Soft tissues: No acute findings. IMPRESSION: No acute intracranial abnormality. Thank you for allowing us to participate in the care of your patient. Dictated and Authenticated by: Waqar Grove MD 03/01/2019 4:20 AM Central Time ([place] & [place]) FINAL REPORT CT BRAIN WITHOUT CONTRAST: I agree with the preliminary report provided. No acute intracranial abnormality demonstrated. POS: KYM
== END 2019-03-01 06:30 | disposition home or self-care (01) ==
LOC: ERS 03:07
DX: R42 Dizziness and giddiness (principal); I49.9 Cardiac arrhythmia, unspecified; I11.0 Hypertensive heart disease with heart failure; I50.9 Heart failure, unspecified; I48.91 Unspecified atrial fibrillation; M19.90 Unspecified osteoarthritis, unspecified site; Z79.01 Long term (current) use of anticoagulants; Z79.899 Other long term (current) drug therapy
CPT/HCPCS: 36415; 70450; 71045; 80053; 84484; 85025; 93005; J8597

== ENCOUNTER → 2019-03-01 | Emergency (ER) | payer MEDICARE | LOC: ERS 10:55 | DX: Z53.21 Procedure and treatment not carried out due to patient leaving prior to being seen by health care provider (principal) | CPT/HCPCS: 36415; 70450; 71045; 80053; 84484; 85025; 93005; J8597 ==

== ENCOUNTER 2019-04-02 08:38 | Outpatient (CLI) | payer MEDICARE ==
--- NOTE | 2019-04-02 09:40 | MMO ---
Bilateral MAMMO Bilat Screen [facility]. CLINICAL HISTORY: Patient is 53 years old and is seen for screening. The patient has the following family history of breast cancer: maternal aunt. The patient has no personal history of cancer. VIEWS: The views performed were: bilateral craniocaudal; bilateral craniocaudal with tomosynthesis; bilateral mediolateral oblique with tomosynthesis; and right mediolateral oblique. FILMS COMPARED: The present examination has been compared to prior imaging studies performed at [facility] on 03/28/2017 and 03/30/2018, and at [facility] on 03/11/2014 and 10/08/2015. This study has been interpreted with the assistance of computer-aided detection. MAMMOGRAM FINDINGS: There are scattered fibroglandular densities. There is a focal asymmetry seen in the upper-outer region of the right breast. In the left breast, there are no suspicious masses, calcifications or areas of architectural distortion. IMPRESSION: FOCAL ASYMMETRY IN THE RIGHT BREAST REQUIRES ADDITIONAL EVALUATION. AN ULTRASOUND EXAM IS RECOMMENDED IF NEEDED. ADDITIONAL IMAGING. THE RESULTS OF THIS EXAM WERE SENT TO THE PATIENT. ACR BI-RADS Category 0 - Incomplete: Need additional imaging evaluation. [facility] will notify the patient of the need for additional imaging services. MAMMOGRAPHY NOTE: 1. A negative mammogram report should not delay a biopsy if a dominant of clinically suspicious mass is present. 2. Approximately 10% to 15% of breast cancers are not detected by mammography. 3. Adenosis and dense breasts may obscure an underlying neoplasm. Reported by: PALOMO FRENCH MD Electonically Signed: [id number]
== END 2019-04-02 08:39 | disposition home or self-care (01) ==
LOC: BICMAMMO 08:38
PROVIDERS: ATTEND Internal Medicine
DX: Z12.31 Encounter for screening mammogram for malignant neoplasm of breast (principal); N64.89 Other specified disorders of breast; Z80.3 Family history of malignant neoplasm of breast
CPT/HCPCS: 77063; 77067

== ENCOUNTER 2019-04-04 14:55 | Outpatient (CLI) | payer MEDICARE ==
--- NOTE | 2019-04-04 15:54 | MMO ---
Right Breast MAMMO Unilat Diag [facility] RT[facility]MARI. CLINICAL HISTORY: Patient is 53 years old and is seen for additional evaluation requested from prior study. The patient has the following family history of breast cancer: maternal aunt. The patient has no personal history of cancer. VIEWS: The views performed were: right craniocaudal spot compression with tomosynthesis; right mediolateral oblique spot compression with tomosynthesis; and right mediolateral with tomosynthesis. FILMS COMPARED: The present examination has been compared to prior imaging studies performed at [facility] on 03/28/2017, 03/30/2018, 04/02/2019 and 04/04/2019. This study has been interpreted with the assistance of computer-aided detection. MAMMOGRAM FINDINGS: There are scattered fibroglandular densities. There is an asymmetry seen in the upper-outer region of the right breast. Tomosynthesis compression images show the abnormality to represent superimpostion of normal breast parenchyma. There are no suspicious masses, suspicious calcifications, or new areas of architectural distortion. IMPRESSION: THERE IS NO MAMMOGRAPHIC EVIDENCE OF MALIGNANCY. A ROUTINE FOLLOW-UP MAMMOGRAM IN 1 YEAR IS RECOMMENDED. THE RESULTS OF THIS EXAM WERE SENT TO THE PATIENT. ACR BI-RADS Category 2 - Benign finding MAMMOGRAPHY NOTE: 1. A negative mammogram report should not delay a biopsy if a dominant of clinically suspicious mass is present. 2. Approximately 10% to 15% of breast cancers are not detected by mammography. 3. Adenosis and dense breasts may obscure an underlying neoplasm. Reported by: FERNANDO HIGUERA MD Electonically Signed: [id number]
== END 2019-04-04 14:56 | disposition home or self-care (01) ==
LOC: BICULT 14:55
PROVIDERS: ATTEND Internal Medicine
DX: R92.2 Inconclusive mammogram (principal)
CPT/HCPCS: 77065; G0279

== ENCOUNTER 2019-05-17 12:07 | Day surgery (SDC) | payer MEDICARE ==
[2019-05-16 08:48] VITALS: BMI 55.7
[2019-05-17] MEDS ORDERED: PROPOFOL 200 MG/20 ML VIAL ONE (13:12)
--- NOTE | 2019-05-17 17:35 | OP ---
DATE OF PROCEDURE: 05/17/2019 PRIMARY CARE PHYSICIAN: Dr. Nayeli Tellez. PROCEDURE PERFORMED: Colonoscopy. PREPROCEDURE DIAGNOSES: 1. Family history of colon cancer in a first-degree relative. 2. Personal history of colon polyps. POSTPROCEDURE DIAGNOSES: 1. Exam to cecum; good bowel preparation. 2. Mild diffuse melanosis coli. 3. Scattered diverticula, sigmoid colon. 4. Small internal hemorrhoids. 5. Otherwise, normal colonoscopy; no polyps seen. DESCRIPTION OF PROCEDURE: Written informed consent was obtained. The patient was brought to the endoscopy suite. Total intravenous anesthesia was administered by Ms. Izabel Borges CRNA. The patient was placed in the left lateral decubitus position. A digital rectal exam was performed that was unremarkable. A Pentax video colonoscope was inserted through the anal canal and advanced under direct visualization to the cecum. Position in the cecum was verified by clear identification of the appendiceal orifice and the ileocecal valve. The quality of the bowel preparation was good. Each colon segment was examined carefully as the colonoscope was slowly withdrawn from the cecum. Vascular pattern and haustral folds appeared normal. Diffuse mild darkening of the colonic mucosa was noted consistent with the diagnosis of mild melanosis coli. Occasional diverticular orifices were noted in the sigmoid colon. There was no evidence of infection or bleeding from any orifice. A retroflexed exam in the rectum demonstrated small internal hemorrhoids. They were also not bleeding. No polyps were seen. The colon was decompressed as the colonoscope was removed from the patient. She was transferred to the Day Stay surgery area for postprocedure monitoring. There were no immediate complications. RECOMMENDATIONS: 1. Resume previous diet and medications. 2. Repeat colonoscopy in 5 years. 3. Follow up with Gastroenterology as needed. Job ID: [id number]
== END 2019-05-17 17:35 | disposition home or self-care (01) ==
LOC: SDC 12:07
PROVIDERS: ATTEND Internal Medicine Gastroenterology
PROC: 0DJD8ZZ Inspection of Lower Intestinal Tract, Via Natural or Artificial Opening Endoscopic (ICD-10-PCS; principal; 2019-05-17)
DX: Z12.11 Encounter for screening for malignant neoplasm of colon (principal); K63.89 Other specified diseases of intestine; K57.31 Diverticulosis of large intestine without perforation or abscess with bleeding; K64.8 Other hemorrhoids; G47.33 Obstructive sleep apnea (adult) (pediatric); I10 Essential (primary) hypertension; E78.5 Hyperlipidemia, unspecified; M19.90 Unspecified osteoarthritis, unspecified site; E66.9 Obesity, unspecified; Z68.43 Body mass index [BMI] 50.0-59.9, adult; Z86.010 Personal history of colon polyps; Z80.0 Family history of malignant neoplasm of digestive organs; Z79.01 Long term (current) use of anticoagulants; Z79.82 Long term (current) use of aspirin; Z79.899 Other long term (current) drug therapy; Z88.0 Allergy status to penicillin; Z88.8 Allergy status to other drugs, medicaments and biological substances; Z91.018 Allergy to other foods

== ENCOUNTER 2019-07-16 20:35 | Emergency (ER) | payer MEDICARE ==
[2019-07-16] MEDS ORDERED: Meclizine HCl 25 MG TAB ONE (20:53)
[2019-07-16 21:09] LABS: Bilirubin Negative (Negative); Blood, Urine Negative (Negative); Clarity Clear (Clear); Glucose, Urine (Dipstick) Normal (Negative); Leukocyte Negative Leu/uL (Negative); Nitrite Negative (Negative); Protein, Urine (Dipstick) Negative (Neg-Trace); Urobilinogen Normal mg/dL (Less than 2)
[2019-07-16 21:22] LABS: #Basophils 0.1 thou/uL (0.0-0.2); #Eosinphils 0.1 thou/uL (0.0-0.7); #Lymphocytes 1.4 thou/uL (1.20-3.40); #Monocytes 0.4 thou/uL (0.11-0.59); #Neutrophils 3.5 thou/uL (1.40-6.50); %Basophils 1.2 % (0.0-1.0); %Eosinophils 2.5 % (0.0-10.0); %Lymphocytes 24.6 % (21.0-51.0); %Monocytes 7.6 % (0.0-10.0); %Neutrophils 64.1 % (42.0-75.0); Hemoglobin 15.7 g/dL (12.0-16.0); Mean Corpuscular HGB CONC 34.2 g/dL (32.0-36.0); Mean Corpuscular Hemoglobin 30.6 pg (27.0-31.0); Mean Corpuscular Volume 89.6 fL (78.0-98.0); Mean Platelet Volume 9.8 fL (7.4-10.4); Platelet Count 188 thou/uL (130-400); RBC Distribution Width 12.5 % (11.5-14.5); Red Blood Cell (RBC) Count 5.14 mill/uL (4.20-5.40); White Blood Cell (WBC) Count 5.5 thou/uL (4.8-10.8)
[2019-07-16 22:40] LABS: Albumin 4.4 g/dL (3.5-5.0)
[2019-07-16 22:41] LABS: Chloride 105 mmol/L (98-107); Potassium 3.4 mmol/L (3.5-5.1); Sodium 140 mmol/L (136-145)
[2019-07-16 22:42] LABS: Calcium 9.7 mg/dL (7.8-10.44); Glucose 75 mg/dL (70-105)
[2019-07-16 22:43] LABS: Globulin 2.8 g/dL (2.4-3.5); Protein, Total 7.2 g/dL (6.0-8.3)
[2019-07-16 22:44] LABS: Anion Gap 11 mmol/L (10-20); Bilirubin, Total 0.5 mg/dL (0.2-1.2); Carbon Dioxide 27 mmol/L (22-29)
[2019-07-16 22:45] LABS: Alkaline Phosphatase 70 U/L (40-110)
[2019-07-16 22:46] LABS: Calc. Creatinine Clearance 0 mL/min (70-130); Estimated GFR-MDRD Greater than 90
[2019-07-16 22:47] LABS: BUN (Urea Nitrogen) 11 mg/dL (9.8-20.1)
[2019-07-16 22:48] LABS: ALT (SGPT) 61 U/L (8-55); AST (SGOT) 35 U/L (5-34)
--- NOTE | 2019-07-21 12:36 | EKG ---
Test Reason : Blood Pressure : / mmHG Vent. Rate : 074 BPM Atrial Rate : 074 BPM P-R Int : 150 ms QRS Dur : 092 ms QT Int : 420 ms P-R-T Axes : 034 -02 020 degrees QTc Int : 466 ms Normal sinus rhythm Cannot rule out Anterior infarct , age undetermined Abnormal ECG Confirmed by ISAIAS JIMÉNEZ M.D. ([id number]), tape editor KAY KOCH ([id number]) on 07/21/2019 12:35:48 PM Referred By: Confirmed By:ISAIAS JIMÉNEZ M.D.
== END 2019-07-16 23:32 | disposition home or self-care (01) ==
LOC: ERS 20:35
DX: R42 Dizziness and giddiness (principal); I11.0 Hypertensive heart disease with heart failure; I50.9 Heart failure, unspecified; I48.91 Unspecified atrial fibrillation; M19.90 Unspecified osteoarthritis, unspecified site; Z79.01 Long term (current) use of anticoagulants; Z79.899 Other long term (current) drug therapy
CPT/HCPCS: 36415; 80053; 81003; 84484; 85025; 93005; 96360; J8597

== ENCOUNTER 2019-07-23 18:04 | Emergency (ER) | payer MEDICARE ==
--- NOTE | 2019-07-23 20:00 | RAD ---
Exam: Chest one view HISTORY:Dyspnea Comparison: 03/01/2019 FINDINGS: Cardiac silhouette:Cardiomegaly. Aorta: Unremarkable Pulmonary vessels: Normal Costophrenic angles: Clear LUNGS: No masses or consolidation. Pneumothorax: None Osseous abnormalities: None IMPRESSION: 1. Cardiomegaly without evidence of congestive heart failure.
[2019-07-23 20:24] LABS: ALT (SGPT) 40 U/L (8-55); AST (SGOT) 27 U/L (5-34); Albumin 4.6 g/dL (3.5-5.0); Alkaline Phosphatase 72 U/L (40-110); Anion Gap 18 mmol/L (10-20); BUN (Urea Nitrogen) 17 mg/dL (9.8-20.1); Bilirubin, Total 0.6 mg/dL (0.2-1.2); CK (CPK) 50 U/L (29-168); Calc. Creatinine Clearance 0 mL/min (70-130); Carbon Dioxide 25 mmol/L (22-29); Chloride 104 mmol/L (98-107); Estimated GFR-MDRD 81; Globulin 2.8 g/dL (2.4-3.5); Glucose 101 mg/dL (70-105); Potassium 3.9 mmol/L (3.5-5.1); Protein, Total 7.4 g/dL (6.0-8.3); Sodium 143 mmol/L (136-145)
== END 2019-07-23 21:03 | disposition home or self-care (01) ==
LOC: ERS 18:04
DX: R06.00 Dyspnea, unspecified (principal); I11.0 Hypertensive heart disease with heart failure; I50.9 Heart failure, unspecified; I49.9 Cardiac arrhythmia, unspecified; I48.91 Unspecified atrial fibrillation; M19.90 Unspecified osteoarthritis, unspecified site; Z79.899 Other long term (current) drug therapy; Z79.82 Long term (current) use of aspirin; Z79.01 Long term (current) use of anticoagulants
CPT/HCPCS: 36415; 71045; 80053; 82550; 83880; 84484; 93005

== ENCOUNTER 2020-04-08 09:10 | Outpatient (CLI) | payer MEDICARE ==
--- NOTE | 2020-04-08 09:53 | MMO ---
Bilateral MAMMO Bilat Screen [facility]. CLINICAL HISTORY: Patient is 54 years old and is seen for screening. The patient has the following family history of breast cancer: maternal aunt. The patient has no personal history of cancer. VIEWS: The views performed were: bilateral craniocaudal with tomosynthesis; bilateral mediolateral oblique with tomosynthesis; and cleavage view. FILMS COMPARED: The present examination has been compared to prior imaging studies performed at [facility] on 03/28/2017, 03/30/2018, 04/02/2019 and 04/04/2019. This study has been interpreted with the assistance of computer-aided detection. MAMMOGRAM FINDINGS: There are scattered fibroglandular densities. There are no suspicious masses, suspicious calcifications, or new areas of architectural distortion. IMPRESSION: THERE IS NO MAMMOGRAPHIC EVIDENCE OF MALIGNANCY. A ROUTINE FOLLOW-UP MAMMOGRAM IN 1 YEAR IS RECOMMENDED. THE RESULTS OF THIS EXAM WERE SENT TO THE PATIENT. ACR BI-RADS Category 1 - Negative MAMMOGRAPHY NOTE: 1. A negative mammogram report should not delay a biopsy if a dominant of clinically suspicious mass is present. 2. Approximately 10% to 15% of breast cancers are not detected by mammography. 3. Adenosis and dense breasts may obscure an underlying neoplasm. Reported by: GINO HEBERT MD Electonically Signed: [id number]
== END 2020-04-08 09:11 | disposition home or self-care (01) ==
LOC: BICMAMMO 09:10
PROVIDERS: ATTEND Student in an Organized Health Care Education/Training Program
DX: Z12.31 Encounter for screening mammogram for malignant neoplasm of breast (principal); Z80.3 Family history of malignant neoplasm of breast
CPT/HCPCS: 77063; 77067

== ENCOUNTER 2020-09-04 23:27 | Inpatient (IN) | payer MEDICARE ==
[2020-09-05] MEDS ORDERED: cloNIDine 0.1 MG TAB ONE (00:14)
[2020-09-05 00:16] LABS: #Eosinphils 0.1 thou/uL (0.0-0.7); #Lymphocytes 1.7 thou/uL (1.20-3.40); #Monocytes 0.4 thou/uL (0.11-0.59); #Neutrophils 3.7 thou/uL (1.40-6.50); %Basophils 0.6 % (0.0-1.0); %Monocytes 7.1 % (0.0-10.0); %Neutrophils 61.3 % (42.0-75.0); Mean Corpuscular HGB CONC 33.7 g/dL (32.0-36.0); Mean Corpuscular Hemoglobin 30.7 pg (27.0-31.0); Mean Platelet Volume 8.1 fL (7.4-10.4); Platelet Count 186 thou/uL (130-400); RBC Distribution Width 12.3 % (11.5-14.5); Red Blood Cell (RBC) Count 4.89 mill/uL (4.20-5.40)
[2020-09-05] MEDS ORDERED: Diltiazem 125 MG/25 ML ONE ×3 (00:35→00:58)
[2020-09-05 00:38] LABS: ALT (SGPT) 20 U/L (8-55); AST (SGOT) 23 U/L (5-34); Albumin 4.2 g/dL (3.5-5.0); Alkaline Phosphatase 70 U/L (40-110); Anion Gap 19 mmol/L (10-20); BUN (Urea Nitrogen) 15 mg/dL (9.8-20.1); Bilirubin, Total 0.4 mg/dL (0.2-1.2); Calc. Creatinine Clearance 0 mL/min (70-130); Calcium 9.7 mg/dL (7.8-10.44); Carbon Dioxide 19 mmol/L (22-29); Chloride 105 mmol/L (98-107); Globulin 3.2 g/dL (2.4-3.5); Glucose 109 mg/dL (70-105); Magnesium 1.9 mg/dL (1.6-2.6); Protein, Total 7.4 g/dL (6.0-8.3); Sodium 139 mmol/L (136-145)
[2020-09-05] MEDS ORDERED: Enoxaparin Sodium 100 MG/ML SYRINGE ONE (01:28)
[2020-09-05] MEDS ORDERED: Enoxaparin Sodium 60 MG/0.6 ML SYRINGE ONE ×2 (01:28→01:30)
[2020-09-05] MEDS ORDERED: Ondansetron PF 4 MG/2 ML Vial IVP PRN (02:57)
[2020-09-05] MEDS ORDERED: Acetaminophen 325 MG TAB PO PRN (02:57)
[2020-09-05] MEDS ORDERED: Diltiazem 125 MG in Sodium Chloride 0.9% 100 ML IVPB SCH (03:15)
[2020-09-05 04:12] VITALS: BMI 60.2
[2020-09-05 04:40] LABS: Troponin I 0.017 ng/mL (< 0.028)
[2020-09-05] MEDS ORDERED: Furosemide 40 MG/4 ML VIAL SLOW IVP SCH (05:45)
[2020-09-05 07:09] LABS: Troponin I 0.021 ng/mL (< 0.028)
[2020-09-05] MEDS ORDERED: Cholecalciferol 1,000 UNITS (25 MCG) TAB PO SCH (09:00)
[2020-09-05] MEDS ORDERED: Furosemide 40 MG TAB PO SCH (09:00)
[2020-09-05] MEDS ORDERED: Carvedilol 25 MG TAB PO SCH (09:00)
[2020-09-05] MEDS ORDERED: Enoxaparin Sodium 80 MG/0.8 ML SYRINGE SC SCH (09:00)
[2020-09-05] MEDS ORDERED: Multivitamin W/ Minerals 1 TAB PO SCH (09:00)
[2020-09-05] MEDS ORDERED: Aspirin 81 mg Enteric Coated Tablet PO SCH (09:00)
[2020-09-05 09:32] LABS: SARS-CoV-2 PCR by NAA Not Detected (NotDetected)
[2020-09-05] MEDS ORDERED: Apixaban 2.5 MG TAB PO SCH (10:45)
[2020-09-05 15:38] VITALS: BP 141/85; TEMP 98.3
[2020-09-05] MEDS ORDERED: Apixaban 5 MG TAB PO SCH (21:00)
[2020-09-05] MEDS ORDERED: Atorvastatin Calcium 10 MG TAB PO SCH (21:00)
== END 2020-09-05 19:39 | disposition home or self-care (01) | DRG 308 ==
LOC: ERS 23:27 → 2NO 09-05 01:00
PROVIDERS: ADMIT Family Medicine; ATTEND Family Medicine
DX: I48.0 Paroxysmal atrial fibrillation (principal); I50.33 Acute on chronic diastolic (congestive) heart failure; Z68.44 Body mass index [BMI] 60.0-69.9, adult; Z20.822 Contact with and (suspected) exposure to COVID-19; E66.01 Morbid (severe) obesity due to excess calories; I25.10 Atherosclerotic heart disease of native coronary artery without angina pectoris; G47.33 Obstructive sleep apnea (adult) (pediatric); I11.0 Hypertensive heart disease with heart failure; M19.90 Unspecified osteoarthritis, unspecified site; Z79.899 Other long term (current) drug therapy; Z88.0 Allergy status to penicillin; Z88.8 Allergy status to other drugs, medicaments and biological substances; Z79.82 Long term (current) use of aspirin; Z90.710 Acquired absence of both cervix and uterus; Z82.49 Family history of ischemic heart disease and other diseases of the circulatory system
CPT/HCPCS: 36415; 36416; 71045; 80053; 82977; 83735; 83880; 84443; 84484; 85025; 87635; 93005; 96365; 96372; 96376; 97139; J1650; J1940; U0003; U0005

== ENCOUNTER 2020-11-21 10:43 | Emergency (ER) | payer MEDICARE ==
[2020-11-21 11:19] LABS: #Eosinphils 0.1 thou/uL (0.0-0.7); #Monocytes 0.4 thou/uL (0.11-0.59); #Neutrophils 3.3 thou/uL (1.40-6.50); %Basophils 0.4 % (0.0-1.0); %Eosinophils 2.1 % (0.0-10.0); %Lymphocytes 20.6 % (21.0-51.0); %Monocytes 7.5 % (0.0-10.0); %Neutrophils 69.3 % (42.0-75.0); Hemoglobin 15.2 g/dL (12.0-16.0); Mean Corpuscular HGB CONC 33.3 g/dL (32.0-36.0); Mean Corpuscular Hemoglobin 30.4 pg (27.0-31.0); Mean Corpuscular Volume 91.3 fL (78.0-98.0); Mean Platelet Volume 7.7 fL (7.4-10.4); Platelet Count 185 thou/uL (130-400); RBC Distribution Width 12.6 % (11.5-14.5); White Blood Cell (WBC) Count 4.7 thou/uL (4.8-10.8)
[2020-11-21 11:32] LABS: ALT (SGPT) 20 U/L (8-55); AST (SGOT) 18 U/L (5-34); Albumin 4.2 g/dL (3.5-5.0); Alkaline Phosphatase 70 U/L (40-110); Anion Gap 15 mmol/L (10-20); BUN (Urea Nitrogen) 11 mg/dL (9.8-20.1); Bilirubin, Total 0.7 mg/dL (0.2-1.2); Calc. Creatinine Clearance 0 mL/min (70-130); Calcium 9.4 mg/dL (7.8-10.44); Carbon Dioxide 25 mmol/L (22-29); Chloride 105 mmol/L (98-107); Glucose 99 mg/dL (70-105); Lipase 91 U/L (8-78); Potassium 3.4 mmol/L (3.5-5.1); Protein, Total 7.2 g/dL (6.0-8.3); Sodium 142 mmol/L (136-145)
== END 2020-11-21 14:49 | disposition home or self-care (01) ==
LOC: ERS 10:43
DX: R07.89 Other chest pain (principal); I11.0 Hypertensive heart disease with heart failure; I50.9 Heart failure, unspecified; Z79.899 Other long term (current) drug therapy
CPT/HCPCS: 36415; 71045; 80053; 83690; 84484; 85025; 93005

== ENCOUNTER 2021-04-10 07:59 | Outpatient (CLI) | payer MEDICARE | END 2021-04-10 08:00 | disposition home or self-care (01) | LOC: BICMAMMO 07:59 | PROVIDERS: ATTEND Specialist | DX: Z12.31 Encounter for screening mammogram for malignant neoplasm of breast (principal); Z80.3 Family history of malignant neoplasm of breast | CPT/HCPCS: 77063; 77067 ==

== ENCOUNTER 2022-04-13 08:11 | Outpatient (CLI) | payer OTHER | END 2022-04-13 08:12 | disposition home or self-care (01) | LOC: BICMAMMO 08:11 | PROVIDERS: ATTEND Family Medicine | DX: Z12.31 Encounter for screening mammogram for malignant neoplasm of breast (principal) | CPT/HCPCS: 77063; 77067 ==

== ENCOUNTER 2022-04-30 22:52 | Inpatient (IN) | payer OTHER ==
[2022-04-30] MEDS ORDERED: Diltiazem 125 MG/25 ML ONE (23:19)
[2022-04-30 23:23] LABS: #Eosinphils 0.1 thou/uL (0.0-0.7); #Lymphocytes 1.2 thou/uL (1.20-3.40); #Monocytes 0.5 thou/uL (0.11-0.59); #Neutrophils 4.5 thou/uL (1.40-6.50); %Basophils 0.5 % (0.0-1.0); %Eosinophils 1.4 % (0.0-10.0); %Lymphocytes 19.5 % (21.0-51.0); %Neutrophils 70.6 % (42.0-75.0); Hemoglobin 14.8 g/dL (12.0-16.0); Mean Corpuscular HGB CONC 31.6 g/dL (32.0-36.0); Mean Corpuscular Hemoglobin 29.7 pg (27.0-31.0); Mean Platelet Volume 8.1 fL (7.4-10.4); Platelet Count 192 thou/uL (130-400); RBC Distribution Width 12.3 % (11.5-14.5); Red Blood Cell (RBC) Count 4.99 mill/uL (4.20-5.40); White Blood Cell (WBC) Count 6.3 thou/uL (4.8-10.8)
[2022-04-30 23:38] LABS: ALT (SGPT) 17 U/L (8-55); AST (SGOT) 17 U/L (5-34); Albumin 4.3 g/dL (3.5-5.0); Alkaline Phosphatase 74 U/L (40-110); Anion Gap 13 mmol/L (10-20); BUN (Urea Nitrogen) 15 mg/dL (9.8-20.1); Bilirubin, Total 0.4 mg/dL (0.2-1.2); Calc. Creatinine Clearance 0 mL/min (70-130); Calcium 9.9 mg/dL (7.8-10.44); Carbon Dioxide 27 mmol/L (22-29); Chloride 105 mmol/L (98-107); Estimated GFR 67; Globulin 3.4 g/dL (2.4-3.5); Glucose 117 mg/dL (70-105); Potassium 3.7 mmol/L (3.5-5.1); Protein, Total 7.7 g/dL (6.0-8.3); Sodium 141 mmol/L (136-145)
[2022-05-01] MEDS ORDERED: Acetaminophen 325 MG TAB PO PRN (00:35)
[2022-05-01] MEDS ORDERED: Diltiazem HCl 125 MG, Admixture Fee 1 EACH in Sodium Chloride 0.9% 100 ML IVPB SCH (00:39)
[2022-05-01] MEDS ORDERED: Carvedilol 25 MG TAB PO SCH ×4 (00:45→21:00)
[2022-05-01 02:53] VITALS: BMI 59.8
[2022-05-01 05:18] LABS: Anion Gap 13 mmol/L (10-20); BUN (Urea Nitrogen) 12 mg/dL (9.8-20.1); Calc. Creatinine Clearance 183 mL/min (70-130); Calcium 9.3 mg/dL (7.8-10.44); Carbon Dioxide 25 mmol/L (22-29); Chloride 104 mmol/L (98-107); Estimated GFR 84; Glucose 117 mg/dL (70-105); Potassium 3.6 mmol/L (3.5-5.1); Sodium 138 mmol/L (136-145)
[2022-05-01] MEDS ORDERED: Apixaban 5 MG TAB PO SCH (09:00)
[2022-05-01] MEDS ORDERED: Furosemide 40 MG TAB PO SCH (09:00)
[2022-05-01] MEDS ORDERED: Famotidine 20 MG TAB PO SCH (09:00)
[2022-05-01 13:19] VITALS: BP 135/86; TEMP 97.7
[2022-05-01] MEDS ORDERED: Atorvastatin Calcium 10 MG TAB PO SCH (21:00)
== END 2022-05-01 16:13 | disposition home or self-care (01) | DRG 309 ==
LOC: ERS 22:52 → 2NO 05-01 00:16
PROVIDERS: ADMIT Family Medicine; ATTEND Family Medicine
DX: I48.91 Unspecified atrial fibrillation (principal); I50.32 Chronic diastolic (congestive) heart failure; Z68.43 Body mass index [BMI] 50.0-59.9, adult; G47.33 Obstructive sleep apnea (adult) (pediatric); I11.0 Hypertensive heart disease with heart failure; E66.9 Obesity, unspecified; E78.00 Pure hypercholesterolemia, unspecified; Z20.822 Contact with and (suspected) exposure to COVID-19; Z79.01 Long term (current) use of anticoagulants; Z98.890 Other specified postprocedural states; Z79.899 Other long term (current) drug therapy; Z88.8 Allergy status to other drugs, medicaments and biological substances; Z88.0 Allergy status to penicillin; Z90.710 Acquired absence of both cervix and uterus; Z82.49 Family history of ischemic heart disease and other diseases of the circulatory system
CPT/HCPCS: 36415; 71275; 80048; 80053; 83880; 84443; 84484; 85025; 93005; 93306; U0003; U0005

== ENCOUNTER 2023-04-15 11:17 | Outpatient (CLI) | payer OTHER | END 2023-04-15 11:18 | disposition home or self-care (01) | LOC: BICMAMMO 11:17 | PROVIDERS: ATTEND Family Medicine | DX: Z12.31 Encounter for screening mammogram for malignant neoplasm of breast (principal); Z80.3 Family history of malignant neoplasm of breast | CPT/HCPCS: 77063; 77067 ==

== ENCOUNTER 2023-08-07 10:28 | Observation (INO) | payer OTHER ==
[2023-08-07] MEDS ORDERED: Aspirin Chewable 81 MG TAB ONE (10:58)
[2023-08-07] MEDS ORDERED: Calcium Chloride 1 GM/10 ML Abboject SYRINGE ONE (10:58)
[2023-08-07 11:17] LABS: #Eosinphils 0.1 thou/uL (0.0-0.7); #Monocytes 0.4 thou/uL (0.11-0.59); #Neutrophils 4.7 thou/uL (1.40-6.50); %Basophils 0.2 % (0.0-1.0); %Lymphocytes 17.8 % (21.0-51.0); %Monocytes 6.2 % (0.0-10.0); %Neutrophils 74.6 % (42.0-75.0); Hematocrit 44.9 % (36.0-47.0); Hemoglobin 14.8 g/dL (12.0-16.0); Mean Corpuscular Hemoglobin 29.7 pg (27.0-31.0); Mean Platelet Volume 10.4 fL (7.4-10.4); Platelet Count 220 10x3/uL (130-400); RBC Distribution Width 12.9 % (11.5-14.5); Red Blood Cell (RBC) Count 4.99 mill/uL (4.20-5.40); White Blood Cell (WBC) Count 6.3 10x3/uL (4.8-10.8)
[2023-08-07 11:33] LABS: INR-International Normal Ratio 1.4; PTT 33.8 sec (22.9-36.1); Prothrombin Time 16.9 sec (12.0-14.7)
[2023-08-07 11:34] LABS: ALT (SGPT) 15 U/L (8-55); AST (SGOT) 13 U/L (5-34); Albumin 4.1 g/dL (3.5-5.0); Alkaline Phosphatase 62 U/L (40-110); Anion Gap 14 mmol/L (10-20); BUN (Urea Nitrogen) 13 mg/dL (9.8-20.1); Bilirubin, Total 0.7 mg/dL (0.2-1.2); Calc. Creatinine Clearance 0 mL/min (70-130); Calcium 9.6 mg/dL (7.8-10.44); Carbon Dioxide 28 mmol/L (22-29); Chloride 103 mmol/L (98-107); Estimated GFR 67; Globulin 3.1 g/dL (2.4-3.5); Glucose 128 mg/dL (70-105); Potassium 3.5 mmol/L (3.5-5.1); Protein, Total 7.2 g/dL (6.0-8.3); Sodium 141 mmol/L (136-145)
[2023-08-07 11:37] LABS: Troponin I 0.012 ng/mL (< 0.028)
[2023-08-07] MEDS ORDERED: dilTIAZem 25 MG/5 ML VIAL ONE ×2 (12:05→13:47)
[2023-08-07] MEDS ORDERED: dilTIAZem 125 MG/25 ML SDV ONE (13:47)
[2023-08-07] MEDS ORDERED: Ondansetron PF 4 MG/2 ML Vial IVP PRN (14:45)
[2023-08-07] MEDS ORDERED: Ondansetron ODT 4 MG TAB PO PRN (14:45)
[2023-08-07] MEDS ORDERED: Acetaminophen 325 MG TAB PO PRN (14:45)
[2023-08-07] MEDS ORDERED: dilTIAZem 125 MG in Sodium Chloride 0.9% 100 ML IVPB SCH (15:00)
[2023-08-07] MEDS ORDERED: dilTIAZem 125 MG, Admixture Fee 1 EACH in Sodium Chloride 0.9% 100 ML IVPB SCH (15:00)
[2023-08-07 15:46] LABS: Troponin I Less than 0.010 ng/mL (< 0.028)
[2023-08-07 16:53] VITALS: BMI 61.4
[2023-08-07 18:35] LABS: Troponin I 0.023 ng/mL (< 0.028)
[2023-08-07] MEDS: Apixaban 5 MG TAB PO SCH (19:40)
[2023-08-07] MEDS: Atorvastatin Calcium 10 MG TAB PO SCH (19:40)
[2023-08-07] MEDS: Flecainide 50 MG TAB PO SCH (19:41)
[2023-08-07] MEDS: Carvedilol 25 MG TAB PO SCH (22:04)
[2023-08-08 05:09] LABS: #Eosinphils 0.1 thou/uL (0.0-0.7); #Monocytes 0.5 thou/uL (0.11-0.59); #Neutrophils 3.5 thou/uL (1.40-6.50); %Basophils 0.4 % (0.0-1.0); %Eosinophils 0.9 % (0.0-10.0); %Lymphocytes 24.6 % (21.0-51.0); %Monocytes 8.5 % (0.0-10.0); %Neutrophils 65.4 % (42.0-75.0); Hematocrit 42.1 % (36.0-47.0); Hemoglobin 13.7 g/dL (12.0-16.0); Mean Corpuscular HGB CONC 32.5 g/dL (32.0-36.0); Mean Corpuscular Hemoglobin 29.8 pg (27.0-31.0); Mean Corpuscular Volume 91.7 fl (78.0-98.0); Mean Platelet Volume 10.4 fL (7.4-10.4); Platelet Count 201 10x3/uL (130-400); RBC Distribution Width 13.2 % (11.5-14.5); Red Blood Cell (RBC) Count 4.59 mill/uL (4.20-5.40); White Blood Cell (WBC) Count 5.4 10x3/uL (4.8-10.8)
[2023-08-08 05:31] LABS: Anion Gap 12 mmol/L (10-20); BUN (Urea Nitrogen) 14 mg/dL (9.8-20.1); Calc. Creatinine Clearance 169 mL/min (70-130); Calcium 9.8 mg/dL (7.8-10.44); Carbon Dioxide 29 mmol/L (22-29); Chloride 104 mmol/L (98-107); Estimated GFR 78; Glucose 116 mg/dL (70-105); Potassium 3.6 mmol/L (3.5-5.1); Sodium 141 mmol/L (136-145)
[2023-08-08] MEDS: Furosemide 40 MG TAB PO SCH (08:27)
[2023-08-08] MEDS: Apixaban 5 MG TAB PO SCH (12:06)
[2023-08-08 12:28] VITALS: BP 111/59; TEMP 98.1
[2023-08-08] MEDS ORDERED: Apixaban 5 MG TAB PO SCH (21:00)
== END 2023-08-08 15:23 | disposition home or self-care (01) ==
LOC: ERS 10:28 → 2SW 14:49
PROVIDERS: ADMIT Internal Medicine; ATTEND Emergency Medicine
PROC: B24BZZZ Ultrasonography of Heart with Aorta (ICD-10-PCS; principal; 2023-08-08)
DX: I48.0 Paroxysmal atrial fibrillation (principal); I11.0 Hypertensive heart disease with heart failure; I50.32 Chronic diastolic (congestive) heart failure; E78.5 Hyperlipidemia, unspecified; E66.01 Morbid (severe) obesity due to excess calories; G47.33 Obstructive sleep apnea (adult) (pediatric); I27.20 Pulmonary hypertension, unspecified; I48.92 Unspecified atrial flutter; Z98.890 Other specified postprocedural states; Z90.710 Acquired absence of both cervix and uterus; Z88.8 Allergy status to other drugs, medicaments and biological substances; Z88.5 Allergy status to narcotic agent; Z88.2 Allergy status to sulfonamides; Z79.01 Long term (current) use of anticoagulants; Z79.899 Other long term (current) drug therapy; Z88.0 Allergy status to penicillin; Z91.018 Allergy to other foods; Z68.43 Body mass index [BMI] 50.0-59.9, adult
CPT/HCPCS: 71045; 80048; 80053; 83880; 84484 ×2; 85025 ×2; 85610; 85730; 93005 ×2; 93306; 94760; G0378 ×3; 36415; 93010; 96374; 96375; 96376

== ENCOUNTER 2023-12-23 07:29 | Inpatient (IN) | payer MEDICARE, OTHER ==
[2023-12-23] MEDS ORDERED: Furosemide 40 MG (4 mL) VIAL ONE (07:54)
[2023-12-23] MEDS ORDERED: Apixaban 5 MG TAB ONE (07:55)
[2023-12-23 08:41] LABS: #Basophils Less than 0.03 10x3/uL (0.0-0.2); #Eosinphils Less than 0.03 10x3/uL (0.0-0.7); %Eosinophils 0.3 % (0.0-10.0); %Lymphocytes 12.1 % (21.0-51.0); %Monocytes 8.3 % (0.0-10.0); Hematocrit 38.3 % (36.0-47.0); Hemoglobin 12.8 g/dL (12.0-16.0); Mean Corpuscular HGB CONC 33.4 g/dL (32.0-36.0); Mean Corpuscular Hemoglobin 30.5 pg (27.0-31.0); Mean Corpuscular Volume 91.2 fL (78.0-98.0); Mean Platelet Volume 10.5 fL (7.4-10.4); Platelet Count 159 10x3/uL (130-400)
[2023-12-23 08:57] LABS: INR-International Normal Ratio 1.5; PTT 42.9 sec (22.9-36.1); Prothrombin Time 17.9 sec (12.0-14.7)
[2023-12-23 09:00] LABS: ALT (SGPT) 13 U/L (8-55); AST (SGOT) 17 U/L (5-34); Albumin 3.7 g/dL (3.5-5.0); Alkaline Phosphatase 57 U/L (40-110); Anion Gap 15 mmol/L (10-20); BUN (Urea Nitrogen) 9 mg/dL (9.8-20.1); Bilirubin, Total 1.3 mg/dL (0.2-1.2); Calc. Creatinine Clearance 0 mL/min (70-130); Calcium 9.2 mg/dL (7.8-10.44); Carbon Dioxide 22 mmol/L (22-29); Chloride 105 mmol/L (98-107); Estimated GFR 81; Globulin 3.2 g/dL (2.4-3.5); Glucose 116 mg/dL (70-105); Magnesium 1.7 mg/dL (1.6-2.6); Potassium 3.5 mmol/L (3.5-5.1); Protein, Total 6.9 g/dL (6.0-8.3); Sodium 138 mmol/L (136-145)
[2023-12-23 09:01] LABS: Troponin I 0.026 ng/mL (< 0.028)
[2023-12-23 10:54] LABS: Influenza A by NAA Not Detected (NotDetected); Influenza B by NAA Not Detected (NotDetected); SARS-CoV-2 NAA Rapid Test Not Detected (NotDetected)
[2023-12-23] MEDS: Furosemide 40 MG (4 mL) VIAL SLOW IVP SCH (14:24)
[2023-12-23] MEDS: Carvedilol 25 MG TAB PO SCH (20:37)
[2023-12-23] MEDS: Acetaminophen 325 MG TAB PO PRN (20:37)
[2023-12-23] MEDS: Famotidine 20 MG TAB PO SCH (20:37)
[2023-12-23] MEDS: Apixaban 5 MG TAB PO SCH (20:37)
[2023-12-24 04:45] LABS: Anion Gap 11 mmol/L (10-20); BUN (Urea Nitrogen) 10 mg/dL (9.8-20.1); Calc. Creatinine Clearance 0 mL/min (70-130); Carbon Dioxide 27 mmol/L (22-29); Chloride 103 mmol/L (98-107); Estimated GFR 88; Glucose 105 mg/dL (70-105); Potassium 3.4 mmol/L (3.5-5.1); Sodium 138 mmol/L (136-145)
[2023-12-24 05:10] VITALS: BMI 65.9
[2023-12-24] MEDS: Guaifenesin DM 100-10/5 ML UDCUP PO PRN (05:15)
[2023-12-24] MEDS ORDERED: Electrolyte Replacement Protocol 1 EACH FS SCH (09:45)
[2023-12-24] MEDS ORDERED: guaiFENesin ER 600 MG TAB PO SCH (10:00)
[2023-12-24] MEDS ORDERED: Electrolyte Replacement Protocol FS PRN (10:00)
[2023-12-24] MEDS: guaiFENesin ER 600 MG TAB PO SCH ×2 (10:04→20:47)
[2023-12-24] MEDS: Potassium Chloride 20 MEQ TAB PO SCH (10:05)
[2023-12-24] MEDS: Flecainide 50 MG TAB PO SCH ×2 (10:05→20:48)
[2023-12-24] MEDS ORDERED: dilTIAZem 125 MG in Sodium Chloride 0.9% 100 ML IVPB SCH (10:30)
[2023-12-24] MEDS: Ipratropium/Albuterol 3 ML NEB NEB SCH (10:49)
[2023-12-24] MEDS: dilTIAZem 125 MG, Admixture Fee 1 EACH in Sodium Chloride 0.9% 100 ML IVPB SCH (11:55)
[2023-12-24] MEDS ORDERED: Ipratropium/Albuterol 3 ML NEB NEB SCH (13:00)
[2023-12-24] MEDS ORDERED: Levalbuterol HCl 0.63 MG/3 ML NEB NEB PRN (13:02)
[2023-12-24] MEDS: dilTIAZem 25 MG/5 ML VIAL SLOW IVP SCH (13:30)
[2023-12-24] MEDS: Levalbuterol HCl 0.63 MG/3 ML NEB NEB SCH (14:40)
[2023-12-24 16:29] LABS: Potassium 3.9 mmol/L (3.5-5.1)
[2023-12-24 16:38] VITALS: BP 117/61
[2023-12-24] MEDS: Atorvastatin Calcium 10 MG TAB PO SCH (20:48)
[2023-12-25 06:04] LABS: Anion Gap 15 mmol/L (10-20); BUN (Urea Nitrogen) 10 mg/dL (9.8-20.1); Calc. Creatinine Clearance 194 mL/min (70-130); Calcium 9.2 mg/dL (7.8-10.44); Carbon Dioxide 27 mmol/L (22-29); Chloride 105 mmol/L (98-107); Estimated GFR 90; Glucose 106 mg/dL (70-105); Magnesium 1.7 mg/dL (1.6-2.6); Potassium 3.6 mmol/L (3.5-5.1); Sodium 143 mmol/L (136-145)
[2023-12-25] MEDS: Magnesium 2 GM/50 ML(in water) 2 GM in Premix 1 BAG IVPB SCH ×2 (07:32→08:09)
[2023-12-25] MEDS: predniSONE 20 MG TAB PO SCH (11:04)
[2023-12-26 04:54] LABS: Anion Gap 16 mmol/L (10-20); BUN (Urea Nitrogen) 14 mg/dL (9.8-20.1); Calc. Creatinine Clearance 197 mL/min (70-130); Calcium 9.6 mg/dL (7.8-10.44); Carbon Dioxide 24 mmol/L (22-29); Chloride 105 mmol/L (98-107); Estimated GFR 91; Glucose 133 mg/dL (70-105); Magnesium 1.9 mg/dL (1.6-2.6); Potassium 3.8 mmol/L (3.5-5.1); Sodium 141 mmol/L (136-145)
[2023-12-26 07:46] VITALS: TEMP 97.4
[2023-12-26] MEDS: Magnesium 2 GM/50 ML(in water) 2 GM in Premix 1 BAG IVPB SCH (09:07)
[2023-12-26] MEDS: predniSONE 20 MG TAB PO SCH (09:07)
[2023-12-26] MEDS ORDERED: Carvedilol 25 MG TAB PO SCH (21:00)
== END 2023-12-26 11:20 | disposition home or self-care (01) | DRG 291 ==
LOC: ERS 07:29 → 2SW 12:10 → UNDOADMOB 12:10 → IMCU/EMU 12-24 16:33 → 2SW 12-24 16:33 → IMCU/EMU 12-24 16:34 → INTOOBSV 12-25 12:10 → OBSVTOIN 12-25 12:10 → UNDODISIN 12-26 11:20
PROVIDERS: ADMIT Family Medicine; ATTEND Nurse Practitioner Acute Care
PROC: 5A09357 Assistance with Respiratory Ventilation, Less than 24 Consecutive Hours, Continuous Positive Airway Pressure (ICD-10-PCS; principal; 2023-12-24)
DX: I11.0 Hypertensive heart disease with heart failure (principal); I50.33 Acute on chronic diastolic (congestive) heart failure; J96.01 Acute respiratory failure with hypoxia; Z68.43 Body mass index [BMI] 50.0-59.9, adult; J06.9 Acute upper respiratory infection, unspecified; G47.33 Obstructive sleep apnea (adult) (pediatric); E66.01 Morbid (severe) obesity due to excess calories; E78.5 Hyperlipidemia, unspecified; I48.0 Paroxysmal atrial fibrillation; Z88.0 Allergy status to penicillin; Z91.018 Allergy to other foods; Z88.8 Allergy status to other drugs, medicaments and biological substances; Z90.710 Acquired absence of both cervix and uterus; Z98.890 Other specified postprocedural states
CPT/HCPCS: 36415; 71045; 80048; 80053; 83605; 83735; 83880; 84484; 85025; 85610; 85730; 87040; 93005; 93010; 94640; 94760; 96374; 97139; J1940; J3475; J3490; J7512; J7614

== ENCOUNTER 2023-12-28 21:14 | Observation (INO) | payer OTHER ==
[2023-12-28 22:26] LABS: #Basophils Less than 0.03 10x3/uL (0.0-0.2); %Basophils 0.3 % (0.0-1.0); %Eosinophils 1.5 % (0.0-10.0); %Lymphocytes 28.2 % (21.0-51.0); %Monocytes 7.1 % (0.0-10.0); %Neutrophils 62.6 % (42.0-75.0); Hematocrit 44.5 % (36.0-47.0); Hemoglobin 14.2 g/dL (12.0-16.0); Mean Corpuscular HGB CONC 31.9 g/dL (32.0-36.0); Mean Corpuscular Hemoglobin 29.6 pg (27.0-31.0); Mean Corpuscular Volume 92.7 fL (78.0-98.0); Mean Platelet Volume 10.1 fL (7.4-10.4); Platelet Count 245 10x3/uL (130-400); RBC Distribution Width 12.9 % (11.5-14.5)
[2023-12-28 22:46] LABS: ALT (SGPT) 20 U/L (8-55); AST (SGOT) 23 U/L (5-34); Albumin 3.7 g/dL (3.5-5.0); Alkaline Phosphatase 53 U/L (40-110); BUN (Urea Nitrogen) 23 mg/dL (9.8-20.1); Bilirubin, Total 0.4 mg/dL (0.2-1.2); Calc. Creatinine Clearance 0 mL/min (70-130); Carbon Dioxide 30 mmol/L (22-29); Chloride 104 mmol/L (98-107); Estimated GFR 60; Globulin 3.6 g/dL (2.4-3.5); Glucose 129 mg/dL (70-105); Potassium 3.8 mmol/L (3.5-5.1); Protein, Total 7.3 g/dL (6.0-8.3); Sodium 145 mmol/L (136-145)
[2023-12-28 22:51] LABS: Troponin I 0.032 ng/mL (< 0.028)
[2023-12-28 22:58] LABS: Anion Gap 16 mmol/L (10-20); Calcium 10.1 mg/dL (7.8-10.44)
[2023-12-29] MEDS ORDERED: Atorvastatin Calcium 10 MG TAB ONE (01:33)
[2023-12-29] MEDS ORDERED: Carvedilol 25 MG TAB ONE (01:33)
[2023-12-29] MEDS ORDERED: Apixaban 5 MG TAB ONE (01:33)
[2023-12-29] MEDS ORDERED: Acetaminophen 650 MG Suppository PR PRN (02:29)
[2023-12-29] MEDS ORDERED: Ondansetron ODT 4 MG TAB PO PRN (02:29)
[2023-12-29] MEDS ORDERED: Ondansetron PF 4 MG/2 ML Vial IVP PRN (02:29)
[2023-12-29] MEDS ORDERED: Acetaminophen 325 MG TAB PO SCH (02:30)
[2023-12-29] MEDS ORDERED: hydrALAZINE 20 MG/ML VIAL SLOW IVP PRN (02:33)
[2023-12-29] MEDS ORDERED: Acetaminophen 325 MG TAB PO PRN (02:48)
[2023-12-29 02:56] LABS: #Basophils Less than 0.03 10x3/uL (0.0-0.2); %Basophils 0.3 % (0.0-1.0); %Lymphocytes 27.7 % (21.0-51.0); %Monocytes 8.8 % (0.0-10.0); %Neutrophils 60.7 % (42.0-75.0); Hemoglobin 14.8 g/dL (12.0-16.0); Mean Corpuscular HGB CONC 32.2 g/dL (32.0-36.0); Mean Corpuscular Hemoglobin 29.5 pg (27.0-31.0); Mean Corpuscular Volume 91.6 fL (78.0-98.0); Mean Platelet Volume 10.1 fL (7.4-10.4); Platelet Count 232 10x3/uL (130-400); Red Blood Cell (RBC) Count 5.02 mill/uL (4.20-5.40)
[2023-12-29 03:26] LABS: Troponin I 0.025 ng/mL (< 0.028)
[2023-12-29 04:19] VITALS: BMI 63.8
[2023-12-29] MEDS: Flecainide 50 MG TAB PO SCH ×2 (04:19→09:07)
[2023-12-29 04:22] VITALS: BP 157/123; TEMP 98.1
[2023-12-29 04:37] LABS: Anion Gap 19 mmol/L (10-20); BUN (Urea Nitrogen) 22 mg/dL (9.8-20.1); Calc. Creatinine Clearance 150 mL/min (70-130); Calcium 10.2 mg/dL (7.8-10.44); Carbon Dioxide 23 mmol/L (22-29); Chloride 104 mmol/L (98-107); Estimated GFR 65; Glucose 120 mg/dL (70-105); Magnesium 1.9 mg/dL (1.6-2.6); Potassium 3.9 mmol/L (3.5-5.1); Sodium 142 mmol/L (136-145)
== END 2023-12-29 09:47 | disposition home or self-care (01) ==
LOC: ERS 21:14 → ERHOLD 12-29 00:18
PROVIDERS: ADMIT Student in an Organized Health Care Education/Training Program; ATTEND Internal Medicine
DX: R06.00 Dyspnea, unspecified (principal); I48.0 Paroxysmal atrial fibrillation; I11.0 Hypertensive heart disease with heart failure; I50.30 Unspecified diastolic (congestive) heart failure; R79.89 Other specified abnormal findings of blood chemistry; M19.90 Unspecified osteoarthritis, unspecified site; G47.33 Obstructive sleep apnea (adult) (pediatric); E66.01 Morbid (severe) obesity due to excess calories; Z90.710 Acquired absence of both cervix and uterus; Z79.01 Long term (current) use of anticoagulants; Z88.8 Allergy status to other drugs, medicaments and biological substances; Z88.0 Allergy status to penicillin; Z79.899 Other long term (current) drug therapy; Z68.44 Body mass index [BMI] 60.0-69.9, adult
CPT/HCPCS: 71045; 80048; 80053; 83735; 83880; 84484 ×2; 85025 ×2; 93005; G0378; 36415

== ENCOUNTER 2024-04-05 10:28 | Day surgery (SDC) | payer OTHER ==
[2024-04-04 11:19] VITALS: BMI 60.7
[2024-04-05] MEDS ORDERED: Lidocaine 1% PF 5 ML VIAL ONE (14:18)
[2024-04-05] MEDS ORDERED: PROPOFOL 200 MG/20 ML VIAL ONE (14:18)
== END 2024-04-05 15:45 | disposition home or self-care (01) ==
LOC: SDC 10:28
PROVIDERS: ATTEND Internal Medicine Gastroenterology
PROC: 0DJD8ZZ Inspection of Lower Intestinal Tract, Via Natural or Artificial Opening Endoscopic (ICD-10-PCS; principal; 2024-04-05)
DX: Z12.11 Encounter for screening for malignant neoplasm of colon (principal); Z80.0 Family history of malignant neoplasm of digestive organs; Z86.0100 Personal history of colon polyps, unspecified; K57.30 Diverticulosis of large intestine without perforation or abscess without bleeding; K64.8 Other hemorrhoids; I10 Essential (primary) hypertension; E78.5 Hyperlipidemia, unspecified; I48.91 Unspecified atrial fibrillation; Z79.01 Long term (current) use of anticoagulants; Z79.899 Other long term (current) drug therapy; Z88.0 Allergy status to penicillin; Z88.8 Allergy status to other drugs, medicaments and biological substances
CPT/HCPCS: G0105; J2704

== ENCOUNTER 2024-05-25 11:06 | Outpatient (CLI) | payer OTHER | END 2024-05-25 11:07 | disposition home or self-care (01) | LOC: BICMAMMO 11:06 | PROVIDERS: ATTEND Family Medicine | DX: Z12.31 Encounter for screening mammogram for malignant neoplasm of breast (principal); Z80.3 Family history of malignant neoplasm of breast | CPT/HCPCS: 77063; 77067 ==